=== PATIENT | male | born 1950 | race Caucasian/White ===

== ENCOUNTER 2018-02-14 19:10 | Observation (INO) | payer OTHER ==
[2018-02-14 20:06] LABS: Absolute Monocytes 0.4 K/uL (0.1-1.3); Absolute Neutrophil 4.7 K/uL (1.8-8.0); Basophils % 0.4 % (0-1.3); Eosinophils % 0.3 % (0-4.4); Hematocrit 36.1 % (39.6-49.0); Lymphocytes % 15.8 % (15.3-44.8); MCH 30.6 pg (27.0-35.0); MCV 92.7 fL (80-100); MPV 7.9 fL (7.6-11.3); Monocytes % 6.2 % (3.3-12.3); Protime INR 0.92
[2018-02-14 20:17] LABS: Potassium 3.8 mEq/L (3.6-5.0)
[2018-02-14 20:23] LABS: Albumin 3.1 g/dL (3.2-5.5); Bilirubin Direct 0.1 mg/dL (0-0.2); Bilirubin Total 0.8 mg/dL (0.3-1.2); Magnesium 1.8 mg/dL (1.8-2.5); Protein, Total 5.7 g/dL (6.0-8.3)
[2018-02-14 21:23] LABS: Blood Morphology Comment NOT SEEN (NOT SEEN); Platelet Estimate ADEQ; Urine White Blood Cell Casts OK
--- NOTE | 2018-02-14 21:31 | EDPHYS ---
Physician Documentation [facility] Name: Victoriano Coronel Age: 67 yrs Sex: Male : 1950 Arrival Date: 02/14/2018 Time: 19:14 Bed 25 Private MD: Maco Han C ED Physician Gerson Matias HPI: 02/14 19:30 This 67 yrs old Male presents to ER via Ambulatory with complaints of Feet kdr Swelling, Leg Swelling. 19:30 The patient presents with swelling. The complaints affect the lateral aspect of left kdr calf, left lateral ankle, lateral aspect of left foot, left calf, left Achilles, left heel, medial aspect of left calf, left medial ankle, medial aspect of left foot, left vogt, anterior aspect of left ankle and dorsum of left foot, lateral aspect of right calf, right ankle, lateral aspect of right foot, right calf, right Achilles, right heel, medial aspect of right calf, medial aspect of right foot, right vogt, anterior aspect of right ankle and dorsum of right foot. Context: The problem was sustained at home, resulted from an unknown cause, the patient can fully bear weight, the patient is able to ambulate, Problem is a result from a previous injury: No. Had a long car trip last week. Onset: The symptoms/episode began/occurred gradually, 2 day(s) ago. Modifying factors: The symptoms are alleviated by nothing. the symptoms are aggravated by nothing. Associated signs and symptoms: The patient has no apparent associated signs or symptoms. Treatment prior to arrival includes: no previous treatment. Severity of symptoms: At their worst the symptoms were mild, moderate, just prior to arrival, in the emergency department the symptoms are unchanged. The patient has not experienced similar symptoms in the past. The patient has not recently seen a physician. The patient had a long car trip last week. Has had intermittent swelling but never this severe or persistent. Was admitted in 2014 for phlebitis.. Historical: - Allergies: 19:32 No Known Allergies; ak1 - Home Meds: 19:32 metformin 500 mg Oral tab [Active]; trazodone 100 mg Oral tab [Active]; Symbicort ak1 160-4.5 mcg/actuation inhalation HFAA [Active]; clondine 0.3mg [Active]; losartan 100 mg oral tab [Active]; atorvastatin 20 mg oral tab [Active]; amlodipine 5 mg tab [Active]; donepezil 10 mg oral tab 1 tab once daily [Active]; doxazosin mesylate (bulk) 2mg miscellaneous powd [Active]; - PMHx: 19:32 COPD; Diabetes - NIDDM; Diverticulitis; colitis; Hypertension; ak1 - PSHx: 19:32 None; ak1 - Immunization history:: Adult Immunizations unknown. - Social history:: Smoking status: Patient/guardian denies using tobacco. - Ebola Screening: : Patient negative for fever greater than or equal to 101.5 degrees Fahrenheit, and additional compatible Ebola Virus Disease symptoms Patient denies exposure to infectious person Patient denies travel to an Ebola-affected area in the 21 days before illness onset. ROS: 19:30 Constitutional: Negative for fever, chills, and weight loss, Eyes: Negative for injury, kdr pain, redness, and discharge, ENT: Negative for injury, pain, and discharge, Neck: Negative for injury, pain, and swelling, Cardiovascular: Negative for chest pain, palpitations, and edema, Respiratory: Negative for shortness of breath, cough, wheezing, and pleuritic chest pain, Abdomen/GI: Negative for abdominal pain, nausea, vomiting, diarrhea, and constipation, Back: Negative for injury and pain, : Negative for injury, bleeding, discharge, and swelling, Skin: Negative for injury, rash, and discoloration, Neuro: Negative for headache, weakness, numbness, tingling, and seizure activity. Psych: Negative for depression, anxiety, suicide ideation, homicidal ideation, and hallucinations, Allergy/Immunology: Negative for hives, rash, and allergies, Endocrine: Negative for neck swelling, polydipsia, polyuria, polyphagia, and marked weight changes, Hematologic/Lymphatic: Negative for swollen nodes, abnormal bleeding, and unusual bruising. 19:30 MS/extremity: Positive for swelling, Negative for injury or acute deformity, decreased range of motion, deformity, ecchymosis, erythema, laceration, paresthesias, rash, tenderness, tingling. Exam: 19:30 Constitutional: This is a well developed, well nourished patient who is awake, alert, kdr and in no acute distress. Head/Face: Normocephalic, atraumatic. Eyes: Pupils equal round and reactive to light, extra-ocular motions intact. Lids and lashes normal. Conjunctiva and sclera are non-icteric and not injected. Cornea within normal limits. Periorbital areas with no swelling, redness, or edema. Neck: Trachea midline, no thyromegaly or masses palpated, and no cervical lymphadenopathy. Supple, full range of motion without nuchal rigidity, or vertebral point tenderness. No Meningismus. Chest/axilla: Normal chest wall appearance and motion. Nontender with no deformity. No lesions are appreciated. Cardiovascular: Regular rate and rhythm with a normal S1 and S2. No gallops, murmurs, or rubs. Normal PMI, no JVD. No pulse deficits. Respiratory: Lungs have equal breath sounds bilaterally, clear to auscultation and percussion. No rales, rhonchi or wheezes noted. No increased work of breathing, no retractions or nasal flaring. Abdomen/GI: Soft, non-tender, with normal bowel sounds. Distended (normal) abdomen but no tympany. No guarding or rebound. No evidence of tenderness throughout. Back: No spinal tenderness. No costovertebral tenderness. Full range of motion. Skin: Warm, dry with normal turgor. Normal color with no rashes, no lesions, and no evidence of cellulitis. Neuro: Awake and alert, GCS 15, oriented to person, place, time, and situation. Cranial nerves II-XII grossly intact. Motor strength 5/5 in all extremities. Sensory grossly intact. Cerebellar exam normal. Normal gait. Psych: Awake, alert, with orientation to person, place and time. Behavior, mood, and affect are within normal limits. 19:30 Musculoskeletal/extremity: Extremities: ROM: no acute changes, DVT Exam: no pain, no tenderness, negative Homans' sign noted on exam, no appreciated bluish discoloration, no erythema, no increased warmth, swelling, that is marked, of the right leg, of the left leg, tenderness, that is mild, of the right leg, of the left leg, Nails: Vital Signs: 19:25 BP 142 / 72; Pulse 81; Resp 20; Temp 98.1; Pulse Ox 95% on R/A; Weight 86.18 kg (R); ak1 Height 5 ft. 8 in. (172.72 cm) (R); Pain 5/10; 20:35 BP 123 / 72; Pulse 66; Resp 17; Pulse Ox 95% on R/A; kr2 22:31 BP 129 / 81; Pulse 74; Resp 18; Pulse Ox 96% on R/A; mt 19:25 Body Mass Index 28.89 (86.18 kg, 172.72 cm) ak1 MDM: 19:30 Data reviewed: vital signs, nurses notes, lab test result(s), radiologic studies. kdr Counseling: I had a detailed discussion with the patient and/or guardian regarding: the historical points, exam findings, and any diagnostic results supporting the discharge/admit diagnosis, lab results, radiology results. 21:30 Patient medically screened. [facility] 02/14 19:29 Order name: Basic Metabolic Panel; Complete Time: 20:56 kdr 02/14 19:29 Order name: BNP; Complete Time: 20:56 [facility] 02/14 19:29 Order name: CBC with Diff [facility] 02/14 19:29 Order name: LFT's; Complete Time: 20:56 [facility] 02/14 19:29 Order name: Magnesium; Complete Time: 20:56 [facility] 02/14 19:29 Order name: PT-INR; Complete Time: 20:56 [facility] 02/14 19:29 Order name: Ptt, Activated; Complete Time: 20:56 [facility] 02/14 19:29 Order name: Troponin (emerg Dept Use Only); Complete Time: 20:56 [facility] 02/14 20:20 Order name: CBC Smear Scan [facility] 02/14 22:09 Order name: Basic Metabolic Panel [facility] 02/14 22:09 Order name: Basic Metabolic Panel [facility] 02/14 22:09 Order name: CBC with Automated Diff EDMS 02/14 22:09 Order name: CBC with Automated Diff EDMS 02/14 22:37 Order name: Urine Dipstick--Ancillary (enter results) eb 02/14 19:29 Order name: XRAY Chest (1 view) [facility] 02/14 19:29 Order name: EKG; Complete Time: 19:30 kdr 02/14 19:29 Order name: Cardiac monitoring; Complete Time: 19:52 [facility] 02/14 19:29 Order name: EKG - Nurse/Tech; Complete Time: 20:09 kdr 02/14 19:29 Order name: IV Saline Lock; Complete Time: 19:52 kdr 02/14 19:29 Order name: Labs collected and sent; Complete Time: 19:52 [facility] 02/14 19:29 Order name: O2 Per Protocol; Complete Time: 19:52 [facility] 02/14 19:29 Order name: O2 Sat Monitoring; Complete Time: 19:52 [facility] 02/14 19:29 Order name: Urine Dipstick-Ancillary (obtain specimen); Complete Time: 22:55 [facility] 02/14 19:29 Order name: US Extremity Venous W Compression Tera kdr 02/14 22:09 Order name: Regular EDMS 02/14 22:54 Order name: US EDMS 02/14 22:55 Order name: Urine Dipstick-Ancillary EDMS Administered Medications: 22:00 Drug: Lasix 20 mg Route: IVP; Site: left antecubital; kr2 23:25 Follow up: Response: No adverse reaction kr2 Disposition: 02/14/18 21:30 Hospitalization ordered by Maco Han for Inpatient Admission. Preliminary diagnosis is Bilateral Lower extremity swelling/edema. - Bed requested for Telemetry/MedSurg (Inpatient). - Status is Inpatient Admission. kr2 - Condition is Fair. - Problem is new. - Symptoms are unchanged. UTI on Admission? No Signatures: Dispatcher [facility] Almita Collado RN RN mw Gerson Matias MD MD kdr Jonna Butler RN RN ak1 Ashlee Mckenzie, JUNG RN kr2 Corrections: (The following items were deleted from the chart) 21:53 21:30 Hospitalization Ordered by A Emely STRATTON for Inpatient Admission. Preliminary mw diagnosis is Bilateral Lower extremity swelling/edema. Bed requested for Telemetry/MedSurg (Inpatient). Status is Inpatient Admission. Condition is Fair. Problem is new. Symptoms are unchanged. UTI on Admission? No. kdr : 21:53 02/14/2018 21:30 Hospitalization Ordered by A Emely STRATTON for Inpatient Admission. kr2 Preliminary diagnosis is Bilateral Lower extremity swelling/edema. Bed requested for Telemetry/MedSurg (Inpatient). Status is Inpatient Admission. Condition is Fair. Problem is new. Symptoms are unchanged. UTI on Admission? No. mw
--- NOTE | 2018-02-14 21:31 | ER ---
Nurse's Notes [facility] Name: Victoriano Coronel Age: 67 yrs Sex: Male : 1950 Arrival Date: 02/14/2018 Time: 19:14 Bed 25 Private MD: Maco Han C Diagnosis: Bilateral Lower extremity swelling/edema Presentation: 02/14 19:25 Presenting complaint: Patient states: bilateral lower leg and foot pitting edema since ak1 yesterday. pt currently taking prednisone, Liadia from Dr. Nova for his colitis. Transition of care: patient was not received from another setting of care. Onset of symptoms was February 13, 2018. Risk Assessment: Do you want to hurt yourself or someone else? Patient reports no desire to harm self or others. Initial Sepsis Screen: Does the patient meet any 2 criteria? No. Patient's initial sepsis screen is negative. Does the patient have a suspected source of infection? No. Patient's initial sepsis screen is negative. Care prior to arrival: None. 19:25 Method Of Arrival: Ambulatory ak1 19:25 Acuity: JAVI 3 ak1 Triage Assessment: 19:33 General: Appears in no apparent distress. Behavior is calm, cooperative. Pain: ak1 Complains of pain in right foot, left foot, right leg and left leg. EENT: No signs and/or symptoms were reported regarding the EENT system. Neuro: No deficits noted. Cardiovascular: No deficits noted. Respiratory: No deficits noted. GI: No signs and/or symptoms were reported involving the gastrointestinal system. : No signs and/or symptoms were reported regarding the genitourinary system. Derm: Skin is dry, Skin temperature is warm. Musculoskeletal: Swelling pitting edema. Historical: - Allergies: 19:32 No Known Allergies; ak1 - Home Meds: 19:32 metformin 500 mg Oral tab [Active]; trazodone 100 mg Oral tab [Active]; Symbicort ak1 160-4.5 mcg/actuation inhalation HFAA [Active]; clondine 0.3mg [Active]; losartan 100 mg oral tab [Active]; atorvastatin 20 mg oral tab [Active]; amlodipine 5 mg tab [Active]; donepezil 10 mg oral tab 1 tab once daily [Active]; doxazosin mesylate (bulk) 2mg miscellaneous powd [Active]; - PMHx: 19:32 COPD; Diabetes - NIDDM; Diverticulitis; colitis; Hypertension; ak1 - PSHx: 19:32 None; ak1 - Immunization history:: Adult Immunizations unknown. - Social history:: Smoking status: Patient/guardian denies using tobacco. - Ebola Screening: : Patient negative for fever greater than or equal to 101.5 degrees Fahrenheit, and additional compatible Ebola Virus Disease symptoms Patient denies exposure to infectious person Patient denies travel to an Ebola-affected area in the 21 days before illness onset. Screenin:33 Abuse screen: Denies threats or abuse. Denies injuries from another. Nutritional ak1 screening: No deficits noted. Tuberculosis screening: No symptoms or risk factors identified. Fall Risk None identified. Assessment: 19:30 General: Appears in no apparent distress. comfortable, well groomed, well developed, kr2 well nourished, Behavior is calm, cooperative, appropriate for age. Pain: Complains of pain in left leg and right leg Pain radiates to left foot and right foot Pain currently is 2 out of 10 on a pain scale. Quality of pain is described as aching, tender, Is continuous, Alleviated by rest, Aggravated by increased activity, weight bearing. Neuro: Level of Consciousness is awake, alert, obeys commands, Oriented to person, place, time, situation, Appropriate for age. Cardiovascular: Capillary refill < 3 seconds in bilateral fingers Patient's skin is warm and dry. Edema is 2+ to left leg and right leg. Respiratory: Airway is patent Respiratory effort is even, unlabored, Respiratory pattern is regular, symmetrical. GI: Abdomen is round non-distended. : No signs and/or symptoms were reported regarding the genitourinary system. EENT: Oral mucosa is moist. Derm: Skin is intact, is healthy with good turgor, Skin is pink, warm \T\ dry. redness to bilateral lower extremities. Musculoskeletal: Circulation, motion, and sensation intact. 20:30 Reassessment: Patient appears in no apparent distress at this time. Patient and/or kr2 family updated on plan of care and expected duration. Pain level reassessed. Patient is alert, oriented x 3, equal unlabored respirations, skin warm/dry/pink. Patient denies pain at this time. 21:30 Reassessment: No changes from previously documented assessment. kr2 22:30 Reassessment: Patient appears in no apparent distress at this time. kr2 23:26 Reassessment: Patient appears in no apparent distress at this time. Patient and/or kr2 family updated on plan of care and expected duration. Pain level reassessed. Patient is alert, oriented x 3, equal unlabored respirations, skin warm/dry/pink. Patient denies pain at this time. Vital Signs: 19:25 BP 142 / 72; Pulse 81; Resp 20; Temp 98.1; Pulse Ox 95% on R/A; Weight 86.18 kg (R); ak1 Height 5 ft. 8 in. (172.72 cm) (R); Pain 5/10; 20:35 BP 123 / 72; Pulse 66; Resp 17; Pulse Ox 95% on R/A; kr2 22:31 BP 129 / 81; Pulse 74; Resp 18; Pulse Ox 96% on R/A; mt 19:25 Body Mass Index 28.89 (86.18 kg, 172.72 cm) ak1 ED Course: 19:14 Patient arrived in ED. es 19:14 Maco Han MD is Private Physician. es 19:14 Gerson Matias MD is Attending Physician. kdr 19:27 Triage completed. ak1 19:32 Arm band placed on Patient placed in an exam room, on a stretcher, on pulse oximetry, ak1 Patient notified of wait time. 19:34 Patient has correct armband on for positive identification. Bed in low position. Call ak1 light in reach. Side rails up X 1. Pulse ox on. NIBP on. 19:35 Inserted saline lock: 20 gauge in left antecubital area, using aseptic technique. Blood kr2 collected. 19:43 Ashlee Mckenzie, JUNG is Primary Nurse. kr2 20:00 EKG done, by ED staff, reviewed by Gerson Matias MD. kr2 20:06 X-ray completed. Portable x-ray completed in exam room. Patient tolerated procedure ag1 well. 20:10 XRAY Chest (1 view) In Process Unspecified. EDMS 21:30 Maco Han MD is Hospitalizing Provider. kdr 23:25 Inserted saline lock: 20 gauge in right wrist, using aseptic technique. kr2 23:26 No provider procedures requiring assistance completed. IV is swollen, with fluids not kr2 infusing freely, IV discontinued, intact, bleeding controlled, No redness/swelling at site. Pressure dressing applied. Administered Medications: 22:00 Drug: Lasix 20 mg Route: IVP; Site: left antecubital; kr2 23:25 Follow up: Response: No adverse reaction kr2 Outcome: 21:30 Decision to Hospitalize by Provider. kdr 23:27 Admitted to Tele accompanied by tech, family with patient, via stretcher, room 210, kr2 with chart, Report called to Vanessa 23:27 Condition: stable 23:27 Instructed on the need for admit, Demonstrated understanding of instructions. 23:28 Patient left the ED. kr2 Signatures: Dispatcher [employer] EDMS Gerson Matias MD MD kdr Salyer, Edna es Krenek, Amber RN RN [email or web address] Lina Krishnan Moriah mt Reaves, Karey RN RN kr2
[2018-02-14] MEDS ORDERED: FUROSEMIDE 20 MG/ 2ML VIAL ONE (21:35)
[2018-02-14] MEDS ORDERED: FUROSEMIDE 40 MG/4 ML VIAL ONE (21:35)
[2018-02-14] MEDS ORDERED: ACETAMINOPHEN 500 MG TAB PO PRN (22:06)
--- NOTE | 2018-02-14 22:28 | RAD REPORT ---
EXAM DESCRIPTION: Ricky Single View02/14/2018 8:10 pm CLINICAL HISTORY: Chest pain COMPARISON: November 2017 FINDINGS: The lungs appear clear of acute infiltrate. The heart is normal size IMPRESSION: No acute abnormalities displayed
--- NOTE | 2018-02-14 22:53 | RAD REPORT ---
EXAM DESCRIPTION: VASExtrem Venous W Compress Bil02/14/2018 10:46 pm CLINICAL HISTORY: Bilateral leg swelling COMPARISON: 2013 FINDINGS: The common femoral, superficial femoral, popliteal and posterior tibial veins bilaterally are compressible and demonstrate augmentation. Doppler demonstrates good flow. IMPRESSION: No evidence of deep venous thrombosis involving either lower extremity.
[2018-02-14 22:55] LABS: Urine Blood NEGATIVE (NEG); Urine Glucose NEGATIVE (NEG); Urine Protein NEGATIVE (NEG); Urine Specific Gravity 1.025 (1.005-1.030)
[2018-02-14 23:40] VITALS: O2SAT 96
[2018-02-15 00:42] VITALS: BMI 29.5
[2018-02-15 05:14] LABS: Absolute Lymphocytes (CBC) 1.6 K/uL (0.7-4.9); Absolute Monocytes 0.6 K/uL (0.1-1.3); Absolute Neutrophil 6.6 K/uL (1.8-8.0); Basophils % 0.3 % (0-1.3); Eosinophils % 0.1 % (0-4.4); Hematocrit 38.2 % (39.6-49.0); Lymphocytes % 17.7 % (15.3-44.8); MCH 31.3 pg (27.0-35.0); MCV 91.3 fL (80-100); MPV 7.7 fL (7.6-11.3); Monocytes % 6.6 % (3.3-12.3); RBC Red Blood Cell Count 4.18 M/uL (4.33-5.43)
[2018-02-15 05:56] LABS: Potassium 3.1 mEq/L (3.6-5.0)
--- NOTE | 2018-02-15 06:30 | EKG ---
Test Date: 2018-02-14 Test Time: 20:01:41 Brim Cutter: ADRI MEASUREMENT RESULTS: Intervals: Rate: 68 MT: 158 QRSD: 84 QT: 376 QTc: 399 [place]: P: 56 MT: 158 QRS: 59 T: 76 INTERPRETIVE STATEMENTS: Normal sinus rhythm Normal ECG Compared to ECG 07/19/2006 15:47:41 No significant changes Electronically Signed On 02-15-18 06:29:41 CDT by Jeremy Cruz
[2018-02-15 07:53] VITALS: BP 160/71; TEMP 97.6
[2018-02-15] MEDS ORDERED: FUROSEMIDE 20 MG/ 2ML VIAL IV SCH (09:00)
[2018-02-15] MEDS ORDERED: POTASSIUM CL SA 10 MEQ TAB PO ONE (09:13)
--- NOTE | 2018-02-15 15:45 | ECHO ---
HEIGHT: 5 ft 8 in WEIGHT: 194 lb 2 oz DATE OF STUDY: 02/15/[address]: Massimo Han MD 2-DIMENSIONAL: YES M.MODE: YES DOPPLER: YES COLOR FLOW: YES TDS: NO PORTABLE: NO DEFINITY: NO BUBBLE STUDY: NO DIAGNOSIS: LEG SWELLING, EVALUATE LEFT VENTRICULAR EJECTION FRACTION CARDIAC HISTORY: CATHERIZATION: NO SURGERY: NO PROSTHETIC VALVE: NO PACEMAKER: NO MEASUREMENTS (cm) DIASTOLIC (NORMALS) SYSTOLIC (NORMALS) IVSd 1.2 (0.6-1.2) LA Diam (1.9-4.0) LVEF 70% LVIDd 4.8 (3.5-5.7) LVIDs 2.9 (2.0-3.5) %FS 39% LVPWd 1.2 (0.6-1.2) Ao Diam 2.9 (2.0-3.7) 2 DIMENSIONAL ASSESSMENT: RIGHT ATRIUM: NORMAL LEFT ATRIUM: NORMAL RIGHT VENTRICLE: NORMAL LEFT VENTRICLE: NORMAL TRICUSPID VALVE: NORMAL MITRAL VALVE: NORMAL PULMONIC VALVE: NORMAL AORTIC VALVE: NORMAL PERICARDIAL EFFUSION: NONE AORTIC ROOT: NORMAL LEFT VENTRICULAR WALL MOTION: NORMAL. DOPPLER/COLOR FLOW: NORMAL. COMMENTS: NORAML 2D ECHO WITH DOPPLER. NO WALL MOTION ABNORMALITY. NO EFFUSION. TECHNOLOGIST: EMILIA LILLY
[2018-02-15] MEDS ORDERED: CLONIDINE HCL 0.3 MG PO SCH (21:00)
--- NOTE | 2018-02-16 01:55 | SS ---
Date of Discharge: 02/15/2018 Chief Complaint: Leg swelling. History Of Present Illness: This is a 67-year-old male patient, who recently traveled to go out of town last week and started to have bilateral leg swelling in last 2-3 days, so he came into emergency room yesterday evening. After he was evaluated, he was admitted to the hospital. Denies any chest pain or shortness of breath. No fever. No pain in legs except for some discomfort due to swelling. Allergies: NO KNOWN ALLERGIES. Medications: Amlodipine 5 mg two times a day, atorvastatin 20 mg daily after evening meal, budesonide 3 mg capsules three times a day, clonidine 0.3 mg three times a day, doxazosin 2 mg takes half a tablet two times a day, Flonase nasal spray twice a day, hydrochlorothiazide 12.5 mg p.o. daily, Lomotil p.r.n. for diarrhea, losartan 100 mg p.o. daily, mesalamine 1.2 g one tablet two times a day, Spiriva inhaler one puff daily, Symbicort inhaler 160 mcg two puffs two times a day, Ventolin inhaler p.r.n. Review of Systems: Cardiovascular: As mentioned above. All other systems reviewed and negative. Past Medical History: Significant for COPD, hypertension, type 2 diabetes mellitus, testicular hypofunction, hyperlipidemia, Alzheimer disease, insomnia, allergic rhinitis, colitis. Past Surgical History: Unremarkable. Family History: Significant for hypertension, myocardial infarction, diabetes. Social History: Prior history of smoking, use of alcohol negative. Physical Examination: Vital Signs: Temperature 98.3, pulse 84, respiratory rate 18, blood pressure 156/70. Height 5 feet 8 inches. Weight 194 pounds. General: Awake, alert, oriented, not in distress. HEENT: Head atraumatic, normocephalic. Conjunctivae nonerythematous. Sclerae white. Mouth, no thrush or edema noted. Ears/Nose, no mass, lesion, discharge noted. Neck: Supple. No JVD, lymph nodes, bruit, thyromegaly noted. Lungs: Bilateral good equal air entry. Clear to auscultation. No rhonchi. No rales. Heart: Normal heart sounds, no murmur or gallop. Abdomen: Soft, bowel sounds normal. No guarding, rigidity, tenderness, mass, hepatosplenomegaly, distention, or bruit noted. Extremities: Bilateral grade 2 to grade 3 pedal edema pitting. Skin color and temperature in both legs normal. Skin: No rash, ulcer, cellulitis. Lymphatics: No lymph node enlargement in neck, supraclavicular, infraclavicular region. Neuro: No focal neurological deficit. Chest: Unremarkable. External Genitalia: Deferred. Rectal: Deferred. Laboratory Data: White count yesterday 6.1, hemoglobin 11.9, platelets 178. This morning, white count 8.8, hemoglobin 13.1, platelets 173. Yesterday, sodium 137, potassium 3.8, chloride 104, bicarb 28, BUN 19, creatinine 1.12, glucose 171. Liver function tests unremarkable. Troponin less than 0.03. BNP 31. This morning, Chem-7 unremarkable, except potassium 3.1. Venous Doppler of both lower extremity negative for DVT. Hospital Course: After the patient was evaluated in the ER, he was admitted to the hospital. After I examined him, he informed me the leg swelling was already better overnight with the diuretic therapy. There was no evidence of DVT. He does not have any evidence of congestive heart failure. So I did recommend him that we should be able to discharge him to go home with outpatient management and he was agreeable to do so. Potassium was ordered to be corrected per potassium replacement protocol. Final Diagnoses: 1. Leg edema. 2. Hypokalemia. 3. Anemia. 4. Hypertension. 5. Hyperlipidemia. 6. Colitis. 7. Alzheimer disease. Discharge Medications And Instructions: Continue all prior home medications except stop amlodipine and stop doxazosin and start hydralazine 10 mg by mouth 2 times a day. Follow up at my office in 2 weeks. Upon discharge from the hospital, the patient came into office to get this discharge instruction and he was given written instructions. The patient will continue all other medications as he was taking before. JOHN/MODL Voice ID: [id number] Report ID: [id number] KAMERON
[2018-02-16] MEDS ORDERED: HOME MED 1 EA UNK (Donepezil Hcl [Donepezil Hcl] 10 MG) PO SCH (09:00)
[2018-02-16] MEDS ORDERED: HOME MED 1 EA UNK (Losartan Potassium [Cozaar] 100 MG) PO SCH (09:00)
[2018-02-16] MEDS ORDERED: HOME MED 1 EA UNK (Trazodone Hcl [Trazodone Hcl] 100 MG) PO SCH (09:00)
[2018-02-16] MEDS ORDERED: METFORMIN 500 MG PO SCH (09:00)
== END 2018-02-15 11:28 | disposition home or self-care (01) ==
LOC: ER 19:10 → ERHOLD 22:05 → INTOOBSV 22:05 → 2ND 22:46
PROVIDERS: ADMIT Internal Medicine; ATTEND Internal Medicine
DX: R60.0 Localized edema (principal); E87.6 Hypokalemia; D64.9 Anemia, unspecified; I10 Essential (primary) hypertension; E78.5 Hyperlipidemia, unspecified
CPT/HCPCS: 36415; 71045; 80048; 80076; 81003; 83735; 83880; 84484; 85025; 85610; 85730; 93005; 93306; 93970; 96374; 99285; G0378; J1940

== ENCOUNTER 2018-02-24 23:06 | Emergency (ER) | payer OTHER ==
[2018-02-24] MEDS ORDERED: LIDOCAINE 1% W/EPI 1:100,000 MDV 50 ML VIAL ONE (23:36)
[2018-02-25] MEDS ORDERED: SMZ./TMP. 800/160 MG TABLET ONE (00:08)
[2018-02-25] MEDS ORDERED: DOXYCYCLINE 100 MG CAP PO ONE (00:08)
[2018-02-25] MEDS ORDERED: TETANUS & DIPHTHERIA TOX,ADULT 0.5 ML VIAL ONE (00:09)
--- NOTE | 2018-02-25 01:42 | ER ---
Nurse's Notes [facility] Name: Victoriano Coronel Age: 67 yrs Sex: Male : 1950 Arrival Date: 02/24/2018 Time: 23:13 Bed 20 Private MD: Maco Han C Diagnosis: Laceration without foreign body, left lower leg;Fall due to bumping against object;Type 2 diabetes mellitus Presentation: 02/24 23:10 Presenting complaint: Patient states: that he fell on his boat deck and now has fc abrasion to right elbow, gash 4 inches long to left lower leg and bruising to left leg/right arm. Denies LOC. Transition of care: patient was not received from another setting of care. Onset of symptoms was February 24, 2018 at 21:00. Risk Assessment: Do you want to hurt yourself or someone else? Patient reports no desire to harm self or others. Initial Sepsis Screen: Does the patient meet any 2 criteria? No. Patient's initial sepsis screen is negative. Does the patient have a suspected source of infection? No. Patient's initial sepsis screen is negative. Care prior to arrival: Bleeding of injury controlled. Injury dressed. 23:10 Method Of Arrival: Ambulatory fc 23:10 Acuity: JAVI 4 fc Historical: - Allergies: 23:31 No Known Allergies; fc - Home Meds: 23:31 amlodipine 5 mg tab [Active]; atorvastatin 20 mg Oral tab [Active]; clondine 0.3mg fc [Active]; donepezil 10 mg Oral tab 1 tab once daily [Active]; losartan 100 mg Oral tab [Active]; metformin 500 mg Oral tab [Active]; Symbicort 160-4.5 mcg/actuation inhalation HFAA [Active]; trazodone 100 mg Oral tab [Active]; - PMHx: 23:31 Colitis; Diabetes - NIDDM; Diverticulitis; COPD; Hypertension; fc - PSHx: 23:31 None; fc - Immunization history:: Last tetanus immunization: up to date. - Social history:: Smoking status: Patient/guardian denies using tobacco. - Ebola Screening: : Patient negative for fever greater than or equal to 101.5 degrees Fahrenheit, and additional compatible Ebola Virus Disease symptoms Patient denies exposure to infectious person Patient denies travel to an Ebola-affected area in the 21 days before illness onset. - Family history:: not pertinent. Screenin:29 Abuse screen: Denies threats or abuse. Nutritional screening: No deficits noted. Tuberculosis screening: No symptoms or risk factors identified. Fall Risk None identified. Assessment: 23:33 General: Appears in no apparent distress. comfortable, Behavior is calm, cooperative. rv Pain: Complains of pain in left vogt. Neuro: Level of Consciousness is awake, alert, obeys commands, Oriented to person, place, time, situation. Cardiovascular: Capillary refill < 3 seconds. Respiratory: Airway is patent. GI: No signs and/or symptoms were reported involving the gastrointestinal system. : No signs and/or symptoms were reported regarding the genitourinary system. EENT: No signs and/or symptoms were reported regarding the EENT system. Derm: Wound noted left vogt Wound is lacerated wound about 5-6 inches long. Vital Signs: 23:10 BP 185 / 86; Pulse 71; Resp 18; Temp 98.1(O); Pulse Ox 96% on R/A; Weight 86.18 kg (R); fc Height 5 ft. 8 in. (172.72 cm) (R); Pain 7/10; 23:10 Body Mass Index 28.89 (86.18 kg, 172.72 cm) ED Course: 23:10 Arm band placed on Patient placed in an exam room, on a stretcher. 23:13 Patient arrived in ED. es 23:13 Maco Han MD is Private Physician. es 23:27 Triage completed. 23:29 Patient has correct armband on for positive identification. Bed in low position. Call light in reach. 23:33 Mark Levi MD is Attending Physician. [facility] 06 00:01 X-ray completed. Portable x-ray completed in exam room. Patient tolerated procedure kw well. 00:03 XRAY Tib Fib RIGHT In Process Unspecified. EDMS 01:30 Maco Han MD is Referral Physician. joselin 01:30 Vincent Hodges MD is Referral Physician. [facility] 01:39 Assist provider with laceration repair on left vogt that was between 2.6 to 7.5 cm rv using sutures. Set up tray. Performed by Mark Levi MD Dressed with Neosporin. Patient did not have IV access during this emergency room visit. Administered Medications: 00:14 Drug: Tetanus-Diphtheria Toxoid Adult 0.5 ml {Clinical Nurse Educator: [employer] ([employer]). Exp: rv 05/19/2020. Lot #: [id number]. } Route: IM; Site: right deltoid; 00:15 Drug: Bactrim (160 mg-800 mg (DS) 1 tablet Route: PO; rv 00:15 Drug: Doxycycline 200 mg Route: PO; rv 00:20 Drug: Lidocaine-Epinephrine -1%: (1:100,000) 1 vials {Note: at bedside for provider.} rv Volume: 20 ml; Route: Infiltration; Outcome: 01:30 Discharge ordered by . joselin 01:40 Discharged to home ambulatory. rv 01:40 Condition: improved 01:40 Discharge instructions given to patient, Instructed on discharge instructions, medication usage, wound care. 01:41 Patient left the ED. rv Signatures: Dispatcher [employer] Mark Ybarra MD MD cha Salyer, Edna es Chretien, Felicia, RN RN Brenda Pérez Ronaldo, RN RN rv
--- NOTE | 2018-02-25 01:42 | EDPHYS ---
Physician Documentation [facility] Name: Victoriano Coronel Age: 67 yrs Sex: Male : 1950 Arrival Date: 02/24/2018 Time: 23:13 Bed 20 Private MD: Maco Han C ED Physician Mark Levi HPI: 02/24 23:59 This 67 yrs old Male presents to ER via Ambulatory with complaints of INJURY joselin TO LEG. 23:59 The patient presents with decreased range of motion, a laceration, 8 cm(s), pain. The joselin complaints affect the left vogt. Context: The problem was sustained outdoors. Onset: The symptoms/episode began/occurred just prior to arrival. Modifying factors: The symptoms are alleviated by elevating leg, the symptoms are aggravated by movement, weight bearing. Associated signs and symptoms: The patient has no apparent associated signs or symptoms. Treatment prior to arrival includes: no previous treatment. The patient has not experienced similar symptoms in the past. Historical: - Allergies: 23:31 No Known Allergies; fc - Home Meds: 23:31 amlodipine 5 mg tab [Active]; atorvastatin 20 mg Oral tab [Active]; clondine 0.3mg fc [Active]; donepezil 10 mg Oral tab 1 tab once daily [Active]; losartan 100 mg Oral tab [Active]; metformin 500 mg Oral tab [Active]; Symbicort 160-4.5 mcg/actuation inhalation HFAA [Active]; trazodone 100 mg Oral tab [Active]; - PMHx: 23:31 Colitis; Diabetes - NIDDM; Diverticulitis; COPD; Hypertension; fc - PSHx: 23:31 None; fc - Immunization history:: Last tetanus immunization: up to date. - Social history:: Smoking status: Patient/guardian denies using tobacco. - Ebola Screening: : Patient negative for fever greater than or equal to 101.5 degrees Fahrenheit, and additional compatible Ebola Virus Disease symptoms Patient denies exposure to infectious person Patient denies travel to an Ebola-affected area in the 21 days before illness onset. - Family history:: not pertinent. ROS: 23:59 Constitutional: Negative for fever, chills, and weight loss, Eyes: Negative for injury, joselin pain, redness, and discharge, ENT: Negative for injury, pain, and discharge, Neck: Negative for injury, pain, and swelling, Cardiovascular: Negative for chest pain, palpitations, and edema, Respiratory: Negative for shortness of breath, cough, wheezing, and pleuritic chest pain, Abdomen/GI: Negative for abdominal pain, nausea, vomiting, diarrhea, and constipation, Back: Negative for injury and pain, : Negative for injury, bleeding, discharge, and swelling, Skin: Negative for injury, rash, and discoloration, Neuro: Negative for headache, weakness, numbness, tingling, and seizure, Psych: Negative for depression, anxiety, suicide ideation, homicidal ideation, and hallucinations, Allergy/Immunology: Negative for hives, rash, and allergies, Endocrine: Negative for neck swelling, polydipsia, polyuria, polyphagia, and marked weight changes, Hematologic/Lymphatic: Negative for swollen nodes, abnormal bleeding, and unusual bruising. 23:59 MS/extremity: Positive for decreased range of motion, laceration, of the left vogt. Exam: 23:59 Constitutional: This is a well developed, well nourished patient who is awake, alert, joselin and in no acute distress. Head/Face: Normocephalic, atraumatic. Eyes: Pupils equal round and reactive to light, extra-ocular motions intact. Lids and lashes normal. Conjunctiva and sclera are non-icteric and not injected. Cornea within normal limits. Periorbital areas with no swelling, redness, or edema. ENT: Nares patent. No nasal discharge, no septal abnormalities noted. Tympanic membranes are normal and external auditory canals are clear. Oropharynx with no redness, swelling, or masses, exudates, or evidence of obstruction, uvula midline. Mucous membranes moist. Neck: Trachea midline, no thyromegaly or masses palpated, and no cervical lymphadenopathy. Supple, full range of motion without nuchal rigidity, or vertebral point tenderness. No Meningismus. Chest/axilla: Normal chest wall appearance and motion. Nontender with no deformity. No lesions are appreciated. Cardiovascular: Regular rate and rhythm with a normal S1 and S2. No gallops, murmurs, or rubs. Normal PMI, no JVD. No pulse deficits. Respiratory: Lungs have equal breath sounds bilaterally, clear to auscultation and percussion. No rales, rhonchi or wheezes noted. No increased work of breathing, no retractions or nasal flaring. Abdomen/GI: Soft, non-tender, with normal bowel sounds. No distension or tympany. No guarding or rebound. No evidence of tenderness throughout. Back: No spinal tenderness. No costovertebral tenderness. Full range of motion. Male : Normal genitalia with no discharge or lesions. Skin: Warm, dry with normal turgor. Normal color with no rashes, no lesions, and no evidence of cellulitis. Neuro: Awake and alert, GCS 15, oriented to person, place, time, and situation. Cranial nerves II-XII grossly intact. Motor strength 5/5 in all extremities. Sensory grossly intact. Cerebellar exam normal. Normal gait. Psych: Awake, alert, with orientation to person, place and time. Behavior, mood, and affect are within normal limits. 23:59 Musculoskeletal/extremity: ROM: full active range of motion, full passive range of motion, Circulation is intact in all extremities. Sensation intact. Compartment Syndrome exam of affected extremity: is normal. Joints: All joints appear normal with full range of motion. DVT Exam: no swelling, negative Homans' sign noted on exam, no appreciated bluish discoloration, no erythema, no increased warmth, pain, tenderness. Vital Signs: 23:10 BP 185 / 86; Pulse 71; Resp 18; Temp 98.1(O); Pulse Ox 96% on R/A; Weight 86.18 kg (R); fc Height 5 ft. 8 in. (172.72 cm) (R); Pain 7/10; 23:10 Body Mass Index 28.89 (86.18 kg, 172.72 cm) Laceration: 02/25 00:04 Wound Repair of 8cm ( 3.1in ) subcutaneous laceration to left leg and left vogt. joselin Irregularly shaped.. Skin/tissue flap noted.. Distal neuro/vascular/tendon intact. Anesthesia: Local anesthetic administered with 10 mls of 1% lidocaine w/ Epi. Wound prep: Moderate cleansing by me, Wound explored, Copious irrigation. Skin closed with 8 4-0 Prolene using vertical mattress sutures and sterile technique. Dressed with Neosporin, pressure dressing, non-adherent dressing. Patient tolerated well. MDM: 02/24 23:33 Patient medically screened. [facility] 02/24 23:34 Order name: XRAY Tib Fib RIGHT ms Administered Medications: 02/25 00:14 Drug: Tetanus-Diphtheria Toxoid Adult 0.5 ml {Director Of Teacher Education: [employer] ([employer]). Exp: rv 05/19/2020. Lot #: [id number]. } Route: IM; Site: right deltoid; 00:15 Drug: Bactrim (160 mg-800 mg (DS) 1 tablet Route: PO; rv 00:15 Drug: Doxycycline 200 mg Route: PO; rv 00:20 Drug: Lidocaine-Epinephrine -1%: (1:100,000) 1 vials {Note: at bedside for provider.} rv Volume: 20 ml; Route: Infiltration; Disposition: 02/25/18 01:30 Discharged to Home. Impression: Laceration without foreign body, left lower leg, Fall due to bumping against object, Type 2 diabetes mellitus. - Condition is Stable. - Discharge Instructions: Type 2 Diabetes Mellitus, Adult, Laceration Care, Adult, Laceration Care, Adult, [id number], Type 2 Diabetes Mellitus, Adult, [id number]. - Prescriptions for Tylenol- Codeine #3 300-30 mg Oral Tablet - take 2 tablet by ORAL route every 6 hours As needed; 30 tablet. Doxycycline Hyclate 100 mg Oral Tablet - take 1 tablet by ORAL route every 12 hours; 20 tablet. Bactrim DS 800- 160 mg Oral Tablet - take 1 tablet by ORAL route every 12 hours for 10 days; 20 tablet. - Medication Reconciliation Form, Thank You Letter, Antibiotic Education, Prescription Opioid Use, Work release form, Family Work Release form. - Follow up: Maco Han; When: 5 - 6 days; Reason: Recheck today's complaints, Continuance of care, Re-evaluation by your physician. Follow up: Vincent Hodges; When: 2 - 3 days; Reason: Recheck today's complaints, Re-evaluation by your physician. - Problem is new. - Symptoms have improved. Signatures: Dispatcher [employer] Mark Ybarra MD MD cha Chretien, Felicia, RN RN Robert Zayas RN RN rv Corrections: (The following items were deleted from the chart) 01:41 01:30 02/25/2018 01:30 Discharged to Home. Impression: Laceration without foreign body, rv left lower leg; Fall due to bumping against object; Type 2 diabetes mellitus. Condition is Stable. Discharge Instructions: Laceration Care, Adult, Laceration Care, Adult, [id number], Type 2 Diabetes Mellitus, Adult, Type 2 Diabetes Mellitus, Adult, [id number]. Prescriptions for Tylenol-Codeine #3 300-30 mg Oral Tablet - take 2 tablet by ORAL route every 6 hours As needed; 30 tablet, Doxycycline Hyclate 100 mg Oral Tablet - take 1 tablet by ORAL route every 12 hours; 20 tablet, Bactrim DS 800-160 mg Oral Tablet - take 1 tablet by ORAL route every 12 hours for 10 days; 20 tablet. and Forms are Medication Reconciliation Form, Thank You Letter, Antibiotic Education, Prescription Opioid Use. Follow up: Maco Han; When: 5 - 6 days; Reason: Recheck today's complaints, Continuance of care, Re-evaluation by your physician. Follow up: Vincent Hodges; When: 2 - 3 days; Reason: Recheck today's complaints, Re-evaluation by your physician. Problem is new. Symptoms have improved. joselin
[2018-02-25 02:09] VITALS: BP 185/86; TEMP 98.1; O2SAT 96
--- NOTE | 2018-02-25 08:37 | RAD REPORT ---
EXAM DESCRIPTION: RAD - Tib Fib Right - 02/25/2018 12:02 am CLINICAL HISTORY: Laceration. COMPARISON: None. FINDINGS: Pretibial soft tissue laceration is noted. No underlying fracture or foreign body visualiz ed.
== END 2018-02-25 01:41 | disposition home or self-care (01) ==
LOC: ER 23:06
PROC: 0JQP0ZZ Repair Left Lower Leg Subcutaneous Tissue and Fascia, Open Approach (ICD-10-PCS; principal; 2018-02-25)
DX: S81.812A Laceration without foreign body, left lower leg, initial encounter (principal); W19.XXXA Unspecified fall, initial encounter; Y93.89 Activity, other specified; Y92.814 Boat as the place of occurrence of the external cause; Z23 Encounter for immunization; E11.9 Type 2 diabetes mellitus without complications; I10 Essential (primary) hypertension
CPT/HCPCS: 90714; 99283

== ENCOUNTER 2018-09-18 18:19 | Inpatient (IN) | payer OTHER ==
[2018-09-18] MEDS ORDERED: NA CHLORIDE 0.9% 1,000 ML ONE ×2 (19:12→19:30)
[2018-09-18] MEDS ORDERED: METHYLPREDNISOLONE 125 MG INJ ONE (19:12)
[2018-09-18] MEDS ORDERED: LEVALBUTEROL 1.25 MG/3 ML NEB ONE ×2 (19:12→19:14)
[2018-09-18 19:14] LABS: Absolute Lymphocytes (CBC) 0.7 K/uL (0.7-4.9); Absolute Monocytes 0.7 K/uL (0.1-1.3); Absolute Neutrophil 9.9 K/uL (1.8-8.0); Basophils % 0.1 % (0-1.3); Eosinophils % 0.8 % (0-4.4); Hematocrit 37.9 % (39.6-49.0); Lymphocytes % 6.4 % (15.3-44.8); MPV 8.5 fL (7.6-11.3); Monocytes % 6.2 % (3.3-12.3); RBC Red Blood Cell Count 4.06 M/uL (4.33-5.43)
[2018-09-18 19:17] LABS: Protime INR 1.06
[2018-09-18 19:31] LABS: ALT/SGPT 34 U/L (12-78); AST/SGOT 22 U/L (15-37); Albumin 3.3 g/dL (3.4-5.0); Alkaline Phosphatase 117 U/L (45-117); BUN Blood Urea Nitrogen 10 mg/dL (7-18); Bicarbonate 26 mmol/L (21-32); Bilirubin Direct 0.2 mg/dL (0-0.2); Bilirubin Total 0.9 mg/dL (0.2-1.0); Glucose Level 155 mg/dL (74-106); Potassium 3.4 mmol/L (3.5-5.1); Protein, Total 6.7 g/dL (6.4-8.2); Sodium Level 139 mmol/L (136-145); Troponin (Emerg Dept Use Only) < 0.02 ng/mL (0.0-0.045)
[2018-09-18 19:48] LABS: Platelet Estimate INCR; Urine White Blood Cell Casts OK
[2018-09-18 19:49] LABS: Blood Morphology Comment NOTED (NOT SEEN); Hypochromasia 1+
--- NOTE | 2018-09-18 19:59 | ER ---
Nurse's Notes [facility] Name: Victoriano Coronel Age: 68 yrs Sex: Male : 1950 Arrival Date: 09/18/2018 Time: 18:22 Bed 19 Private MD: Diagnosis: Pneumonia due to other specified bacteria;Acute respiratory failure with hypoxia Presentation: 09/18 18:23 Presenting complaint: Patient states: started feeling bad for a few days and now i am tw2 really short of breath, i have copd and i am having some chest pain, since the . Transition of care: patient was not received from another setting of care. Onset of symptoms was September 18, 2018. Risk Assessment: Do you want to hurt yourself or someone else? Patient reports no desire to harm self or others. Care prior to arrival: None. 18:23 Method Of Arrival: Wheelchair tw2 18:23 Acuity: JAVI 2 tw2 19:53 Initial Sepsis Screen: Does the patient meet any 2 criteria? HR > 90 bpm. Does the tl2 patient have a suspected source of infection? No. Patient's initial sepsis screen is negative. Triage Assessment: 18:22 General: Appears uncomfortable. Respiratory: Respiratory effort is labored, pursed lip, tw2 Respiratory pattern is tachypnea. Historical: - Allergies: 18:26 No Known Allergies; tw2 - Home Meds: 18:26 trazodone 100 mg Oral tab [Active]; Symbicort 160-4.5 mcg/actuation inhalation HFAA tw2 [Active]; metformin 500 mg Oral tab [Active]; donepezil 10 mg Oral tab 1 tab once daily [Active]; amlodipine 5 mg tab [Active]; atorvastatin 20 mg Oral tab [Active]; losartan 100 mg Oral tab [Active]; clondine 0.3mg [Active]; - PMHx: 18:26 Colitis; COPD; Diabetes - NIDDM; Diverticulitis; Hypertension; tw2 - PSHx: 18:26 None; tw2 - Immunization history:: Adult Immunizations. - Social history:: Smoking status: Patient/guardian denies using tobacco. - Ebola Screening: : Patient denies travel to an Ebola-affected area in the 21 days before illness onset. Screenin:26 Abuse screen: Denies threats or abuse. Nutritional screening: No deficits noted. la1 Tuberculosis screening: No symptoms or risk factors identified. Fall Risk None identified. Assessment: 18:25 General: Appears ill, Behavior is calm, cooperative. Pain: Complains of pain in pain la1 and nuscle aches all over. Neuro: Level of Consciousness is awake, alert, obeys commands, Oriented to person, place, time, situation. Cardiovascular: Heart tones S1 S2 present Capillary refill < 3 seconds Patient's skin is warm and dry. Respiratory: Reports shortness of breath cough that is Airway is patent Respiratory effort is even, unlabored, Respiratory pattern is regular, symmetrical, Breath sounds are coarse bilaterally. the patient has moderate shortness of breath. GI: No signs and/or symptoms were reported involving the gastrointestinal system. : No signs and/or symptoms were reported regarding the genitourinary system. 19:51 General: Appears in no apparent distress. uncomfortable, Behavior is calm, cooperative, tl2 appropriate for age. Pain: Complains of pain in muscle aches. Neuro: Level of Consciousness is awake, alert, obeys commands, Oriented to person, place, time, situation. Cardiovascular: Denies chest pain. Respiratory: Reports shortness of breath cough that is Airway is patent Respiratory effort is even, unlabored, Respiratory pattern is regular, symmetrical, Breath sounds are diminished bilaterally. in left posterior lower lobe and right posterior lower lobe the patient has moderate shortness of breath. GI: No signs and/or symptoms were reported involving the gastrointestinal system. Derm: Skin is pink, warm \T\ dry. 20:30 Reassessment: Patient appears in no apparent distress at this time. Patient and/or tl2 family updated on plan of care and expected duration. Pain level reassessed. Patient is alert, oriented x 3, equal unlabored respirations, skin warm/dry/pink. Patient states feeling better. 21:45 Reassessment: Patient appears in no apparent distress at this time. Patient and/or tl2 family updated on plan of care and expected duration. Pain level reassessed. Patient is alert, oriented x 3, equal unlabored respirations, skin warm/dry/pink. pt stable and ready for transport to floor. Vital Signs: 18:24 BP 140 / 68; Pulse 101; Resp 20; Temp 99.2(O); Pulse Ox 86% on R/A; Pain 0/10; tw2 19:48 BP 120 / 62; Pulse 107; Resp 19; Pulse Ox 98% on Nebulizer Mask; tl2 21:03 BP 137 / 78; Pulse 93; Resp 18; Pulse Ox 96% on 2 lpm NC; tl2 18:24 pt placed on 2L nc 91%, brought to room, JUNG Merrill notified, Iggy Bourgeois to perform ekg tw2 ED Course: 18:22 Patient arrived in ED. sb2 18:24 Triage completed. tw2 18:25 Garfield Barclay RN is Primary Nurse. la1 18:25 Arm band placed on. tw2 18:26 Bed in low position. Call light in reach. Side rails up X 1. la1 18:35 EKG done, by ED staff, reviewed by Felipe Harris MD. dh3 18:51 Initial lab(s) drawn, by me, held in ED. Inserted saline lock: 20 gauge in right wrist, dh3 using aseptic technique. Blood collected. 18:51 First set of blood cultures drawn by me. dh3 18:52 John Méndez PA is PHCP. jr8 18:52 Felipe Harris MD is Attending Physician. jr8 19:02 Initial lab(s) drawn, by me, sent to lab. dh3 19:11 Second set of blood cultures drawn by me, by venipuncture 23G to right ac. dh3 19:11 Lactate drawn by me and sent to lab. dh3 19:59 Chest Single View XRAY In Process Unspecified. EDMS 19:59 Parminder Jesus MD is Hospitalizing Provider. jr8 21:45 No provider procedures requiring assistance completed. Patient admitted, IV remains in tl2 place. 21:50 Attending Physician role handed off by Felipe Harris MD tl2 21:50 Primary Nurse role handed off by Garfield Barclay RN tl2 21:52 Poly Ayers RN is Primary Nurse. tl2 Administered Medications: 19:14 Drug: NS 0.9% 1000 ml Route: IV; Rate: 1000 ml; Site: right hand; tl2 20:30 Follow up: IV Status: Completed infusion; IV Intake: 1000ml tl2 19:14 Drug: Xopenex (3) 1.25 mg Route: Inhalation; tl2 19:14 Drug: SOLU-Medrol 125 mg Route: IVP; Site: right hand; tl2 21:47 Follow up: Response: No adverse reaction tl2 20:11 Drug: NS 0.9% 1000 ml Route: IV; Rate: 1 bolus; Site: right hand; tl2 21:47 Follow up: IV Status: Completed infusion; IV Intake: 1000ml tl2 20:17 Drug: LevaQUIN 750 mg Volume: 150 ml; Route: IVPB; Infused Over: 90 mins; Site: right tl2 hand; 21:46 Follow up: IV Status: Infusion continued upon admission tl2 21:00 Drug: fentaNYL (PF) 50 mcg Route: IVP; Site: right hand; tl2 21:30 Follow up: Response: No adverse reaction; Pain is decreased tl2 Intake: 20:30 IV: 1000ml; Total: 1000ml. tl2 21:47 IV: 1000ml; Total: 2000ml. tl2 Outcome: 19:59 Decision to Hospitalize by Provider. jr8 21:45 Admitted to Tele accompanied by tech, family with patient, via wheelchair, room 426, tl2 with oxygen, with chart, Report called to Akash Conley RN 21:45 Condition: stable 21:45 Discharge instructions given to patient, Instructed on the need for admit. 21:47 Patient left the ED. tl2 21:52 Patient left the ED. tl2 Signatures: Dispatcher [employer] EDMS John Méndez PA PA [id number] Garfield Barclay RN RN james1 Marlen Burnett RN RN tw2 Poly Ayers RN RN tl2 Christelle Aguiar Sheri sb2
--- NOTE | 2018-09-18 20:00 | EDPHYS ---
Physician Documentation [facility] Name: Victoriano Coronel Age: 68 yrs Sex: Male : 1950 Arrival Date: 09/18/2018 Time: 18:22 Bed 19 Private MD: ED Physician HPI: 09/18 19:50 This 68 yrs old Male presents to ER via Wheelchair with complaints of jr8 shortness of breath. 19:50 The patient has shortness of breath at rest. Onset: The symptoms/episode began/occurred jr8 gradually, 2 week(s) ago, and became worse and became persistent. Duration: The symptoms are continuous. The patient's shortness of breath is aggravated by coughing, walking. Associated signs and symptoms: Pertinent positives: productive cough, fever. Severity of symptoms: At their worst the symptoms were moderate in the emergency department the symptoms are unchanged. The patient has not experienced similar symptoms in the past. The patient has not recently seen a physician. Historical: - Allergies: 18:26 No Known Allergies; tw2 - Home Meds: 18:26 trazodone 100 mg Oral tab [Active]; Symbicort 160-4.5 mcg/actuation inhalation HFAA tw2 [Active]; metformin 500 mg Oral tab [Active]; donepezil 10 mg Oral tab 1 tab once daily [Active]; amlodipine 5 mg tab [Active]; atorvastatin 20 mg Oral tab [Active]; losartan 100 mg Oral tab [Active]; clondine 0.3mg [Active]; - PMHx: 18:26 Colitis; COPD; Diabetes - NIDDM; Diverticulitis; Hypertension; tw2 - PSHx: 18:26 None; tw2 - Immunization history:: Adult Immunizations. - Social history:: Smoking status: Patient/guardian denies using tobacco. - Ebola Screening: : Patient denies travel to an Ebola-affected area in the 21 days before illness onset. ROS: 19:50 Eyes: Negative for injury, pain, redness, and discharge, ENT: Negative for injury, jr8 pain, and discharge, Neck: Negative for injury, pain, and swelling, Cardiovascular: Negative for chest pain, palpitations, and edema, Abdomen/GI: Negative for abdominal pain, nausea, vomiting, diarrhea, and constipation, Back: Negative for injury and pain, MS/Extremity: Negative for injury and deformity, Skin: Negative for injury, rash, and discoloration, Neuro: Negative for headache, weakness, numbness, tingling, and seizure. 19:50 Respiratory: Positive for cough, dyspnea on exertion, shortness of breath, wheezing. 19:50 Constitutional: Positive for body aches, chills, fever. jr8 Exam: 19:50 Eyes: Pupils equal round and reactive to light, extra-ocular motions intact. Lids and jr8 lashes normal. Conjunctiva and sclera are non-icteric and not injected. Cornea within normal limits. Periorbital areas with no swelling, redness, or edema. ENT: Nares patent. No nasal discharge, no septal abnormalities noted. Tympanic membranes are normal and external auditory canals are clear. Oropharynx with no redness, swelling, or masses, exudates, or evidence of obstruction, uvula midline. Mucous membranes moist. Neck: Trachea midline, no thyromegaly or masses palpated, and no cervical lymphadenopathy. Supple, full range of motion without nuchal rigidity, or vertebral point tenderness. No Meningismus. Abdomen/GI: Soft, non-tender, with normal bowel sounds. No distension or tympany. No guarding or rebound. No evidence of tenderness throughout. Back: No spinal tenderness. No costovertebral tenderness. Full range of motion. Skin: Warm, dry with normal turgor. Normal color with no rashes, no lesions, and no evidence of cellulitis. MS/ Extremity: Pulses equal, no cyanosis. Neurovascular intact. Full, normal range of motion. Neuro: Awake and alert, GCS 15, oriented to person, place, time, and situation. Cranial nerves II-XII grossly intact. Motor strength 5/5 in all extremities. Sensory grossly intact. Cerebellar exam normal. Normal gait. 19:50 Cardiovascular: Rate: tachycardic, Rhythm: regular, Pulses: Pulses are 2+ in right radial artery and left radial artery. Heart sounds: normal, normal S1and S2, no S3 or S4, no murmur, no rub, no gallop, Edema: is not appreciated. 19:50 Respiratory: mild respiratory distress is noted, Respirations: labored breathing, tachypnea, Breath sounds: decreased breath sounds, that are mild, are located in both bases, wheezing: expiratory that is mild, is heard diffusely. Vital Signs: 18:24 BP 140 / 68; Pulse 101; Resp 20; Temp 99.2(O); Pulse Ox 86% on R/A; Pain 0/10; tw2 19:48 BP 120 / 62; Pulse 107; Resp 19; Pulse Ox 98% on Nebulizer Mask; tl2 21:03 BP 137 / 78; Pulse 93; Resp 18; Pulse Ox 96% on 2 lpm NC; tl2 18:24 pt placed on 2L nc 91%, brought to room, JUNG Merrill notified, Iggy Bourgeois to perform ekg tw2 MDM: 18:53 Patient medically screened. jr8 19:50 Data reviewed: vital signs, nurses notes, lab test result(s), EKG, radiologic studies, jr8 plain films. Data interpreted: Pulse oximetry: on room air is 86 %. Interpretation: hypoxia. Counseling: I had a detailed discussion with the patient and/or guardian regarding: the historical points, exam findings, and any diagnostic results supporting the discharge/admit diagnosis, lab results, radiology results, the need for further work-up and treatment in the hospital. Physician consultation: Parminder Jesus MD was called at 19:57, was contacted at 19:57, regarding admission, to the telemetry unit. consult, patient's condition, and will see patient. 09/18 18:52 Order name: Basic Metabolic Panel; Complete Time: 19:47 [facility] 09/18 18:52 Order name: Blood Culture Adult (2) [facility] 09/18 18:52 Order name: CBC with Diff; Complete Time: 19:50 [facility] 09/18 18:52 Order name: Lactate; Complete Time: 19:47 [facility] 09/18 18:52 Order name: LFT's; Complete Time: 19:47 [facility] 09/18 18:52 Order name: Procalcitonin; Complete Time: 19:59 [facility] 09/18 18:52 Order name: Protime (+inr); Complete Time: 19:47 [facility] 09/18 18:52 Order name: Ptt, Activated; Complete Time: 19:47 [facility] 09/18 18:52 Order name: Troponin (emerg Dept Use Only); Complete Time: 19:47 [facility] 09/18 18:52 Order name: Chest Single View XRAY; Complete Time: 20:27 [facility] 09/18 18:52 Order name: Influenza Screen (a \T\ B); Complete Time: 19:47 09/18 19:17 Order name: CBC Smear Scan; Complete Time: 19:50 EDMS 09/18 18:52 Order name: Accucheck; Complete Time: 19:13 09/18 18:52 Order name: Cardiac monitoring; Complete Time: 19:01 09/18 18:52 Order name: EKG - Nurse/Tech; Complete Time: 18:55 09/18 18:52 Order name: IV Saline Lock - Large Bore; Complete Time: 19:09/18 18:52 Order name: Labs collected and sent; Complete Time: 19:09/18 18:52 Order name: O2 Per Protocol; Complete Time: 19:09/18 18:52 Order name: O2 Sat Monitoring; Complete Time: 19: Administered Medications: 19:14 Drug: NS 0.9% 1000 ml Route: IV; Rate: 1000 ml; Site: right hand; tl2 20:30 Follow up: IV Status: Completed infusion; IV Intake: 1000ml tl2 19:14 Drug: Xopenex (3) 1.25 mg Route: Inhalation; tl2 19:14 Drug: SOLU-Medrol 125 mg Route: IVP; Site: right hand; tl2 21:47 Follow up: Response: No adverse reaction tl2 20:11 Drug: NS 0.9% 1000 ml Route: IV; Rate: 1 bolus; Site: right hand; tl2 21:47 Follow up: IV Status: Completed infusion; IV Intake: 1000ml tl2 20:17 Drug: LevaQUIN 750 mg Volume: 150 ml; Route: IVPB; Infused Over: 90 mins; Site: right tl2 hand; 21:46 Follow up: IV Status: Infusion continued upon admission tl2 21:00 Drug: fentaNYL (PF) 50 mcg Route: IVP; Site: right hand; tl2 21:30 Follow up: Response: No adverse reaction; Pain is decreased tl2 Disposition: 09/19 09:56 Co-signature as Attending Physician, Felipe Harris MD. rn Disposition: 09/18/18 19:59 Hospitalization ordered by Parminder Jesus for Inpatient Admission. Preliminary diagnosis are Pneumonia due to other specified bacteria, Acute respiratory failure with hypoxia. - Bed requested for Telemetry/MedSurg (Inpatient). - Status is Inpatient Admission. tl2 - Condition is Stable. - Problem is new. - Symptoms have improved. UTI on Admission? No Signatures: Dispatcher [employer] EDMS Felipe Harris MD MD rn Roszak, Josh, PA PA jr8 Marlen Burnett RN RN tw2 Poly Ayers RN RN tl2 Corrections: (The following items were deleted from the chart) 09/18 19:55 19:50 Eyes: Negative for injury, pain, redness, and discharge, ENT: Negative for jr8 injury, pain, and discharge, Neck: Negative for injury, pain, and swelling, Cardiovascular: Negative for chest pain, palpitations, and edema, Abdomen/GI: Negative for abdominal pain, nausea, vomiting, diarrhea, and constipation, Back: Negative for injury and pain, MS/Extremity: Negative for injury and deformity, Skin: Negative for injury, rash, and discoloration, Neuro: Negative for headache, weakness, numbness, tingling, and seizure, jr8 19:59 19:59 Hospitalization Ordered by Parminder Jesus MD for Inpatient Admission. Preliminary jr8 diagnosis is Pneumonia due to other specified bacteria. Bed requested for Telemetry/MedSurg (Inpatient). Status is Inpatient Admission. Condition is Stable. Problem is new. Symptoms have improved. UTI on Admission? No. jr8 20:45 19:59 09/18/2018 19:59 Hospitalization Ordered by Parminder Jesus MD for Inpatient jr8 Admission. Preliminary diagnosis is Pneumonia due to other specified bacteria; Acute respiratory failure with hypoxia. Bed requested for Telemetry/MedSurg (Inpatient). Status is Inpatient Admission. Condition is Stable. Problem is new. Symptoms have improved. UTI on Admission? No. jr8 21:47 20:45 09/18/2018 19:59 Hospitalization Ordered by Parminder Jesus MD for Inpatient tl2 Admission. Preliminary diagnosis is Pneumonia due to other specified bacteria; Acute respiratory failure with hypoxia. Bed requested for Telemetry/MedSurg (Inpatient). Status is Inpatient Admission. Condition is Stable. Problem is new. Symptoms have improved. UTI on Admission? No. jr8 21:52 21:47 09/18/2018 19:59 Hospitalization Ordered by Parminder Jesus MD for Inpatient tl2 Admission. Preliminary diagnosis is Pneumonia due to other specified bacteria; Acute respiratory failure with hypoxia. Bed requested for Telemetry/MedSurg (Inpatient). Status is Inpatient Admission. Condition is Stable. Problem is new. Symptoms have improved. UTI on Admission? No. tl2
[2018-09-18] MEDS ORDERED: Levofloxacin 750mg IV 750 MG/150 ML BAG IV ONE (20:22)
--- NOTE | 2018-09-18 20:24 | RAD REPORT ---
EXAM DESCRIPTION: RAD - Chest Single View - 09/18/2018 7:58 pm CLINICAL HISTORY: DYSPNEA Chest pain. COMPARISON: Chest Single View dated 02/14/2018; Chest Pa And Lat (2 Views) dated 11/15/2017; CHEST SIN GLE VIEW dated 07/03/2015; CHEST SINGLE VIEW dated 07/01/2015 FINDINGS: Portable technique limits examination quality. The lungs are emphysematous but grossly clear. The heart is normal in size. No displaced fractures. IMPRESSION: COPD.
[2018-09-18] MEDS ORDERED: FENTANYL CITR 100 MCG/2 ML ONE (20:30)
--- NOTE | 2018-09-18 21:05 | P.HP ---
Certification for Inpatient Patient admitted to: Inpatient With expected LOS: >2 Midnights Practitioner: I am a practitioner with admitting privileges, knowledge of patient current condition, hospital course, and medical plan of care. Services: Services provided to patient in accordance with Admission requirements found in Title 42 Section 412.3 of the Code of Federal Regulations Patient History Date of Service: 09/18/18 Reason for admission: COPD exacerbation History of Present Illness: Mr Coronel is a 68 years old male with history of DM II, HTN, COPD, who start about 2 weeks ago with progressive SOB, associated with productive cough with greenish and yellowish secretions. Over the time his symptoms got worse, today he had fever 100.2F, and significant weakness. Lab work shows leukocytosis 11.4K , but normal lactate and procalcitonin. CXR possible infiltrate on right base, awaiting radiology report. O2 sat 96% on RA. Allergies No Known Allergies Allergy (Verified 02/15/18 00:34) Home medications list reviewed: Yes Home Medications: Amlodipine [Norvasc*] 5 mg PO DAILY 02/15/18 Atorvastatin Calcium [Lipitor] 20 mg PO BEDTIME 02/15/18 Donepezil HCl 10 mg PO DAILY 02/15/18 Losartan Potassium [Cozaar] 100 mg PO DAILY 02/15/18 Metformin ER [Glucophage ER] 500 mg PO DAILY 02/15/18 Trazodone HCl 100 mg PO DAILY 02/15/18 cloNIDine HCl [Catapres*] 0.3 mg PO BID 02/15/18 - Past Medical/Surgical History Diabetic: Yes -: HTN -: COPD -: cellulitis both legs Past Surgical History: Reviewed- Non-Contributory - Family History Father -: Hypertension, Diabetes - Social History Smoking Status: Former smoker Alcohol use: Yes CD- Drugs: No Caffeine use: Yes Place of Residence: Home Review of Systems 10-point ROS is otherwise unremarkable Physical Examination - Physical Exam General: Alert, In no apparent distress HEENT: Atraumatic, PERRLA, Mucous membr. moist/pink, EOMI, Sclerae nonicteric Neck: Supple, 2+ carotid pulse no bruit, No LAD, Without JVD or thyroid abnormality Respiratory: Normal air movement, Crackles/rales (right base creackles) Cardiovascular: Regular rate/rhythm, Normal S1 S2 Gastrointestinal: Normal bowel sounds, No tenderness Musculoskeletal: No tenderness Integumentary: No rashes Neurological: Normal speech, Normal strength at 5/5 x4 extr, Normal tone, Normal affect Lymphatics: No axilla or inguinal lymphadenopathy - Studies Laboratory Data (last 24 hrs) 09/18/18 18:51: PT 12.5, INR 1.06, APTT 30.2 09/18/18 18:51: WBC 11.4 H, Hgb 12.6 L, Hct 37.9 L, Plt Count 258 09/18/18 18:51: Sodium 139, Potassium 3.4 L, BUN 10, Creatinine 0.94, Glucose 155 H, Total Bilirubin 0.9, AST 22, ALT 34, Alkaline Phosphatase 117 Microbiology Data (last 24 hrs): 09/18/18 18:58 Nasopharnyx Influenza Type A Antigen Screen - Final 09/18/18 18:58 Nasopharnyx Influenza Type B Antigen Screen - Final Assessment and Plan - Problems (Diagnosis) (1) COPD exacerbation Current Visit: Yes Status: Acute (2) Pneumonia Current Visit: Yes Status: Acute Qualifiers: Pneumonia type: due to unspecified organism Laterality: right Lung location: lower lobe of lung Qualified Code(s): J18.1 - Lobar pneumonia, unspecified organism (3) HTN (hypertension) Current Visit: Yes Status: Acute Qualifiers: Hypertension type: essential hypertension Qualified Code(s): I10 - Essential (primary) hypertension (4) Diabetes mellitus Current Visit: Yes Status: Acute Qualifiers: Diabetes mellitus type: type 2 Diabetes mellitus mcc insulin use: without mcc use Diabetes mellitus complication status: with unspecified complications Qualified Code(s): E11.8 - Type 2 diabetes mellitus with unspecified complications - Plan The patient will be admitted to the hospital due to COPD exacerbation, leukocyutosis with normal lactate and procalcitonin, however, CXR and clinical signs consistent with pneumonia. Will cover with IV levaquin, start IV steroids and breathing treatments. Blood cultures and sputum culture in process. Continue SSI for BS control, Check HgbA1c. - Advance Directives Does patient have a Living Will: No Does patient have a Durable POA for Healthcare: No - Code Status/Comfort Care Code Status Assessed: Yes Code Status: Full Code
[2018-09-18] MEDS ORDERED: ACETAMINOPHEN 500 MG TAB PO PRN (21:39)
[2018-09-18] MEDS: INSULIN -REGULAR HUMAN 50 UNIT/0.5 ML ML SQ SCH (21:39)
[2018-09-18] MEDS ORDERED: ONDANSETRON 4 MG/2 ML VIAL IV PRN (21:39)
[2018-09-18 21:56] VITALS: BMI 28.3
[2018-09-18] MEDS: NA CHLORIDE 0.9% 1,000 ML IV SCH (22:23)
[2018-09-18] MEDS: IPRATROPIUM BROM 0.5MG/2.5ML NEB PRN (22:39)
[2018-09-18] MEDS: ALBUTEROL 2.5 MG/3 ML NEB SOL NEB PRN (22:39)
[2018-09-18] MEDS ORDERED: TRAMADOL HCL 50 MG TAB PO PRN (23:01)
[2018-09-19] MEDS: METHYLPREDNISOLONE 40 MG INJ IV SCH ×3 (01:00→20:37)
[2018-09-19] MEDS ORDERED: ALPRAZOLAM 0.25 MG TABLET PO ONE (01:39)
[2018-09-19 04:31] LABS: Potassium 3.7 mmol/L (3.5-5.1)
[2018-09-19 04:41] LABS: Absolute Lymphocytes (CBC) 0.6 K/uL (0.7-4.9); Absolute Monocytes 0.1 K/uL (0.1-1.3); Absolute Neutrophil 10.9 K/uL (1.8-8.0); Basophils % 0.1 % (0-1.3); Eosinophils % 0.1 % (0-4.4); Hematocrit 36.1 % (39.6-49.0); Lymphocytes % 4.8 % (15.3-44.8); MPV 9.1 fL (7.6-11.3); Monocytes % 0.7 % (3.3-12.3)
[2018-09-19] MEDS ORDERED: POTASSIUM 25 MEQ EFFERV TAB PO ONE (04:42)
[2018-09-19] MEDS: NA CHLORIDE 0.9% 1,000 ML IV SCH (07:39)
[2018-09-19] MEDS: ENOXAPARIN 40 MG/0.4 ML SQ SCH (08:32)
[2018-09-19] MEDS: INSULIN -REGULAR HUMAN 50 UNIT/0.5 ML ML SQ SCH ×4 (08:32→21:24)
[2018-09-19] MEDS: ALBUTEROL 2.5 MG/3 ML NEB SOL NEB PRN ×3 (09:21→23:46)
[2018-09-19] MEDS: IPRATROPIUM BROM 0.5MG/2.5ML NEB PRN ×3 (09:21→23:46)
[2018-09-19] MEDS: ARFORMOTEROL TARTRATE 15 MCG/2 ML VIAL.NEB NEB SCH ×2 (10:35→20:00)
--- NOTE | 2018-09-19 10:37 | P.CNS ---
Date of Consult: 09/19/18 Reason for Consult: COPD exacerbation Chief Complaint: COPD exacerbation History of Present Illness: Patient is 68 years of age with a history of COPD has been feeling bad on off complaining of worsening dyspnea and that was intermittent not became persistent pain complaining of productive cough for the pasta few days quit smoking 20 years ago patient uses Symbicort twice a day and is compliant eyes any fever chills sputum or hemoptysis feeling somewhat better with the use of nebulizers which is making him cough Allergies No Known Allergies Allergy (Verified 02/15/18 00:34) Home Medications: Aspirin [Low Dose Aspirin EC] 81 mg PO BEDTIME 09/19/18 Atorvastatin Calcium [Lipitor] 20 mg PO BEDTIME 09/19/18 Budesonide/Formoterol Fumarate [Symbicort 160-4.5 Mcg Inhaler] 2 puff IH BID Donepezil HCl [Aricept] 10 mg PO BEDTIME 09/19/18 Escitalopram [Lexapro] 10 mg PO DAILY 09/19/18 Furosemide [Lasix] 40 mg PO DAILY 09/19/18 Hydralazine HCl 50 mg PO TID 09/19/18 Losartan Potassium [Cozaar] 100 mg PO DAILY 09/19/18 Metformin HCl [Glucophage] 500 mg PO BIDWM 09/19/18 Omeprazole [Prilosec] 40 mg PO DAILY 09/19/18 Potassium Oral Tab [Klor-Con 10 mEq Tab] 10 meq PO DAILY 09/19/18 cloNIDine HCl [Catapres] 0.3 mg PO TID 09/19/18 - Past Medical/Surgical History Diabetic: Yes -: HTN -: COPD -: cellulitis both legs -: dm -: high cholesterol - Family History Father Medical History: Hypertension, Diabetes Mother Medical History: Hypertension, Diabetes - Social History Smoking Status: Current every day smoker Alcohol use: Yes CD- Drugs: Yes Caffeine use: Yes Place of Residence: Home Review of Systems 10-point ROS is otherwise unremarkable General: Weakness Respiratory: Cough, Shortness of Breath Physical Examination Temp Pulse Resp BP Pulse Ox 98.2 F 85 18 178/79 H 95 09/19/18 08:00 09/19/18 08:00 09/19/18 08:00 09/19/18 08:00 09/19/18 08:00 General: Alert, In no apparent distress, Oriented x3 Neck: Supple Respiratory: Clear to auscultation bilaterally Cardiovascular: No edema, Regular rate/rhythm Gastrointestinal: Normal bowel sounds, Soft and benign Laboratory Data (last 24 hrs) 09/18/18 18:51: PT 12.5, INR 1.06, APTT 30.2 09/18/18 18:51: WBC 11.4 H, Hgb 12.6 L, Hct 37.9 L, Plt Count 258 09/18/18 18:51: Sodium 139, Potassium 3.4 L, BUN 10, Creatinine 0.94, Glucose 155 H, Total Bilirubin 0.9, AST 22, ALT 34, Alkaline Phosphatase 117 - Problems (1) COPD exacerbation Current Visit: Yes Status: Acute Plan: Patient is 68 years of age with a history of COPD admitted with an exacerbation chest x-ray shows chronic interstitial lung disease consistent with COPD there is no evidence of infection labs all unremarkable change to p.o. antibiotics steroids continue with Symbicort discharge a.m. on levofloxacin and prednisone 10 b.i.d. for 7 days follow up with me in 2 weeks vital signs are blood pressure is little elevated saturation satisfactory I have added Mariela
--- NOTE | 2018-09-19 11:59 | EKG ---
Test Date: 2018-09-18 Test Time: 18:25:17 Chemist: CECILE MEASUREMENT RESULTS: Intervals: Rate: 92 RI: 168 QRSD: 90 QT: 328 QTc: 405 Magazine: P: 81 RI: 168 QRS: 68 T: 107 INTERPRETIVE STATEMENTS: Sinus rhythm with occasional premature ventricular complexes T wave abnormality, non specific Abnormal ECG Compared to ECG 02/14/2018 20:01:41 Ventricular premature complex(es) now present T-wave abnormality now present Electronically Signed On 09-19-18 11:58:27 IT COMMUNICATIONS MANAGER by Jeremy Cruz
[2018-09-19] MEDS: CLONIDINE HCL 0.3 MG TAB PO SCH ×2 (12:47→20:33)
[2018-09-19] MEDS: HYDRALAZINE HCL 25 MG TABLET PO SCH ×2 (12:47→20:34)
--- NOTE | 2018-09-19 16:55 | PN ---
Subjective: The patient is seen and examined. Chart reviewed and case discussed with RN. The patie nt still complaining of some cough and shortness of breath. Medications: List reviewed. Physical Examination: Vital Signs: Temperature 98.2, heart rate 85, blood pressure 178/79, respirations 18, O2 95% on 2 L via nasal cannula. General: Awake, alert, oriented x3. Some mild respiratory distress. Elderly male, slightly ill-corin earing. CV: S1, S2. Regular rate and rhythm. Peripheral pulses present. No murmurs. Respiratory: Diminished breath sounds. Wheezing heard throughout. Gastrointestinal: Abdomen is soft, nontender, nondistended. Positive bowel sounds. Extremities: No clubbing, cyanosis, or edema. Neuro: Cranial nerves 2 through 12 intact grossly. No focal neurological deficit. Speech is normal . Skin: No rashes. Normal skin turgor. Laboratory Data: Sodium 140, potassium 3.7, chloride 106, CO2 24, BUN 10, creatinine 1.01, glucose 2 02, calcium 8.9. WBC 11.6, H and H 12.3 and 36.1, platelets 225, neutrophils 94%. Blood cultures pe nding. Influenza screen negative. Chest x-ray personally reviewed shows lungs clear, however, emphy sematous. Heart normal size. No displaced fractures. Assessment And Plan: A 68-year-old male with: 1.Acute COPD exacerbation. 2.Right lower lobe pneumonia. 3.Essential hypertension. 4.Diabetes mellitus type 2 without long-term use of insulin with hyperglycemia. Continue with slidi ng scale insulin and Accu-Chek. 5.Gastrointestinal and deep venous thrombosis prophylaxis addressed. Plan: Appreciate Dr. Bennett's input. Continue breathing treatments and steroids. The patient's the orthopedic specialty hospital physician is Dr. Han, who will be back in town on September 21, 2018. We will transfer service at that time. /MARJORIE Voice ID: [id number] Report ID: [id number]
[2018-09-19] MEDS ORDERED: Levofloxacin 750mg IV 750 MG/150 ML BAG IV SCH (20:00)
[2018-09-19] MEDS ORDERED: ASPIRIN EC 81 MG TAB PO SCH (21:00)
[2018-09-19] MEDS ORDERED: HOME MED 1 EA UNK (Budesonide/Formoterol Fumarate [Symbicort 160-4.5 Mcg Inhaler] 2 PUFF) IH SCH (21:00)
[2018-09-19] MEDS ORDERED: ATORVASTATIN 20 MG TAB PO SCH (21:00)
[2018-09-19] MEDS ORDERED: DONEPEZIL HCL 5 MG TAB PO SCH (21:00)
[2018-09-20 04:12] LABS: Absolute Lymphocytes (CBC) 0.9 K/uL (0.7-4.9); Absolute Monocytes 0.5 K/uL (0.1-1.3); Basophils % 0.1 % (0-1.3); Hematocrit 34.4 % (39.6-49.0); Lymphocytes % 5.9 % (15.3-44.8); MPV 8.7 fL (7.6-11.3); Monocytes % 3.8 % (3.3-12.3); RBC Red Blood Cell Count 3.67 M/uL (4.33-5.43)
[2018-09-20 04:22] LABS: Potassium 3.4 mmol/L (3.5-5.1)
[2018-09-20 05:05] LABS: Blood Morphology Comment NOT SEEN (NOT SEEN); Platelet Estimate ADEQ; Urine White Blood Cell Casts OK
[2018-09-20] MEDS ORDERED: POTASSIUM CL SA 10 MEQ TAB PO ONE (06:00)
[2018-09-20] MEDS ORDERED: PANTOPRAZOLE 40MG TABLET PO SCH (06:30)
[2018-09-20] MEDS: ARFORMOTEROL TARTRATE 15 MCG/2 ML VIAL.NEB NEB SCH (07:37)
[2018-09-20] MEDS ORDERED: LOSARTAN POTASSIUM 50 MG TABLET PO SCH (09:00)
[2018-09-20] MEDS ORDERED: FUROSEMIDE 40 MG TABLET PO SCH (09:00)
[2018-09-20] MEDS ORDERED: ESCITALOPRAM 20 MG TAB PO SCH (09:00)
[2018-09-20] MEDS ORDERED: POTASSIUM CL SA 10 MEQ TAB PO SCH (09:00)
[2018-09-20] MEDS: INSULIN -REGULAR HUMAN 50 UNIT/0.5 ML ML SQ SCH ×2 (09:08→11:30)
[2018-09-20] MEDS: CLONIDINE HCL 0.3 MG TAB PO SCH (09:09)
[2018-09-20] MEDS: HYDRALAZINE HCL 25 MG TABLET PO SCH (09:09)
[2018-09-20] MEDS: ENOXAPARIN 40 MG/0.4 ML SQ SCH (09:10)
[2018-09-20] MEDS: METHYLPREDNISOLONE 40 MG INJ IV SCH (09:10)
[2018-09-20 10:28] VITALS: O2SAT 98
--- NOTE | 2018-09-20 11:02 | P.DS ---
Admission Date: 09/18/18 Discharge Date: 09/20/18 Primary Care Provider: Dr. Han Disposition: ROUTINE DISCHARGE Discharge Condition: GOOD Reason for Admission: COPD exacerbation Consultations: Pulmonology, Dr. Bennett Brief History of Present Illness: Please see history and physical on on admission Hospital Course: Patient was admitted for acute COPD exacerbation along with right lower lobe pneumonia. Breathing treatments, IV steroids and antibiotics were started. Pulmonology was consulted. Patient clinically improved, along with his numbers. He did have a slight jump and white blood cell count prior to discharge this was likely secondary to steroid use. Clinically, he is afebrile for 24 hr, in the head with breathing off of oxygen. He did well off of the oxygen. His cough had improved, he was wanting to go home. Patient's primary care physician is Dr. Han. At the time of discharge, patient was alert oriented x3, hemodynamically stable, symptoms of drastically improved. He was discharged home on oral steroids, oral antibiotics, program in a prescription. He was also instructed to follow up with his primary care physician in 3-5 days and to follow up with Dr. Bennett in 2 weeks. He remained otherwise stable throughout the stay. Vital Signs/Physical Exam: Temp Pulse Resp BP Pulse Ox 97.3 F 62 16 144/69 H 98 09/20/18 04:00 09/20/18 09:10 09/20/18 04:00 09/20/18 09:10 09/20/18 04:00 General: Alert, In no apparent distress, Oriented x3 HEENT: Atraumatic, PERRLA, EOMI Neck: Supple, JVD not distended Respiratory: Clear to auscultation bilaterally, Normal air movement Cardiovascular: Regular rate/rhythm, Normal S1 S2 Gastrointestinal: Normal bowel sounds, No tenderness Musculoskeletal: No tenderness Integumentary: No rashes Neurological: Normal speech, Normal tone, Normal affect Lymphatics: No axilla or inguinal lymphadenopathy Laboratory Data at Discharge: WBC 14.5 K/uL (4.3-10.9) H D 09/20/18 03:42 Hgb 11.5 g/dL (13.6-17.9) L 09/20/18 03:42 Hct 34.4 % (39.6-49.0) L 09/20/18 03:42 Plt Count 259 K/uL (152-406) 09/20/18 03:42 PT 12.5 SECONDS (9.5-12.5) 09/18/18 18:51 INR 1.06 09/18/18 18:51 APTT 30.2 SECONDS (24.3-36.9) 09/18/18 18:51 Sodium 140 mmol/L (136-145) 09/20/18 03:42 Potassium 3.4 mmol/L (3.5-5.1) L 09/20/18 03:42 BUN 16 mg/dL (7-18) 09/20/18 03:42 Creatinine 1.06 mg/dL (0.55-1.3) 09/20/18 03:42 Glucose 217 mg/dL (74-106) H 09/20/18 03:42 Total Bilirubin 0.9 mg/dL (0.2-1.0) 09/18/18 18:51 AST 22 U/L (15-37) 09/18/18 18:51 ALT 34 U/L (12-78) 09/18/18 18:51 Alkaline Phosphatase 117 U/L (45-117) 09/18/18 18:51 Home Medications: Aspirin [Low Dose Aspirin EC] 81 mg PO BEDTIME 09/19/18 Atorvastatin Calcium [Lipitor*] 20 mg PO BEDTIME 09/19/18 Budesonide/Formoterol Fumarate [Symbicort 160-4.5 Mcg Inhaler] 2 puff IH BID Donepezil HCl [Aricept] 10 mg PO BEDTIME 09/19/18 Escitalopram [Lexapro*] 10 mg PO DAILY 09/19/18 Furosemide [Lasix*] 40 mg PO DAILY 09/19/18 Hydralazine HCl 50 mg PO TID 09/19/18 Losartan Potassium [Cozaar] 100 mg PO DAILY 09/19/18 Metformin HCl [Glucophage*] 500 mg PO BIDWM 09/19/18 Omeprazole [Prilosec] 40 mg PO DAILY 09/19/18 Potassium Oral Tab [Klor-Con 10 mEq Tab*] 10 meq PO DAILY 09/19/18 cloNIDine HCl [Catapres*] 0.3 mg PO TID 09/19/18 Arformoterol Tartrate [Brovana] 15 mcg NEB BIDRESP #2 vial.neb 09/20/18 levoFLOXacin [Levaquin] 500 mg PO DAILY #6 tab 09/20/18 predniSONE [Deltasone*] 10 mg PO BID #14 tab 09/20/18 New Medications: Arformoterol Tartrate [Brovana] 15 mcg NEB BIDRESP #2 vial.neb levoFLOXacin [Levaquin] 500 mg PO DAILY #6 tab predniSONE [Deltasone*] 10 mg PO BID #14 tab Patient Discharge Instructions: 1. Follow up with the primary care physician, Dr. Han in 1 week. 2. Chronic obstructive pulmonary disease exacerbation: You were seen by the labor operator, Dr. Bennett. A new inhaled medication, Brovana, was added on. You were also given IV steroids in the hospital, and will be discharged with oral steroids for 10 days. Prescription for these medications have been sent to pharmacy. Please follow up with Dr. Bennett in 2 weeks. 3. Right lower lobe pneumonia: He were started on IV antibiotics, Levaquin in the hospital. He will be discharged with oral Levaquin to complete a 7 day course. Prescription for this has been sent to your pharmacy. Please return to the emergency room for worsening symptoms. Diet: ADA Activity: Ad linda Followup: Laz Bennett MD [ACTIVE - CAN ADMIT] - 1-2 Weeks Massimo Han MD [Primary Care Provider] - 2-3 Days Physician Review: Patient Assessed, Agree with Above Assessment and Plan Time spent managing pt's care (in minutes): 55
[2018-09-20 14:29] VITALS: BP 164/79; TEMP 98.2
== END 2018-09-20 13:22 | disposition home or self-care (01) | DRG 190 ==
LOC: ER 18:19 → ERHOLD 19:59 → 4TH 21:16
PROVIDERS: ADMIT Internal Medicine; ATTEND Internal Medicine
DX: J44.1 Chronic obstructive pulmonary disease with (acute) exacerbation (principal); J18.9 Pneumonia, unspecified organism; E11.9 Type 2 diabetes mellitus without complications; I10 Essential (primary) hypertension; J44.0 Chronic obstructive pulmonary disease with (acute) lower respiratory infection; E78.00 Pure hypercholesterolemia, unspecified; Z87.891 Personal history of nicotine dependence
CPT/HCPCS: 36415; 71045; 80048; 80076; 82962; 83605; 84132; 84145; 84484; 85025; 85610; 85730; 87040; 87070; 87205; 87804; 93005; 94640; 94760; 96361; 96365; 96375; 99285; J1650; J2920; J2930; J3010; J7030; J7605

== ENCOUNTER 2021-01-05 03:17 | Observation (INO) | payer OTHER ==
[2021-01-05] MEDS ORDERED: MORPHINE 4 MG/ML SYR ONE ×2 (04:11→08:33)
[2021-01-05] MEDS ORDERED: ONDANSETRON 4 MG/2 ML VIAL ONE ×2 (04:11→08:33)
[2021-01-05] MEDS ORDERED: NA CHLORIDE 0.9% 500 ML ONE ×3 (04:12→08:42)
[2021-01-05] MEDS ORDERED: FAMOTIDINE 20 MG/2 ML VIAL IV ONE (04:12)
[2021-01-05 04:28] LABS: Basophils % 0.6 % (0-1.3); Hematocrit 38.7 % (39.6-49.0); Lymphocytes % 16.9 % (15.3-44.8); MPV 8.7 fL (7.6-11.3); RBC Red Blood Cell Count 4.22 M/uL (4.33-5.43)
[2021-01-05 04:40] LABS: Albumin 3.8 g/dL (3.4-5.0); Bilirubin Direct 0.2 mg/dL (0-0.2); Bilirubin Total 0.7 mg/dL (0.2-1.0); Potassium 3.5 mmol/L (3.5-5.1); Protein, Total 6.8 g/dL (6.4-8.2)
--- NOTE | 2021-01-05 07:14 | RAD REPORT ---
EXAM DESCRIPTION: CT - Abdomen Pelvis W Contrast - 01/05/2021 6:58 am CLINICAL HISTORY: Abdominal pain. COMPARISON: None. TECHNIQUE: Computed axial tomography of the abdomen and pelvis was obtained. 100 cc Isovue-300 is ad ministered intravenously. Oral contrast was given. All CT scans are performed using dose optimization technique as appropriate and may include automated exposure control or mA/KV adjustment according to patient size. FINDINGS: The liver, spleen, pancreas, adrenals and kidneys appear unremarkable. The appendix is normal caliber. There is no evidence of diverticulitis A small umbilical hernia contains. Spondylosis involves the lumbar spine. Bladder wall appears thickened. Prostate gland is borderline enlarged IMPRESSION: Bladder wall appears thickened. This may be secondary to distention or inflammation.
--- NOTE | 2021-01-05 08:05 | ER ---
Nurse's Notes [facility] – [place], [place] Name: Victoriano Coronel Age: 70 yrs Sex: Male : 1950 Arrival Date: 01/05/2021 Time: 03:22 Bed 6 Private MD: Diagnosis: Abdominal tenderness;Pain in thoracic spine;Type 2 diabetes mellitus;Essential (primary) hypertension;Cystitis Presentation: 01/05 03:39 Chief complaint: Patient states: abdominal pain, back pain and constipation for few em days, also reports nausea and fever of 103.1 after getting his covid vaccines on Wednesday. Coronavirus screen: Client denies travel out of the [place] in the last 14 days. Ebola Screen: Patient negative for fever greater than or equal to 101.5 degrees Fahrenheit, and additional compatible Ebola Virus Disease symptoms Patient denies exposure to infectious person. Patient denies travel to an Ebola-affected area in the 21 days before illness onset. No symptoms or risks identified at this time. Initial Sepsis Screen: Does the patient meet any 2 criteria? No. Patient's initial sepsis screen is negative. Does the patient have a suspected source of infection? No. Patient's initial sepsis screen is negative. Risk Assessment: Do you want to hurt yourself or someone else? Patient reports no desire to harm self or others. Onset of symptoms was January 05, 2021. 03:39 Method Of Arrival: Ambulatory em 03:39 Acuity: JAVI 3 em Historical: - Allergies: 03:48 No Known Allergies; em - Home Meds: 03:46 atorvastatin 20 mg Oral tab [Active]; clondine 0.3mg [Active]; losartan 100 mg Oral tab em [Active]; metformin 500 mg Oral tab [Active]; hydrocodone [Active]; - PMHx: 03:46 Colitis; Diabetes - NIDDM; Hypertension; COPD; Diverticulitis; Hyperlipidemia; em - PSHx: 03:46 None; em - Immunization history:: Adult Immunizations up to date. - Social history:: Smoking status: Patient denies any tobacco usage or history of. Screenin:25 Abuse screen: Denies threats or abuse. Denies injuries from another. Nutritional lp1 screening: No deficits noted. Tuberculosis screening: No symptoms or risk factors identified. Fall Risk Total Ar[place]o Fall Scale indicates High Risk Score (45 or more points). Fall prevention measures have been instituted. Side Rails Up X 2 Family Present and informed to notify staff if the need to leave the bedside As available patient and family educated on Fall Prevention Program and Strategies. Assessment: 04:00 General: Appears in no apparent distress. Behavior is calm, cooperative, appropriate lp1 for age. Pain: Complains of pain in lumbar area, right lower quadrant and left lower quadrant Pain currently is 7 out of 10 on a pain scale. Quality of pain is described as aching. Neuro: Level of Consciousness is awake, alert, obeys commands, Oriented to person, place, situation. Cardiovascular: Patient's skin is warm and dry. Respiratory: Respiratory effort is even, unlabored. GI: Abdomen is round Bowel sounds hyperactive in right upper quadrant, left upper quadrant, right lower quadrant and left lower quadrant Abd is soft and non tender X 4 quads. : No signs and/or symptoms were reported regarding the genitourinary system. EENT: No signs and/or symptoms were reported regarding the EENT system. Derm: Skin is intact, is fragile, Skin is dry, Skin is normal. Musculoskeletal: No deficits noted. 05:00 Reassessment: health technician notified of patient completing oral contrast at this time. lp1 05:45 Reassessment: Patient reports chills, feeling cold; warm blankets given for comfort. lp1 08:36 General: Appears in no apparent distress. comfortable, Behavior is calm, cooperative, jd3 appropriate for age. Pain: Complains of pain in back Quality of pain is described as aching, shooting. Neuro: Level of Consciousness is awake, alert, obeys commands, Oriented to person, place, time, situation. Cardiovascular: Denies chest pain, Capillary refill < 3 seconds Patient's skin is warm and dry. Respiratory: Airway is patent Respiratory effort is even, unlabored, Respiratory pattern is regular, symmetrical, Denies cough, shortness of breath. GI: Abdomen is round non-distended, Abd is soft and non tender X 4 quads. Reports nausea. : No signs and/or symptoms were reported regarding the genitourinary system. EENT: No signs and/or symptoms were reported regarding the EENT system. Derm: Skin is intact, is fragile, Skin is dry, Skin is normal, Skin temperature is warm. Musculoskeletal: Circulation, motion, and sensation intact. Range of motion: intact in all extremities. 09:48 Reassessment: Patient appears in no apparent distress at this time. Patient and/or jd3 family updated on plan of care and expected duration. Pain level reassessed. Patient is alert, oriented x 3, equal unlabored respirations, skin warm/dry/pink. awaiting admission. 10:56 Reassessment: Patient appears in no apparent distress at this time. Patient and/or ca1 family updated on plan of care and expected duration. Pain level reassessed. Patient is alert, oriented x 3, equal unlabored respirations, skin warm/dry/pink. Vital Signs: 03:39 BP 165 / 83; Pulse 87; Resp 18; Temp 98.7(O); Pulse Ox 95% on R/A; Weight 88.45 kg; em Height 5 ft. 9 in. (175.26 cm); Pain 9/10; 06:00 BP 157 / 76; Pulse 93; Resp 17; Pulse Ox 95% on R/A; lp1 08:38 BP 177 / 85; Pulse 85; Resp 16 S; Pulse Ox 96% on R/A; jd3 09:48 BP 179 / 90; Pulse 97; Resp 17 S; Pulse Ox 98% on R/A; jd3 03:39 Body Mass Index 28.80 (88.45 kg, 175.26 cm) em ED Course: 03:22 Patient arrived in ED. bp1 03:28 Saad Cooper MD is Attending Physician. mh7 03:39 Arm band placed on. em 03:42 Triage completed. em 03:48 Tamia Angel, RN is Primary Nurse. lp1 04:05 Initial lab(s) drawn, by va, sent to lab. Inserted saline lock: 20 gauge in right lp1 antecubital area, using aseptic technique. Blood collected. 04:25 Patient has correct armband on for positive identification. Placed in gown. Bed in low lp1 position. Call light in reach. monitoring manager on. Pulse ox on. NIBP on. 06:58 CT Abd/Pelvis - PO and IV Contrast In Process Unspecified. EDMS 07:14 Attending Physician role handed off by Saad Cooper MD joselin 07:14 Mark Levi MD is Attending Physician. joselin 08:01 Maco Han MD is Hospitalizing Provider. joselin 08:27 XRAY Chest (1 view) In Process Unspecified. EDMS 11:30 IV was noted on the ER bed, catheter intact. aa5 Administered Medications: 04:05 Drug: morphine 4 mg Route: IVP; Site: right antecubital; lp1 04:30 Follow up: Response: No adverse reaction; Marked relief of symptoms lp1 04:05 Drug: Zofran (Ondansetron) 4 mg Route: IVP; Site: right antecubital; lp1 06:11 Follow up: Response: Marked relief of symptoms lp1 04:05 Drug: Pepcid (famotidine) 20 mg Route: IVP; Site: right antecubital; lp1 04:30 Follow up: Response: No adverse reaction lp1 04:05 Drug: NS 0.9% 500 ml Route: IV; Rate: bolus; Site: right antecubital; lp1 04:45 Follow up: IV Status: Completed infusion; IV Intake: 500ml lp1 06:31 Drug: NS 0.9% 500 ml Route: IV; Rate: bolus; Site: right antecubital; rv 08:21 Drug: morphine 4 mg Route: IVP; Site: right antecubital; jd3 08:22 Drug: Zofran (Ondansetron) 4 mg Route: IVP; Site: right antecubital; jd3 08:36 Drug: Rocephin - (cefTRIAXone) 1 grams Route: IVPB; Infused Over: 30 mins; Site: right jd3 antecubital; 08:36 Drug: NS 0.9% 500 ml Route: IV; Rate: bolus; Site: right antecubital; jd3 08:36 Drug: NS 0.9% 1000 ml Route: IV; Rate: 75 ml/hr; Site: right antecubital; jd3 Intake: 04:45 IV: 500ml; Total: 500ml. lp1 Outcome: 08:05 Decision to Hospitalize by Provider. [facility] 11:30 Eloped from ER room [address] Levi states pt was seen walking out of aa5 ER stating he was going home and no longer wanted to stay. Dr. Levi states that pt stated he needed a room with a window and walked out of ER (ER rooms do not have windows and pt was ER HOLD). Found gone at 1130. 11:39 Patient left the ED. aa5 Signatures: Dispatcher [employer] Mark Ybarra MD MD cha Munoz, Edgar, RN RN Raiza Campos RN RN aa5 Tamia Angel RN RN lp1 Alberto Bourgeois RN RN jd3 Robert Loco RN RN rv Laura Mariano RN RN ca1 Klarissa Ryan Maurice, MD MD 7
--- NOTE | 2021-01-05 08:05 | EDPHYS ---
Physician Documentation [facility] Name: Victoriano Coronel Age: 70 yrs Sex: Male : 1950 Arrival Date: 01/05/2021 Time: 03:22 Bed 6 Private MD: ED Physician Mark Levi HPI: 01/05 03:54 This 70 yrs old Male presents to ER via Ambulatory with complaints of mh7 Abdominal Pain, Back Pain. 03:54 The patient presents with abdominal pain that is diffuse. Onset: The symptoms/episode mh7 began/occurred 3 day(s) ago. The symptoms do not radiate. Associated signs and symptoms: Pertinent positives: constipation, nausea, Back pain, Pertinent negatives: anorexia, blood in stools, chest pain, diarrhea, dysuria, fever, headache, hematuria, palpitations, shortness of breath, testicular pain, vomiting, vomiting blood. The symptoms are described as intermittent, vague, waxing/waning. Modifying factors: The symptoms are alleviated by nothing, the symptoms are aggravated by nothing. Severity of pain: At its worst the pain was moderate yesterday, in the emergency department the pain is unchanged. Historical: - Allergies: 03:48 No Known Allergies; em - Home Meds: 03:46 atorvastatin 20 mg Oral tab [Active]; clondine 0.3mg [Active]; losartan 100 mg Oral tab em [Active]; metformin 500 mg Oral tab [Active]; hydrocodone [Active]; - PMHx: 03:46 Colitis; Diabetes - NIDDM; Hypertension; COPD; Diverticulitis; Hyperlipidemia; em - PSHx: 03:46 None; em - Immunization history:: Adult Immunizations up to date. - Social history:: Smoking status: Patient denies any tobacco usage or history of. ROS: 03:54 Constitutional: Negative for fever, chills, and weight loss, Eyes: Negative for injury, mh7 pain, redness, and discharge, ENT: Negative for injury, pain, and discharge, Neck: Negative for injury, pain, and swelling, Cardiovascular: Negative for chest pain, palpitations, and edema, Respiratory: Negative for shortness of breath, cough, wheezing, and pleuritic chest pain, : Negative for injury, bleeding, discharge, and swelling, MS/Extremity: Negative for injury and deformity, Skin: Negative for injury, rash, and discoloration, Neuro: Negative for headache, weakness, numbness, tingling, and seizure, Psych: Negative for depression, anxiety, suicide ideation, homicidal ideation, and hallucinations, Allergy/Immunology: Negative for hives, rash, and allergies, Endocrine: Negative for neck swelling, polydipsia, polyuria, polyphagia, and marked weight changes, Hematologic/Lymphatic: Negative for swollen nodes, abnormal bleeding, and unusual bruising. Exam: 03:54 Constitutional: This is a well developed, well nourished patient who is awake, alert, mh7 and in no acute distress. Head/Face: Normocephalic, atraumatic. Eyes: Pupils equal round and reactive to light, extra-ocular motions intact. Lids and lashes normal. Conjunctiva and sclera are non-icteric and not injected. Cornea within normal limits. Periorbital areas with no swelling, redness, or edema. Neck: Trachea midline, no thyromegaly or masses palpated, and no cervical lymphadenopathy. Supple, full range of motion without nuchal rigidity, or vertebral point tenderness. No Meningismus. Chest/axilla: Normal chest wall appearance and motion. Nontender with no deformity. No lesions are appreciated. Cardiovascular: Regular rate and rhythm with a normal S1 and S2. No gallops, murmurs, or rubs. Normal PMI, no JVD. No pulse deficits. Respiratory: Lungs have equal breath sounds bilaterally, clear to auscultation and percussion. No rales, rhonchi or wheezes noted. No increased work of breathing, no retractions or nasal flaring. 03:54 Skin: Warm, dry with normal turgor. Normal color with no rashes, no lesions, and no evidence of cellulitis. MS/ Extremity: Pulses equal, no cyanosis. Neurovascular intact. Full, normal range of motion. Neuro: Awake and alert, GCS 15, oriented to person, place, time, and situation. Cranial nerves II-XII grossly intact. Motor strength 5/5 in all extremities. Sensory grossly intact. Cerebellar exam normal. Normal gait. Psych: Awake, alert, with orientation to person, place and time. Behavior, mood, and affect are within normal limits. 03:54 Abdomen/GI: Inspection: obese Bowel sounds: normal, in all quadrants, Palpation: moderate abdominal tenderness, in the abdomen diffusely, mass, is not appreciated, rebound tenderness, is not appreciated, voluntary guarding, is not appreciated, involuntary guarding, is not appreciated, no appreciated organomegaly, Indicators: McBurney's point is not tender, Irving's sign is negative, Rovsing's sign is negative, Obturator sign is negative, Psoas sign is negative, Liver: no appreciated palpable abnormalities, Hernia: not appreciated. 03:54 Back: pain, that is mild, of the lumbar area, ROM is normal, normal spinal alignment noted, CVA tenderness, is absent, vertebral tenderness, is appreciated at lumbar, muscle spasm, is not present, Straight leg raises: of both lower extremities does not illicit pain. 08:36 ECG was reviewed by the Attending Physician. [facility] Vital Signs: 03:39 BP 165 / 83; Pulse 87; Resp 18; Temp 98.7(O); Pulse Ox 95% on R/A; Weight 88.45 kg; em Height 5 ft. 9 in. (175.26 cm); Pain 9/10; 06:00 BP 157 / 76; Pulse 93; Resp 17; Pulse Ox 95% on R/A; lp1 08:38 BP 177 / 85; Pulse 85; Resp 16 S; Pulse Ox 96% on R/A; jd3 09:48 BP 179 / 90; Pulse 97; Resp 17 S; Pulse Ox 98% on R/A; jd3 03:39 Body Mass Index 28.80 (88.45 kg, 175.26 cm) em MDM: 07:14 Patient medically screened. [facility] 08:08 Differential diagnosis: AAA, cholecystitis, Cholelithiasis, pancreatitis, Peptic Ulcer joselin Disease, Prostatitis, Ureterolithiasis, urinary tract infection. Data reviewed: vital signs, nurses notes, lab test result(s), EKG, radiologic studies, CT scan, plain films. Data interpreted: geologic technician: rate is 93 beats/min, rhythm is regular, Pulse oximetry: on room air is 95 %. Test interpretation: by ED physician or midlevel provider: ECG, plain radiologic studies. Counseling: I had a detailed discussion with the patient and/or guardian regarding: the historical points, exam findings, and any diagnostic results supporting the discharge/admit diagnosis, the presence of at least one elevated blood pressure reading (>120/80) during this emergency department visit, radiology results, the need for further work-up and treatment in the hospital. 01/05 03:46 Order name: Basic Metabolic Panel; Complete Time: 04:49 [facility] 01/05 03:46 Order name: CBC with Diff; Complete Time: 04:33 7 01/05 03:46 Order name: Hepatic Function; Complete Time: 04:49 [facility] 01/05 03:46 Order name: Lipase; Complete Time: 04:49 [facility] 01/05 07:50 Order name: Urine Culture [facility] 01/05 07:59 Order name: Magnesium; Complete Time: 08:37 [facility] 01/05 04:53 Order name: CT Abd/Pelvis - PO and IV Contrast; Complete Time: 07:16 [facility] 01/05 07:59 Order name: NT PRO-BNP; Complete Time: 08:37 [facility] 01/05 07:59 Order name: PT-INR; Complete Time: 19:23 [facility] 01/05 07:59 Order name: Troponin (emerg Dept Use Only); Complete Time: 08:37 [facility] 01/05 08:05 Order name: Psa Screen [facility] 01/05 08:05 Order name: CRP [facility] 01/05 08:06 Order name: PSA Screen; Complete Time: 19:23 [facility] 01/05 08:06 Order name: C-Reactive Protein; Complete Time: 19:23 [facility] 01/05 03:46 Order name: IV Saline Lock; Complete Time: 04:23 7 01/05 03:46 Order name: Labs collected and sent; Complete Time: 04:23 [facility] 01/05 07:59 Order name: XRAY Chest (1 view); Complete Time: 19:23 [facility] 01/05 07:59 Order name: EKG; Complete Time: 08:00 [facility] 01/05 08:12 Order name: Diet Regular; Complete Time: 08:13 aa5 01/05 08:35 Order name: Thoracic Spine Wo Contr [facility] 01/05 03:46 Order name: Urine Dipstick-Ancillary (obtain specimen); Complete Time: 08:21 [facility] 01/05 03:46 Order name: EKG - Nurse/Tech; Complete Time: 04:21 [facility] 01/05 07:59 Order name: Cardiac monitoring; Complete Time: 08:00 [facility] 01/05 07:59 Order name: O2 Per Protocol; Complete Time: 08:00 [facility] 01/05 07:59 Order name: O2 Sat Monitoring; Complete Time: 08:00 [facility] EC:36 Rate is 83 beats/min. Rhythm is regular. QRS [place] is Normal. IA interval is normal. QRS joselin interval is normal. QT interval is normal. No Q waves. T waves are Normal. T waves are Inverted in leads V5, V6. No ST changes noted. Clinical impression: NSR w/ Non-specific ST/T Changes and No evidence of ischemia. Interpreted by me. Reviewed by me. Administered Medications: 04:05 Drug: morphine 4 mg Route: IVP; Site: right antecubital; lp1 04:30 Follow up: Response: No adverse reaction; Marked relief of symptoms lp1 04:05 Drug: Zofran (Ondansetron) 4 mg Route: IVP; Site: right antecubital; lp1 06:11 Follow up: Response: Marked relief of symptoms lp1 04:05 Drug: Pepcid (famotidine) 20 mg Route: IVP; Site: right antecubital; lp1 04:30 Follow up: Response: No adverse reaction lp1 04:05 Drug: NS 0.9% 500 ml Route: IV; Rate: bolus; Site: right antecubital; lp1 04:45 Follow up: IV Status: Completed infusion; IV Intake: 500ml lp1 06:31 Drug: NS 0.9% 500 ml Route: IV; Rate: bolus; Site: right antecubital; rv 08:21 Drug: morphine 4 mg Route: IVP; Site: right antecubital; jd3 08:22 Drug: Zofran (Ondansetron) 4 mg Route: IVP; Site: right antecubital; jd3 08:36 Drug: Rocephin - (cefTRIAXone) 1 grams Route: IVPB; Infused Over: 30 mins; Site: right jd3 antecubital; 08:36 Drug: NS 0.9% 500 ml Route: IV; Rate: bolus; Site: right antecubital; jd3 08:36 Drug: NS 0.9% 1000 ml Route: IV; Rate: 75 ml/hr; Site: right antecubital; jd3 Disposition: 01/05/21 08:05 Hospitalization ordered by Maco Han for Observation. Preliminary diagnosis are Abdominal tenderness, Pain in thoracic spine, Type 2 diabetes mellitus, Essential (primary) hypertension, Cystitis. - Bed requested for Telemetry/MedSurg (observation). - Status is Observation. aa5 - Condition is Stable. - Problem is new. - Symptoms have improved. Signatures: Dispatcher [employer] Mark Ybarra MD MD cha Munoz, Edgar, RN RN Raiza Campos RN RN aa5 Tamia Angel, RN RN lp1 Garfield Barclay, WINE CELLAR STOCK CLERK-C WINE CELLAR STOCK CLERK-Cla1 Alberto Bourgeois RN RN jd3 Robert Loco RN RN rv Holmes, Maurice, MD MD mh7 Corrections: (The following items were deleted from the chart) 11:39 08:05 Hospitalization Ordered by Maco Han MD for Observation. Preliminary diagnosis is aa5 Abdominal tenderness; Pain in thoracic spine; Type 2 diabetes mellitus; Essential (primary) hypertension; Cystitis. Bed requested for Telemetry/MedSurg (observation). Status is Observation. Condition is Stable. Problem is new. Symptoms have improved. joselin
[2021-01-05] MEDS ORDERED: CEFTRIAXONE/SWI 1gm 1 GM/10 ML SYR ONE (08:23)
[2021-01-05 08:30] LABS: Magnesium 2.5 mg/dL (1.8-2.4); NT PRO-BNP 304 pg/mL (<125); Troponin (Emerg Dept Use Only) < 0.02 ng/mL (0.0-0.045)
[2021-01-05 08:37] LABS: Protime INR 0.97
[2021-01-05] MEDS ORDERED: NA CHLORIDE 0.9% 1,000 ML ONE (08:42)
[2021-01-05 08:58] LABS: C-Reactive Protein 13.4 mg/L (<3.00)
[2021-01-05 10:09] VITALS: BMI 28.5
--- NOTE | 2021-01-05 10:16 | RAD REPORT ---
EXAM DESCRIPTION: Ricky Single View01/05/2021 8:29 am CLINICAL HISTORY: Chest pain COMPARISON: 1999 FINDINGS: The lungs are hyperaerated. The lungs appear clear of acute infiltrate. The heart is normal size IMPRESSION: No acute abnormalities displayed
[2021-01-05 11:46] VITALS: TEMP 98.7
[2021-01-05 11:50] VITALS: BP 179/90; O2SAT 98
--- NOTE | 2021-01-05 19:32 | DS ---
Date of Discharge: 01/05/2021 Disposition: The patient left hospital against medical advice. Hospital Course: A 70-year-old male patient, came into emergency room with complaints of back pain. Please see dictated H and P for more details. After I saw the patient in the emergency room this morning few hours later, ER staff contacted me and informed me that the patient and patient's left the emergency room without notifying any nurse or physician staff and they were nowhere to be found in the emergency room. Final Diagnoses: 1. Lumbar radiculopathy. 2. Lumbar spondylosis. 3. Thoracic spondylosis. 4. Osteoarthritis, multiple sites. 5. Anemia, chronic, unspecified. 6. Chronic constipation. 7. Hypertension. 8. Hyperlipidemia. 9. Type 2 diabetes mellitus. 10. Alzheimer disease. 11. Chronic obstructive pulmonary disease. 12. Insomnia. JOHN/MODL Voice ID: [id number] Report ID: [id number] MTDD
--- NOTE | 2021-01-05 19:32 | HP ---
Date of Admission: 01/05/2021 Chief Complaint: Back pain. History Of Present Illness: This is a 70-year-old male patient, who has chronic back pain and sees pain management physician, Dr. Bennett, and take pain medication as prescribed to him. Recently, he received his second dose of COVID vaccine few days ago and had some fever and chills, for which he took Tylenol and Motrin, and that problem subsided. He was doing fine in his normal usual state of health until of this week, so about 3 or 4 days ago, his back pain started to get worse. He usually has lower back pain, but now he has more intense pain not only in the lower back, but also lower thoracic spine area also. Denies any fall or injury. Back pain sometime radiates down to his posterior thighs. Pain gets worse when he sits, stands, walks, better with rest or heating pad. No fever, chills, nausea, or vomiting. After he came into emergency room, he was evaluated and admitted to the hospital. I saw him in emergency room and he describes his pain as 9/10 on the pain scale. Allergies: NO KNOWN ALLERGIES. Medications List: Reviewed. Review of Systems: Musculoskeletal: As mentioned above. All other systems reviewed and negative. Past Medical History: Significant for COVID-19 infection which was on May 15, 2020, Alzheimer disease, hypothyroidism, type 2 diabetes mellitus, COPD, hypertension, hyperlipidemia, gallbladder polyp, erectile dysfunction, testicular hypofunction, osteoarthritis at multiple sites, anemia, insomnia, hypokalemia. Past Surgical History: Negative. Family History: Significant for father , had myocardial infarction and hypertension; mother , had diabetes; brother with hypertension; and sister with hypertension. Social History: Prior history of smoking, not at present time. Use of alcohol occasional. Physical Examination: Vital Signs: Blood pressure 165/83, pulse 87, temperature 98.7, pulse ox 95%. Weight 88.45 kg, height 5 feet 9 inches. General: Awake, alert, oriented, not in distress. HEENT: Head atraumatic, normocephalic. Conjunctivae nonerythematous. Sclerae white. Mouth, no thrush or edema noted. Ears/Nose, no mass, lesion, discharge noted. Neck: Supple. No JVD, lymph nodes, bruit, thyromegaly noted. Lungs: Bilateral good equal air entry. Clear to auscultation. No rhonchi. No rales. Heart: Normal heart sounds. No murmur or gallop. Abdomen: Soft. Bowel sounds normal. No guarding, rigidity, tenderness, mass, hepatosplenomegaly, distention, or bruit noted. Extremities: No leg edema. No calf tenderness. Skin: No rash, ulcer, cellulitis. Lymphatics: No lymph node enlargement in neck, supraclavicular, infraclavicular region. Neuro: No focal neurological deficit. Chest: Unremarkable. External Genitalia: Deferred. Rectal: Deferred. Laboratory Data: White count 5.7, hemoglobin 13.1, platelets 168. Sodium 140, potassium 3.5, chloride 104, bicarb 27, BUN 8, creatinine 0.92, glucose 125. Liver function tests unremarkable. Troponin less than 0.02. CRP 13.4. PSA 0.73. Lipase 220. Chest x-ray, no acute changes. CAT scan of the abdomen and pelvis with contrast shows bladder wall thickening,, otherwise no other acute changes noted. Impression: 1. Lumbar radiculopathy. 2. Lumbar spondylosis. 3. Thoracic spondylosis. 4. Osteoarthritis, multiple sites. 5. Anemia, chronic, unspecified. 6. Chronic constipation. 7. Hypertension. 8. Hyperlipidemia. 9. Type 2 diabetes mellitus. 10. Alzheimer disease. 11. Chronic obstructive pulmonary disease. 12. Insomnia. Plan: Admit the patient to hospital for further evaluation and management of this problem. We will go ahead and get an MRI of his thoracic and lumbar spine without contrast tomorrow. Give pain medication per order. Home medications will be continued per order. He has reported some constipation problem with his chronic pain medication use and we will address that with stool softener and laxative. Details and plan of treatment discussed with him. I will see him tomorrow for followup and possible discharge to go home tomorrow. JOHN/MODL Voice ID: [id number] MTDD
[2021-01-06 12:16] LABS: Urine Blood NEGATIVE (Negative); Urine Glucose NEGATIVE (Negative); Urine Protein NEGATIVE (Negative); Urine pH 6.5 (5.0-7.0)
[2021-01-07 14:49] LABS: Urine Blood Negative (Negative); Urine Glucose Negative (Negative); Urine Protein Negative (Negative); Urine pH 6.5 (5.0-7.0)
== END 2021-01-05 11:30 | disposition left against medical advice (07) ==
LOC: ER 03:17 → ERHOLD 08:25
PROVIDERS: ADMIT Internal Medicine; ATTEND Internal Medicine
DX: M47.26 Other spondylosis with radiculopathy, lumbar region (principal); M47.814 Spondylosis without myelopathy or radiculopathy, thoracic region; G30.9 Alzheimer's disease, unspecified; F02.80 Dementia in other diseases classified elsewhere, unspecified severity, without behavioral disturbance, psychotic disturbance, mood disturbance, and anxiety; Z86.16 Personal history of COVID-19; E03.9 Hypothyroidism, unspecified; E11.9 Type 2 diabetes mellitus without complications; J44.9 Chronic obstructive pulmonary disease, unspecified; I10 Essential (primary) hypertension; M15.9 Polyosteoarthritis, unspecified; Z87.891 Personal history of nicotine dependence; D64.9 Anemia, unspecified; K59.09 Other constipation; G47.00 Insomnia, unspecified; Z79.84 Long term (current) use of oral hypoglycemic drugs; R94.31 Abnormal electrocardiogram [ECG] [EKG]
CPT/HCPCS: 96361; 93005 ×2; 87088; 85025; 87086; 80048; 36415; 83735; 85610; 80076; 81003 ×2; 84484; 83690; 83880; 86140; 74177; 71045; 96375; 96374; 99284; G0103; Q9967; J0696; J7040 ×3; J7030; J2405 ×2; G0378 ×2

== ENCOUNTER 2021-06-02 14:28 | Observation (INO) | payer OTHER ==
--- NOTE | 2021-06-02 16:20 | RAD REPORT ---
EXAM DESCRIPTION: RAD - Chest Single View - 06/02/2021 3:51 pm CLINICAL HISTORY: CHEST PAIN COMPARISON: December 2020 TECHNIQUE: AP portable chest image was obtained 06/02/2021 3:51 pm . FINDINGS: No acute lung parenchymal process. Interstitial pattern matches comparison. Heart and vasc ulature are normal. No measurable pleural effusion and no pneumothorax. No acute bony abnormality see n. No acute aortic findings suspected. IMPRESSION: No acute cardiopulmonary process. No significant change from comparison study.
[2021-06-02 16:30] LABS: Protime INR 0.94
[2021-06-02 16:41] LABS: Basophils % 0.3 % (0-1.3); Hematocrit 44.6 % (39.6-49.0); Lymphocytes % 9.8 % (15.3-44.8); MPV 8.6 fL (7.6-11.3); RBC Red Blood Cell Count 4.87 M/uL (4.33-5.43)
[2021-06-02] MEDS ORDERED: NA CHLORIDE 0.9% 500 ML ONE (16:43)
[2021-06-02] MEDS ORDERED: ONDANSETRON 4 MG/2 ML VIAL ONE ×2 (16:43→16:51)
[2021-06-02 16:50] LABS: ALT/SGPT 29 U/L (12-78); AST/SGOT 18 U/L (15-37); Albumin 4.1 g/dL (3.4-5.0); Alkaline Phosphatase 85 U/L (45-117); BUN Blood Urea Nitrogen 20 mg/dL (7-18); Bicarbonate 28 mmol/L (21-32); Bilirubin Direct 0.3 mg/dL (0-0.2); Bilirubin Total 1.2 mg/dL (0.2-1.0); C-Reactive Protein < 2.90 mg/L (<3.00); Ferritin 165.5 ng/mL (26-388); Glucose Level 165 mg/dL (74-106); Magnesium 2.4 mg/dL (1.8-2.4); NT PRO-BNP 917 pg/mL (<125); Potassium 4.3 mmol/L (3.5-5.1); Sodium Level 137 mmol/L (136-145); Troponin (Emerg Dept Use Only) < 0.02 ng/mL (0.0-0.045)
--- NOTE | 2021-06-02 17:27 | RAD REPORT ---
EXAM DESCRIPTION: CT - Abdomen Pelvis W Contrast - 06/02/2021 5:06 pm CLINICAL HISTORY: abd pain, vomiting COMPARISON: Abdomen Pelvis W Contrast dated 01/05/2021 TECHNIQUE: Biphasic, helical CT imaging of the abdomen and pelvis was performed following 100 ml non -ionic IV contrast. No oral contrast was given. All CT scans are performed using dose optimization technique as appropriate and may include automated exposure control or mA/KV adjustment according to patient size. FINDINGS: No suspicious findings in the lung bases. The liver, spleen, and pancreas show no suspicious findings. Gallbladder and biliary tree are also wi thout suspicious finding. Symmetric renal function is seen with no hydronephrosis or suspicious renal mass. No pyelonephritis o r acute parenchymal process. Urinary bladder is only partially filled but grossly normal. Prostate gl and and seminal vesicles show no suspicious findings. No adrenal abnormalities. No dilated bowel loops or bowel wall thickening. No appendicitis findings. Sigmoid mild to moderate d iverticulosis present without diverticulitis or other acute colon process. No free air, free fluid or inflammatory stranding. No mass or bulky lymphadenopathy. Patient has a very minimal less than 10 m m umbilical hernia. Disc and bone degenerative changes are present. No pathologic bone process seen. IMPRESSION: Contrast enhanced CT abdomen and pelvis showing no acute or emergent finding. Nonacute findings detailed in the body of the report.
--- NOTE | 2021-06-02 17:46 | ER ---
Nurse's Notes [facility] Name: Victoriano Coronel Age: 70 yrs Sex: Male : 1950 Arrival Date: 06/02/2021 Time: 14:29 Bed 24 Private MD: Maco Han C Diagnosis: Unspecified atrial fibrillation;Chest pain, unspecified;Vomiting Presentation: 06/02 14:34 Chief complaint: Patient states: Diarrhea, chest pain, vomiting, high blood pressure x kg 3 days. Coronavirus screen: Vaccine status: Patient reports receiving the 2nd dose of the covid vaccine. Date January 01, 2021 Modern Patient reports receiving the 1st dose of the Covid vaccine. Date December 04, 2020. Ebola Screen: Patient negative for fever greater than or equal to 101.5 degrees Fahrenheit, and additional compatible Ebola Virus Disease symptoms Patient denies exposure to infectious person. Patient denies travel to an Ebola-affected area in the 21 days before illness onset. No symptoms or risks identified at this time. Initial Sepsis Screen: Does the patient meet any 2 criteria? No. Patient's initial sepsis screen is negative. Does the patient have a suspected source of infection? No. Patient's initial sepsis screen is negative. Risk Assessment: Do you want to hurt yourself or someone else? Patient reports no desire to harm self or others. Onset of symptoms was May 31, 2021. 14:34 Method Of Arrival: Ambulatory kg 14:34 Acuity: JAVI 3 kg Triage Assessment: 14:45 General: Appears in no apparent distress. Behavior is calm, cooperative, appropriate kg for age, quiet. Pain: Complains of pain in right lower quadrant and left lower quadrant Pain currently is 8 out of 10 on a pain scale. Cardiovascular: Reports chest pain, nausea, vomiting. GI: Reports lower abdominal pain, nausea, vomiting. Historical: - Allergies: 14:37 No Known Allergies; kg - Home Meds: 14:37 hydralazine 50 mg Oral tab 1.5 tab TID [Active]; citalopram 20 mg tab 1 tab once daily kg [Active]; meloxicam 7.5 mg oral tab 1 tab once daily [Active]; doxazosin 1 mg oral tab 1 tab once daily [Active]; memantine 10 mg oral tab 1 tab 2 times per day [Active]; losartan 100 mg Oral tab 1 tab once daily [Active]; clondine 0.3mg every 8 hours [Active]; amlodipine 5 mg tab 1 tab once daily [Active]; metformin 500 mg Oral tab 2 times per day [Active]; atorvastatin 20 mg Oral tab 1 tab once daily [Active]; donepezil 5 mg oral tab 1 tab once daily [Active]; Klor-Con 10 10 mEq Oral TbER 1 tab once daily [Active]; Rolfe 5-325 mg Oral tab 1 tab every 6 hours [Active]; Symbicort 160-4.5 mcg/actuation inhalation HFAA [Active]; 14:45 tizanidine oral [Active]; kg - PMHx: 14:37 Hypertension; Hyperlipidemia; Diabetes - NIDDM; COPD; Dementia; Chronic back pain; kg - PSHx: 14:37 None; kg - Immunization history:: Adult Immunizations up to date, Client reports receiving the 2nd dose of the Covid vaccine, Date received: January 01, 2021 [facility] Client reports receiving the 1st dose of the Covid vaccine, December 04, 2020 [facility]. - Social history:: Smoking status: Patient reports the use of cigarette tobacco products, Patient uses alcohol, occasionally. - Family history:: not pertinent. - Hospitalizations: : No recent hospitalization is reported. Vital Signs: 14:34 BP 148 / 93; Pulse 109; Resp 20; Temp 98.4(O); Pulse Ox 96% on R/A; Weight 81.65 kg kg (R); Height 5 ft. 8 in. (172.72 cm) (R); Pain 8/10; 21:02 BP 158 / 96; Pulse 103; Resp 16; Temp 97; Pulse Ox 98% ; wr 14:34 Body Mass Index 27.37 (81.65 kg, 172.72 cm) kg ED Course: 14:29 Patient arrived in ED. am2 14:29 Maco Han MD is Private Physician. am2 14:37 Triage completed. kg 14:57 Felipe Harris MD is Attending Physician. rn 15:52 XRAY Chest (1 view) In Process Unspecified. EDMS 16:17 Brenna Bee is Primary Nurse. aj2 16:21 CBC with Diff Sent. aj2 16:21 LFT's Sent. aj2 16:21 Magnesium Sent. aj2 16:21 NT PRO-BNP Sent. aj2 16:21 Troponin (emerg Dept Use Only) Sent. aj2 16:21 PT-INR Sent. aj2 16:22 Ferritin Sent. aj2 16:22 CRP Sent. aj2 17:05 CT Abd/Pelvis - IV Contrast Only In Process Unspecified. EDMS 17:44 Maco Han MD is Hospitalizing Provider. rn 21:56 Arm band placed on. wr Administered Medications: 16:00 Drug: Zofran (Ondansetron) 4 mg Route: IVP; Site: right antecubital; aj2 16:00 Drug: NS 0.9% 500 ml Route: IV; Rate: bolus; Site: right antecubital; aj2 17:41 CANCELLED (Duplicate Order): Aspirin 81 mg PO once rn 20:30 Drug: Metoprolol 25 mg Route: PO; wr 20:30 Drug: Eliquis (apixaban) 5 mg Route: PO; wr Outcome: 17:45 Decision to Hospitalize by Provider. rn 21:56 Admitted to Med/surg accompanied by tech, via wheelchair. wr 21:56 Discharge instructions given to 22:11 Patient left the ED. wr Signatures: Dispatcher [employer] EDMS Felipe Harris MD MD rn Moreno, Amanda am2 aMr Schmid, RN RN Brenna Blue2 Gino Tillman wr Corrections: (The following items were deleted from the chart) 14:46 14:37 PMHx: Diverticulitis; kg kg 14:46 14:37 PMHx: Colitis; kg kg
--- NOTE | 2021-06-02 17:46 | EDPHYS ---
Physician Documentation [facility] Name: Victoriano Coronel Age: 70 yrs Sex: Male : 1950 Arrival Date: 06/02/2021 Time: 14:29 Bed 24 Private MD: Maco Han C ED Physician Felipe Harris HPI: 06/02 15:14 This 70 yrs old Male presents to ER via Ambulatory with complaints of Chest rn Pain, abdominal pain. 15:14 The patient or guardian reports chest pain that is located primarily in the substernal rn area. Onset: 2 day(s) ago. The pain does not radiate. Associated signs and symptoms: Pertinent positives: abdominal pain, cough, dizziness, lightheadedness, nausea, vomiting, Pertinent negatives: syncope. The chest pain is described as a heaviness. Duration: The patient or guardian reports multiple episodes, that are intermittent, the episodes last approximately 15 minute(s). Modifying factors: The symptoms are alleviated by nothing. the symptoms are aggravated by cough, exertion. Severity of pain: At its worst the pain was moderate in the emergency department the pain has improved. The patient has not experienced similar symptoms in the past. The patient has not recently seen a physician. Patient reports 2 days of chest pain, substernal, nonradiating, lasts approximately 15 minutes. Also reports has congestion and cough, denies shortness of breath. Also having abdominal pain associated with nausea and vomiting which she attributes to food poisoning. Has been Covid vaccinated. Denies any hemoptysis. Denies history of atrial fibrillation. No syncope.. Historical: - Allergies: 14:37 No Known Allergies; kg - Home Meds: 14:37 hydralazine 50 mg Oral tab 1.5 tab TID [Active]; citalopram 20 mg tab 1 tab once daily kg [Active]; meloxicam 7.5 mg oral tab 1 tab once daily [Active]; doxazosin 1 mg oral tab 1 tab once daily [Active]; memantine 10 mg oral tab 1 tab 2 times per day [Active]; losartan 100 mg Oral tab 1 tab once daily [Active]; clondine 0.3mg every 8 hours [Active]; amlodipine 5 mg tab 1 tab once daily [Active]; metformin 500 mg Oral tab 2 times per day [Active]; atorvastatin 20 mg Oral tab 1 tab once daily [Active]; donepezil 5 mg oral tab 1 tab once daily [Active]; Klor-Con 10 10 mEq Oral TbER 1 tab once daily [Active]; [place] 5-325 mg Oral tab 1 tab every 6 hours [Active]; Symbicort 160-4.5 mcg/actuation inhalation HFAA [Active]; 14:45 tizanidine oral [Active]; kg - PMHx: 14:37 Hypertension; Hyperlipidemia; Diabetes - NIDDM; COPD; Dementia; Chronic back pain; kg - PSHx: 14:37 None; kg - Immunization history:: Adult Immunizations up to date, Client reports receiving the 2nd dose of the Covid vaccine, Date received: January 01, 2021 Client reports receiving the 1st dose of the Covid vaccine, December 04, 2020. - Social history:: Smoking status: Patient reports the use of cigarette tobacco products, Patient uses alcohol, occasionally. - Family history:: not pertinent. - Hospitalizations: : No recent hospitalization is reported. ROS: 15:14 Constitutional: Negative for fever, chills, and weight loss, Eyes: Negative for injury, rn pain, redness, and discharge, Neck: Negative for injury, pain, and swelling, Cardiovascular: Negative for palpitations, and edema, Respiratory: Negative for wheezing Abdomen/GI: Negative for constipation Back: Negative for injury and pain, : Negative for injury, bleeding, discharge, and swelling, MS/Extremity: Negative for injury and deformity, Skin: Negative for injury, rash, and discoloration, Neuro: Negative for headache, numbness, tingling, and seizure. 15:14 All other systems are negative. Exam: 15:14 Constitutional: This is a well developed, well nourished patient who is awake, alert, rn and in no acute distress. Head/Face: Normocephalic, atraumatic. Eyes: Periorbital areas with no swelling, redness, or edema. ENT: Dry mucous membranes, no stridor Cardiovascular: Tachycardic, irregularly irregular rhythm. Respiratory: Mild tachypnea, speaking full sentences. Abdomen/GI: Soft, no focal tenderness or masses palpated. Skin: Warm, dry, no cyanosis MS/ Extremity: Pulses equal, no cyanosis. Neuro: Awake and alert, GCS 15, oriented to person, place, and situation. Motor strength 4/5 in all extremities. Sensory grossly intact. Vital Signs: 14:34 BP 148 / 93; Pulse 109; Resp 20; Temp 98.4(O); Pulse Ox 96% on R/A; Weight 81.65 kg kg (R); Height 5 ft. 8 in. (172.72 cm) (R); Pain 8/10; 21:02 BP 158 / 96; Pulse 103; Resp 16; Temp 97; Pulse Ox 98% ; wr 14:34 Body Mass Index 27.37 (81.65 kg, 172.72 cm) kg MDM: 14:57 Patient medically screened. rn 17:42 Differential diagnosis: abnormal EKG, acute myocardial infarction, acute pericarditis, rn coronary artery disease congestive heart failure cholecystitis, Cholelithiasis costochondritis, esophagitis, gastritis, peptic ulcer disease, pericarditis, pleurisy, pneumonia, pneumothorax. HEART Score:. The patient was not given aspirin in the Emergency Department. NICOLAS Risk Score: 1 - patient's age is greater or equal to 65 years, 1 - Three or more CAD risk factors, [Family Hx], [HTN], [DM], 1 - Recent [<24hrs] Severe Angina, TOTAL SCORE = 3. Data reviewed: vital signs, nurses notes, lab test result(s), EKG, radiologic studies, CT scan, plain films, ultrasound, and as a result, I will admit patient. Data interpreted: pvc monitor: rate is 105 beats/min, rhythm is atrial fibrillation, with no ectopy, Interpretation: atrial fibrillation, Pulse oximetry: on room air is 96 %. Interpretation: normal. Counseling: I had a detailed discussion with the patient and/or guardian regarding: the historical points, exam findings, and any diagnostic results supporting the discharge/admit diagnosis, lab results, radiology results, the need for further work-up and treatment in the hospital. Response to treatment: the patient's symptoms have mildly improved after treatment, and as a result, I will admit patient. Admission orders: after a detailed discussion of the patient's condition and case, the admit orders are written by me. ED course: No acute findings and CT abdomen and pelvis. Troponin negative. No ischemia on ECG. ECG shows likely new onset atrial fibrillation. Consulted with Dr. Han, will admit, requests Eliquis 5 mg p.o. twice daily.. 06/02 15:10 Order name: Basic Metabolic Panel; Complete Time: 16:51 rn 06/02 15:10 Order name: CBC with Diff rn 06/02 15:10 Order name: LFT's; Complete Time: 16:51 rn 06/02 15:10 Order name: Magnesium; Complete Time: 16:51 rn 06/02 15:10 Order name: NT PRO-BNP; Complete Time: 16:51 rn 06/02 15:10 Order name: PT-INR; Complete Time: 16:51 rn 06/02 15:10 Order name: Troponin (emerg Dept Use Only); Complete Time: 16:51 rn 06/02 15:10 Order name: CRP; Complete Time: 16:51 rn 06/02 15:10 Order name: Ferritin; Complete Time: 16:51 rn 06/02 16:10 Order name: SARS-COV-2 RT PCR; Complete Time: 16:20 EDTX 06/02 18:24 Order name: CBC Smear Scan EDTX 06/02 19:55 Order name: Glucose, Ancillary Testing EDTX 06/02 20:36 Order name: Troponin I EDTX 06/02 15:10 Order name: IV Start; Complete Time: 16:22 rn 06/02 15:10 Order name: XRAY Chest (1 view); Complete Time: 16:51 rn 06/02 15:10 Order name: EKG; Complete Time: 15:11 rn 06/02 15:10 Order name: Cardiac monitoring; Complete Time: 16:21 rn 06/02 15:10 Order name: EKG - Nurse/Tech; Complete Time: 16:21 rn 06/02 15:10 Order name: Labs collected and sent; Complete Time: 16:21 rn 06/02 15:10 Order name: O2 Per Protocol; Complete Time: 16:21 rn 06/02 15:10 Order name: O2 Sat Monitoring; Complete Time: 16:21 rn 06/02 15:10 Order name: CT Abd/Pelvis - IV Contrast Only; Complete Time: 17:37 rn 06/02 16:52 Order name: US Abdomen Limited rn 06/02 19:03 Order name: EDMS Administered Medications: 16:00 Drug: Zofran (Ondansetron) 4 mg Route: IVP; Site: right antecubital; aj 16:00 Drug: NS 0.9% 500 ml Route: IV; Rate: bolus; Site: right antecubital; 17:41 CANCELLED (Duplicate Order): Aspirin 81 mg PO once rn 20:30 Drug: Metoprolol 25 mg Route: PO; wr 20:30 Drug: Eliquis (apixaban) 5 mg Route: PO; wr Disposition Summary: 06/02/21 17:45 Hospitalization Ordered Hospitalization Status: Inpatient Admission rn Provider: Maco Han rn Location: Telemetry/MedSurg (Inpatient) rn Condition: Stable rn Problem: new rn Symptoms: have improved rn Bed/Room Type: Standard rn Room Assignment: 201(06/02/21 19:56) mw Diagnosis - Unspecified atrial fibrillation rn - Chest pain, unspecified rn - Vomiting rn Forms: - Medication Reconciliation Form rn - SBAR form rn Signatures: Dispatcher [employer] EDMS Almita Collado RN RN Felipe Harris MD MD rn Graham, Kristen RN RN kg Brenna Bee [facility] Gino Tillman Corrections: (The following items were deleted from the chart) 14:46 14:37 PMHx: Diverticulitis; kg kg 14:46 14:37 PMHx: Colitis; kg kg 15:13 15:01 CORONAVIRUS+MR.LAB.BRZ ordered. EDTX EDMS 17:41 17:35 Aspirin 81 mg PO once ordered. rn rn 19:56 17:45 rn mw
[2021-06-02 18:23] LABS: Platelet Estimate ADEQ; White Blood Cell Scan OK (OK)
[2021-06-02 18:24] LABS: Anisocytosis 1+; Blood Morphology Comment NOTED (NOT SEEN); Poikilocytosis 2+
--- NOTE | 2021-06-02 19:01 | RAD REPORT ---
EXAM DESCRIPTION: US - Abdomen Exam Limited - 06/02/2021 6:41 pm CLINICAL HISTORY: eval for cholecystitis;Nausea / vomiting COMPARISON: Abdomen Pelvis W Contrast dated 06/02/2021 FINDINGS: No gallstones, sludge or other abnormalities within the gallbladder lumen on today's study . There is no wall thickening or pericholecystic fluid. No common duct stone or biliary tree dilatation identified. IMPRESSION: Normal gallbladder and biliary tree ultrasound.
[2021-06-02] MEDS ORDERED: ONDANSETRON 4 MG/2 ML VIAL IV PRN (19:33)
[2021-06-02 22:09] VITALS: BMI 27.3
[2021-06-03 05:56] LABS: Absolute Lymphocytes (CBC) 1.3 K/uL (0.7-4.9); Basophils % 0.2 % (0-1.3); Hematocrit 44.1 % (39.6-49.0); Lymphocytes % 14.3 % (15.3-44.8); MPV 8.3 fL (7.6-11.3); RBC Red Blood Cell Count 4.79 M/uL (4.33-5.43)
[2021-06-03] MEDS ORDERED: METOPROLOL TAR 25 MG TAB PO SCH (06:00)
[2021-06-03 06:08] LABS: Potassium 4.2 mmol/L (3.5-5.1)
[2021-06-03] MEDS ORDERED: APIXABAN 5 MG TABLET PO SCH (09:00)
--- NOTE | 2021-06-03 10:06 | EKG ---
Test Date: 2021-06-02 Test Time: 19:59:12 Wrapping Machine Helper: BROOK MEASUREMENT RESULTS: Intervals: Rate: 95 MO: 160 QRSD: 74 QT: 320 QTc: 402 [place]: P: 75 MO: 160 QRS: 56 T: 108 INTERPRETIVE STATEMENTS: Sinus rhythm with fusion complexes Anterior infarct, age undetermined Abnormal ECG Compared to ECG 06/02/2021 14:51:09 Fusion complex(es) now present Myocardial infarct finding now present Atrial fibrillation no longer present Ventricular premature complex(es) no longer present ST (T wave) deviation no longer present Electronically Signed On 06-03-21 10:04:41 CDT by Hakan Jensen
--- NOTE | 2021-06-03 10:07 | EKG ---
Test Date: 2021-06-02 Test Time: 14:51:09 Engineering Professionals: SINTIA MEASUREMENT RESULTS: Intervals: Rate: 96 IN: QRSD: 78 QT: 330 QTc: 416 [place]: P: IN: QRS: 62 T: 103 INTERPRETIVE STATEMENTS: Atrial fibrillation with premature ventricular or aberrantly conducted complexes Nonspecific ST and T wave abnormality, probably digitalis effect Abnormal ECG Compared to ECG 01/05/2021 03:58:06 Ventricular premature complex(es) now present ST (T wave) deviation now present Sinus rhythm no longer present T-wave abnormality no longer present Electronically Signed On 06-03-21 10:04:46 CDT by Hakan Jensen
[2021-06-03 12:21] VITALS: O2SAT 96
[2021-06-03 14:52] VITALS: BP 177/89; TEMP 98.5
--- NOTE | 2021-06-04 05:03 | SS ---
Date of Discharge: 06/03/2021 Chief Complaint: Chest pain, nausea, vomiting. History Of Present Illness: This is a 70-year-old male patient who was sitting outside for at least 6 to 8 hours in the hot weather and had about 6 beers and this was on Wednesday. He also ate food sallie t was brought to his house from outside. Later on, he started to have some stomach upset, nausea and vomiting type of feeling. Next day, which was on Wednesday, he started to have some chest pain off and on during daytime. He did not want to come to emergency room. On Wednesday, he continued to have all the symptoms and today finally he agreed to come to emergency room and after he was evaluated, he was noted to have atrial fibrillation with rapid ventricular rate around 110 to 120 beats per minute and he was admitted to the hospital. The patient has converted to sinus rhythm after his admission to [facility]. Allergies: NO KNOWN ALLERGIES. Medications: List reviewed. Review of Systems: Cardiovascular: As mentioned above. GI: As mentioned above. All other systems reviewed and negative. Past Medical History: Significant for Alzheimer disease, hypothyroidism, type 2 diabetes mellitus, C OPD, hypertension, hyperlipidemia, gallbladder polyp, erectile dysfunction, testicular hypofunction, osteoarthritis at multiple sites, anemia, insomnia, and hypokalemia. Past Surgical History: Negative. Family History: Father , had RI and hypertension. Mother , had diabetes. Brother, hyperten megan. Sister, hypertension. Social History: Prior history of smoking. Use of alcohol, occasional, 2 to 6 beers. Physical Examination: Vital Signs: Last temperature 98.5, pulse 82, respiratory rate 18, blood pressure 177/89, oxygen sat uration 93%. Height 5 feet 8 inches, weight 180 pounds. General: Awake, alert, oriented, not in distress. HEENT: Head atraumatic, normocephalic. Conjunctivae nonerythematous. Sclerae white. Mouth, no thr ush or edema noted. Ears/Nose, no mass, lesion, discharge noted. Neck: Supple. No JVD, lymph nodes, bruit, thyromegaly noted. Lungs: Bilateral good equal air entry. Clear to auscultation. No rhonchi. No rales. Heart: Normal heart sounds, no murmur or gallop. Abdomen: Soft, bowel sounds normal. No guarding, rigidity, tenderness, mass, hepatosplenomegaly, dis tention, or bruit noted. Extremities: No leg edema. No calf tenderness. Skin: No rash, ulcer, cellulitis. Lymphatics: No lymph node enlargement in neck, supraclavicular, infraclavicular region. Neuro: No focal neurological deficit. Chest: Unremarkable. External Genitalia: Deferred. Rectal: Deferred. Laboratory Data: Yesterday, white count 10.6, hemoglobin 15.1, platelets 237. Today, white count 9. 3, hemoglobin 14.7, platelets 241. Yesterday, sodium 137, potassium 4.3, chloride 103, bicarb 28, BU N 20, creatinine 1.18, glucose 165. Liver function test unremarkable except total bilirubin 1.2. Tr oponin less than 0.02 times three. CRP less than 2.9. ProBNP 917. Today, sodium 141, potassium 4.2 , chloride 106, bicarb 31, BUN 20, creatinine 1.1, glucose 132. His COVID-19 test negative. His ini tial EKG was atrial fibrillation with rapid ventricular rate. CAT scan of abdomen done in the emerge ncy room showed presence of diverticulosis without any evidence of diverticulitis. Small umbilical h ernia and degenerative changes of spine. No other acute findings noted on the CAT scan. Abdominal, right upper quadrant ultrasound was normal. Chest x-ray with no acute cardiopulmonary changes. EKG from today was sinus rhythm. Hospital Course: After the patient was admitted to the hospital, Cardiology consultation was obtaine d from Dr. Jensen, who evaluated the patient and from Cardiology point of view, he has released the patient to go home. Medically, the patient is stable for discharge. Echocardiogram was done, result pending, will follow up on outpatient basis. We will also request the patient to have followup with softball winder on outpatient basis. I did advise the patient not to have any alcohol at all and expla ined him reasoning behind alcohol use and increased chances of atrial fibrillation and obviously othe r complications due to alcohol. All those details were discussed with him. After I saw him, I did a dvise him to take his morning dose of amlodipine, losartan, and clonidine this morning as he had not taken any of his home medications. The patient was advised to go home with change in the medications as below, and he will see me as outpatient next week on Wednesday and he will see Dr. Jensen in the ne xt 2 to 3 weeks. Discharge Medications And Instructions: Continue all prior home medications except: 1.Stop meloxicam. 2.Stop doxazosin. 3.Lower hydralazine dose 50 mg, the patient to take 1 tablet by mouth 3 times a day (the patient was taking 1.5 tablets 3 times a day prior to this admission). 4.Start Eliquis 5 mg, take 1 tablet by mouth 2 times a day. 5.Start metoprolol 25 mg, take 1 tablet by mouth 2 times a day. 6.Follow up at my office next week on 06/09/2021. 7.Do not take any aspirin, Aleve, or Motrin type of medications. 8.The patient was advised to come to emergency room if he notices any bleeding alcohol. 9.Follow with Dr. Jensen in 2 to 3 weeks. Final Diagnoses: 1.Paroxysmal atrial fibrillation. 2.Hypertension. 3.Type 2 diabetes mellitus. 4.Hyperlipidemia. 5.Hypothyroidism. 6.Chronic obstructive pulmonary disease. 7.Osteoarthritis, multiple sites. JOHN/MODL Voice ID: [id number] Report ID: [id number]
--- NOTE | 2021-06-04 08:38 | ECHO ---
HEIGHT: 5 ft 8 in WEIGHT: 180 lb 0 oz DATE OF STUDY: 06/03/[address]: Hakan Jensen MD 2-DIMENSIONAL: YES M.MODE: YES DOPPLER: YES COLOR FLOW: YES TDS: NO PORTABLE: NO DEFINITY: NO BUBBLE STUDY: NO DIAGNOSIS: ATRIAL FIBRILLATION CARDIAC HISTORY: CATHERIZATION: NO SURGERY: NO PROSTHETIC VALVE: NO PACEMAKER: NO MEASUREMENTS (cm) DIASTOLIC (NORMALS) SYSTOLIC (NORMALS) IVSd 1.1 (0.6-1.2) LA Diam 3.2 (1.9-4.0) LVEF 65% LVIDd 2.4 (3.5-5.7) LVIDs 1.6 (2.0-3.5) %FS 34% LVPWd 1.1 (0.6-1.2) Ao Diam 2.7 (2.0-3.7) 2 DIMENSIONAL ASSESSMENT: RIGHT ATRIUM: NORMAL LEFT ATRIUM: NORMAL RIGHT VENTRICLE: NORMAL LEFT VENTRICLE: NORMAL TRICUSPID VALVE: NORMAL MITRAL VALVE: NORMAL PULMONIC VALVE: NORMAL AORTIC VALVE: NORMAL PERICARDIAL EFFUSION: NONE AORTIC ROOT: NORMAL LEFT VENTRICULAR WALL MOTION: NORMAL DOPPLER/COLOR FLOW: NORMAL COMMENTS: NORMAL 2D ECHOCARDIOGRAM WITH DOPPLER. NORMAL LEFT ATRIAL SIZE. NO THROMBUS. TECHNOLOGIST: Natalee MUÑIZ
== END 2021-06-03 16:00 | disposition home or self-care (01) ==
LOC: ER 14:28 → INTOOBSV 17:48 → ERHOLD 17:48 → 2ND 21:24
PROVIDERS: ADMIT Internal Medicine; ATTEND Internal Medicine
DX: I48.0 Paroxysmal atrial fibrillation (principal); I10 Essential (primary) hypertension; E11.9 Type 2 diabetes mellitus without complications; E78.5 Hyperlipidemia, unspecified; E03.9 Hypothyroidism, unspecified; J44.9 Chronic obstructive pulmonary disease, unspecified; M15.9 Polyosteoarthritis, unspecified; G30.9 Alzheimer's disease, unspecified; F02.80 Dementia in other diseases classified elsewhere, unspecified severity, without behavioral disturbance, psychotic disturbance, mood disturbance, and anxiety; N52.9 Male erectile dysfunction, unspecified; K82.4 Cholesterolosis of gallbladder; E29.1 Testicular hypofunction; D64.9 Anemia, unspecified; G47.00 Insomnia, unspecified; E87.6 Hypokalemia; K57.90 Diverticulosis of intestine, part unspecified, without perforation or abscess without bleeding; K42.9 Umbilical hernia without obstruction or gangrene; M54.9 Dorsalgia, unspecified; G89.29 Other chronic pain; Z20.822 Contact with and (suspected) exposure to COVID-19; F17.210 Nicotine dependence, cigarettes, uncomplicated; Z82.49 Family history of ischemic heart disease and other diseases of the circulatory system; Z83.3 Family history of diabetes mellitus
CPT/HCPCS: 93005 ×2; 93306; 85025 ×2; 80048 ×2; 36415; 83735; 85610; 82947 ×3; 80076; 84484 ×3; 82728; 83880; 86140; 74177; 71045; 76705; 96374; 99285; U0003; Q9967; J7040; J2405 ×2; G0378

== ENCOUNTER 2021-07-29 12:03 | Emergency (ER) | payer OTHER ==
[2021-07-29] MEDS ORDERED: NA CHLORIDE 0.9% 1,000 ML ONE (12:28)
[2021-07-29] MEDS ORDERED: ONDANSETRON 4 MG/2 ML VIAL ONE (12:32)
[2021-07-29] MEDS ORDERED: MORPHINE 2 MG/ML SYR ONE (12:32)
[2021-07-29 13:10] LABS: Albumin 3.7 g/dL (3.4-5.0); Bilirubin Direct 0.3 mg/dL (0-0.2); Bilirubin Total 1.3 mg/dL (0.2-1.0); Potassium 3.7 mmol/L (3.5-5.1); Protein, Total 6.4 g/dL (6.4-8.2)
[2021-07-29 13:15] LABS: Absolute Lymphocytes (CBC) 0.9 K/uL (0.7-4.9); Basophils % 0.8 % (0-1.3); Hematocrit 36.2 % (39.6-49.0); Lymphocytes % 13.2 % (15.3-44.8); MPV 9.4 fL (7.6-11.3); RBC Red Blood Cell Count 3.92 M/uL (4.33-5.43)
--- NOTE | 2021-07-29 13:49 | RAD REPORT ---
EXAM DESCRIPTION: CT - Abdomen Pelvis W Contrast - 07/29/2021 1:26 pm CLINICAL HISTORY: ABD PAIN COMPARISON: Abdomen Pelvis W Contrast dated 06/02/2021; Abdomen Pelvis W Contrast dated 01/05/2021 ; CT CHEST ABD PELVIS W CONTRAST dated 06/02/2012 TECHNIQUE: Biphasic, helical CT imaging of the abdomen and pelvis was performed following 100 ml non -ionic IV contrast. No oral contrast administered. All CT scans are performed using dose optimization technique as appropriate and may include automated exposure control or mA/KV adjustment according to patient size. FINDINGS: No suspicious findings in the lung bases. Liver size is normal with no focal liver lesions identifiable. No portal vein abnormality. Gallbladde r and biliary tree within normal limits. No splenic abnormality. No pancreatitis findings seen. In pancreatic head/ uncinate process junction there is a peripheral 10 mm rounded low-density mass (im age 27/85) not clearly different from May short interval study. This was not seen on the 2011 C T examination. Symmetric renal function is seen with no hydronephrosis or suspicious renal mass. Small bilateral jewel al cysts are present. No pyelonephritis or acute parenchymal process. Urinary bladder is mostly contr acted. No prostate gland or seminal vesicle significant finding. No adrenal abnormalities. No dilated bowel loops or bowel wall thickening. No appendicitis or other emergent abdominal finding. Diverticulosis is mild. No free air, free fluid or inflammatory stranding. No hernia, mass or bulky lymphadenopathy. Disc and bone degenerative changes are present at the L4-5 and L5-S1 levels. Endplate spurring change s are present. No acute bone process. Arterial tree calcifications are present. No acute vascular fin ding. IMPRESSION: Contrast enhanced CT abdomen and pelvis showing no acute or emergent finding. Small 10 mm cyst at the head/uncinate process junction of the pancreas needs monitoring with re-evalu ation in 1-2 years.
[2021-07-29 14:46] LABS: Urine Blood Negative (Negative); Urine Glucose Negative (Negative); Urine Protein Negative (Negative); Urine Specific Gravity <=1.005 (1.005-1.030); Urine pH 5.5 (5.0-7.0)
--- NOTE | 2021-07-29 15:38 | ER ---
Nurse's Notes [facility] Name: Victoriano Coronel Age: 70 yrs Sex: Male : 1950 Arrival Date: 07/29/2021 Time: 12:05 Bed 5 Private MD: Maco Han C Diagnosis: Abdominal pain. Gastroenteritis Presentation: 07/29 12:07 Chief complaint: Chief complaint: Pt's reports vomiting and diarrhea since aa5 Wednesday. Pt's states "the vomiting, diarrhea, and constipation has been on and off for a year and they can't figure out what is wrong". 12:07 Acuity: JAVI 3 aa5 12:07 Coronavirus screen: diarrhea, vomiting. Ebola Screen: No symptoms or risks identified aa5 at this time. Initial Sepsis Screen: Does the patient meet any 2 criteria? No. Patient's initial sepsis screen is negative. Does the patient have a suspected source of infection? No. Patient's initial sepsis screen is negative. Risk Assessment: Do you want to hurt yourself or someone else? Patient reports no desire to harm self or others. Onset of symptoms was July 2021. 12:07 Method Of Arrival: Ambulatory aa5 Historical: - Allergies: 12:07 No Known Allergies; aa5 - PMHx: 12:07 chronic back pain; COPD; Dementia; Diabetes - NIDDM; Hyperlipidemia; Hypertension; aa5 - Immunization history:: Client reports receiving the 2nd dose of the Covid vaccine. - Social history:: Smoking status: Patient denies any tobacco usage or history of. Screenin:13 Abuse screen: Denies threats or abuse. Nutritional screening: No deficits noted. ll1 Tuberculosis screening: No symptoms or risk factors identified. Fall Risk IV access (20 points). Gait- Weak (10 pts.). Total Arroyo Fall Scale indicates Low Risk Score (25-44 pts). Fall prevention measures have been instituted. Side Rails Up X 2 Frequent Obs/Assesments occuring As available Patient and Family Educated on Fall Prevention Program and strategies. Assessment: 12:58 General: Appears in no apparent distress. Behavior is calm. Pain: Complains of pain in ll1 back Pain currently is 2 out of 10 on a pain scale. Quality of pain is described as aching, Aggravated by repositioning. Neuro: No deficits noted. Cardiovascular: No deficits noted. Respiratory: No deficits noted. GI: Reports diarrhea, epigastric pain, nausea, vomiting, since 1 year. 14:00 Reassessment: No changes from previously documented assessment. ll1 16:00 Reassessment: Patient and/or family updated on plan of care and expected duration. Pain ll1 level reassessed. Patient denies pain at this time. Patient states feeling better. Vital Signs: 12:07 BP 142 / 67; Pulse 46; Resp 18 S; Temp 97.6(TE); Pulse Ox 98% ; Weight 81.65 kg (R); aa5 Height 5 ft. 8 in. (172.72 cm) (R); 12:53 BP 138 / 60; ll1 12:53 BP 138 / 60; Pulse 80; Resp 18; Pulse Ox 97% ; ll1 15:30 BP 155 / 75; Pulse 54; Resp 18; Pulse Ox 97% ; ll1 12:07 Body Mass Index 27.37 (81.65 kg, 172.72 cm) aa5 ED Course: 12:05 Patient arrived in ED. as 12:05 Maco Han MD is Private Physician. as 12:07 Arm band placed on. aa5 12:10 Triage completed. aa5 12:13 Kathy Kearns, JUNG is Primary Nurse. ll1 12:13 Patient placed in an exam room, on a stretcher. ll1 12:13 Patient has correct armband on for positive identification. Bed in low position. Call ll1 light in reach. Side rails up X 1. Pulse ox on. NIBP on. 12:15 Kenneth Olivares MD is Attending Physician. pkl 12:40 Inserted saline lock: 20 gauge in left antecubital area, using aseptic technique. Blood ll1 collected. 13:26 CT Abd/Pelvis - IV Contrast Only In Process Unspecified. EDMS 15:36 Maco Han MD is Referral Physician. pkl 15:59 No provider procedures requiring assistance completed. IV discontinued, intact, ll1 bleeding controlled, No redness/swelling at site. Pressure dressing applied. Administered Medications: 12:51 Drug: morphine 2 mg Route: IVP; Site: left antecubital; ll1 14:50 Follow up: Response: No adverse reaction; Pain is decreased; RASS: Alert and Calm (0) ll1 12:52 Drug: NS 0.9% 500 ml Route: IV; Rate: bolus; Site: left antecubital; ll1 16:02 Follow up: Response: No adverse reaction; IV Status: Completed infusion; IV Intake: ll1 500ml 12:52 Drug: NS 0.9% 1000 ml Route: IV; Rate: 100 ml/hr; Site: left antecubital; ll1 16:01 Follow up: Response: No adverse reaction; IV Status: Order to discontinue infusion; IV ll1 Intake: 300ml 12:52 Drug: Zofran (Ondansetron) 4 mg Route: IVP; Site: left antecubital; ll1 14:50 Follow up: Response: No adverse reaction ll1 15:46 Drug: Cipro (ciprofloxacin) 500 mg Route: PO; ll1 16:01 Follow up: Response: No adverse reaction ll1 Intake: 16:01 IV: 300ml; Total: 300ml. ll1 16:02 IV: 500ml; Total: 800ml. ll1 Outcome: 15:37 Discharge ordered by . kenny 15:59 Discharged to home ambulatory. ll1 15:59 Condition: improved 15:59 Discharge instructions given to patient, family, Instructed on discharge instructions, follow up and referral plans. medication usage. 16:03 Patient left the ED. 1 Signatures: Dispatcher [employer] EDMS Kenneth Olivares MD MD pkl Martinez, Amelia as Calderon, Audri RN RN aa5 Kathy Kearns RN RN ll1 Corrections: (The following items were deleted from the chart) 12:10 12:07 Chief complaint: aa5 aa5 12:11 12:07 BP 142 / 67; Resp 18bpm; Spontaneous; Pulse Ox 98%; Temp 97.6F Temporal; 81.65 kg aa5 Reported; Height 5 ft. 8 in. Reported; BMI: 27.3; aa5 12:57 12:56 Inserted saline lock: 20 gauge in left antecubital area, using aseptic technique. 1 1
--- NOTE | 2021-07-29 15:38 | EDPHYS ---
Physician Documentation [facility] Name: Victoriano Coronel Age: 70 yrs Sex: Male : 1950 Arrival Date: 07/29/2021 Time: 12:05 Bed 5 Private MD: Maco Han C ED Physician Kenneth Olivares HPI: 07/29 12:31 This 70 yrs old Male presents to ER via Ambulatory with complaints of pkl Vomiting. 12:31 The patient presents to the emergency department with nausea, vomiting. Onset: The pkl symptoms/episode began/occurred 4 day(s) ago. Associated signs and symptoms: Pertinent positives: diarrhea, started about 1 week ago. Historical: - Allergies: 12:07 No Known Allergies; aa5 - PMHx: 12:07 chronic back pain; COPD; Dementia; Diabetes - NIDDM; Hyperlipidemia; Hypertension; aa5 - Immunization history:: Client reports receiving the 2nd dose of the Covid vaccine. - Social history:: Smoking status: Patient denies any tobacco usage or history of. ROS: 12:31 Eyes: Negative for injury, pain, redness, and discharge, ENT: Negative for injury, pkl pain, and discharge, Neck: Negative for injury, pain, and swelling, Cardiovascular: Negative for chest pain, palpitations, and edema, Respiratory: Negative for shortness of breath, cough, wheezing, and pleuritic chest pain. 12:31 Abdomen/GI: Positive for nausea, vomiting, and diarrhea. 12:31 Back: Negative for acute changes. 12:31 : Negative for urinary symptoms. 12:31 MS/extremity: Negative for acute changes. 12:31 Skin: Negative for rash. 12:31 Neuro: Negative for altered mental status, loss of consciousness. Exam: 12:34 Head/Face: Normocephalic, atraumatic. Eyes: Pupils equal round and reactive to light, pkl extra-ocular motions intact. Lids and lashes normal. Conjunctiva and sclera are non-icteric and not injected. Cornea within normal limits. Periorbital areas with no swelling, redness, or edema. ENT: Nares patent. No nasal discharge, no septal abnormalities noted. Tympanic membranes are normal and external auditory canals are clear. Oropharynx with no redness, swelling, or masses, exudates, or evidence of obstruction, uvula midline. Mucous membranes moist. Neck: Trachea midline, no thyromegaly or masses palpated, and no cervical lymphadenopathy. Supple, full range of motion without nuchal rigidity, or vertebral point tenderness. No Meningismus. Chest/axilla: Normal chest wall appearance and motion. Nontender with no deformity. No lesions are appreciated. Cardiovascular: Regular rate and rhythm with a normal S1 and S2. No gallops, murmurs, or rubs. Normal PMI, no JVD. No pulse deficits. Respiratory: Lungs have equal breath sounds bilaterally, clear to auscultation and percussion. No rales, rhonchi or wheezes noted. No increased work of breathing, no retractions or nasal flaring. 12:34 Abdomen/GI: Bowel sounds: normal, Palpation: soft, mild abdominal tenderness, in all quadrants. 12:34 Back: Exam negative for acute changes. 12:34 : Exam negative for acute changes. 12:34 Musculoskeletal/extremity: Exam is negative for acute changes. 12:34 Skin: Exam negative for rash. 12:34 Neuro: Orientation: is normal, Mentation: is normal, Cranial nerves: grossly normal, Motor: is normal. Vital Signs: 12:07 BP 142 / 67; Pulse 46; Resp 18 S; Temp 97.6(TE); Pulse Ox 98% ; Weight 81.65 kg (R); aa5 Height 5 ft. 8 in. (172.72 cm) (R); 12:53 BP 138 / 60; ll1 12:53 BP 138 / 60; Pulse 80; Resp 18; Pulse Ox 97% ; ll1 15:30 BP 155 / 75; Pulse 54; Resp 18; Pulse Ox 97% ; ll1 12:07 Body Mass Index 27.37 (81.65 kg, 172.72 cm) aa5 MDM: 12:15 Patient medically screened. pkl 15:32 Data reviewed: vital signs, nurses notes, lab test result(s), radiologic studies, CT pkl scan. ED course: Talked to Dr. Han, may go home and follow up in office in 1 to 2 days. 15:34 ED course: Patient feeling better Discussed lab and CT Scan results with patient. pkl Advised to follow up with Dr. Han in 1 to 2 days. patient understood instructions. 07/29 12:26 Order name: Basic Metabolic Panel; Complete Time: 13:38 pkl 11/09 12:26 Order name: CBC with Diff; Complete Time: 13:38 pkl 07/29 12:26 Order name: Hepatic Function; Complete Time: 13:38 pkl 07/29 12:26 Order name: Lipase; Complete Time: 13:38 pkl 07/29 12:30 Order name: Blood Culture Adult (2) pkl 07/29 12:30 Order name: Lactate; Complete Time: 13:38 pkl 07/29 12:30 Order name: CT Abd/Pelvis - IV Contrast Only; Complete Time: 14:06 pkl 07/29 14:46 Order name: Urine Dipstick-Ancillary; Complete Time: 15:38 EDMS 07/29 12:26 Order name: IV Saline Lock; Complete Time: 12:27 pkl 07/29 12:26 Order name: Labs collected and sent; Complete Time: 12:27 pkl 07/29 12:34 Order name: Urine Dipstick-Ancillary (obtain specimen); Complete Time: 14:49 pkl Administered Medications: 12:51 Drug: morphine 2 mg Route: IVP; Site: left antecubital; ll1 14:50 Follow up: Response: No adverse reaction; Pain is decreased; RASS: Alert and Calm (0) ll1 12:52 Drug: NS 0.9% 500 ml Route: IV; Rate: bolus; Site: left antecubital; ll1 16:02 Follow up: Response: No adverse reaction; IV Status: Completed infusion; IV Intake: ll1 500ml 12:52 Drug: NS 0.9% 1000 ml Route: IV; Rate: 100 ml/hr; Site: left antecubital; ll1 16:01 Follow up: Response: No adverse reaction; IV Status: Order to discontinue infusion; IV ll1 Intake: 300ml 12:52 Drug: Zofran (Ondansetron) 4 mg Route: IVP; Site: left antecubital; ll1 14:50 Follow up: Response: No adverse reaction ll1 15:46 Drug: Cipro (ciprofloxacin) 500 mg Route: PO; ll1 16:01 Follow up: Response: No adverse reaction ll1 Disposition Summary: 07/29/21 15:37 Discharge Ordered Location: Home pkl Problem: new pkl Symptoms: have improved pkl Condition: Stable pkl Diagnosis - Abdominal pain. Gastroenteritis pkl Followup: pkl - With: Maco Han MD - When: 1 - 2 days - Reason: Re-evaluation by your physician Discharge Instructions: - Discharge Summary Sheet pkl Forms: - Medication Reconciliation Form pkl - Thank You Letter pkl - Antibiotic Education pkl - Prescription Opioid Use pkl Prescriptions: - Zofran 4 mg Oral Tablet - take 1 tablet by ORAL route every 12 hours As needed; 10 tablet; Refills: 0, pkl Product Selection Permitted - Cipro 500 mg Oral Tablet - take 1 tablet by ORAL route every 12 hours for 7 days; 14 tablet; Refills: 0, pkl Product Selection Permitted Signatures: Dispatcher [employer] Kenneth Luis MD MD pkl Raiza Barillas, RN RN aa5 Kathy Kearns RN RN ll1
[2021-07-29] MEDS ORDERED: CIPROFLOXACIN HCL 500 MG TAB ONE (15:41)
[2021-07-29 16:55] VITALS: TEMP 97.6
[2021-07-29 16:56] VITALS: BP 138/60; O2SAT 97
== END 2021-07-29 16:03 | disposition home or self-care (01) ==
LOC: ER 12:03
DX: K52.9 Noninfective gastroenteritis and colitis, unspecified (principal)
CPT/HCPCS: 96361; 87040 ×2; 85025; 80048; 36415; 80076; 83605; 81003; 83690; 74177; 96375; 96374; 99284; Q9967; J2270; J7030; J2405

== ENCOUNTER 2021-12-12 16:33 | Emergency (ER) | payer OTHER ==
[2021-12-12] MEDS ORDERED: TETANUS & DIPHTHERIA TOX,ADULT 0.5 ML VIAL ONE (17:21)
--- NOTE | 2021-12-12 18:07 | RAD REPORT ---
EXAM DESCRIPTION: RAD - Tib Fib Left - 12/12/2021 5:26 pm CLINICAL HISTORY: Trauma to the leg COMPARISON: None. FINDINGS: No fracture is identified. There is no dislocation or periosteal reaction noted. No acute or suspicious bony finding. Small plantar spur is present. Soft tissue injury is present in the anterior lower leg with no retained foreign body. IMPRESSION: No acute bone abnormality seen. No foreign body in the soft tissues.
[2021-12-12] MEDS ORDERED: TRAMADOL 37.5mg/APAP 325mg PER TAB ONE (18:47)
--- NOTE | 2021-12-12 18:47 | ER ---
Nurse's Notes [facility] Name: Victoriano Coronel Age: 71 yrs Sex: Male : 1950 Arrival Date: 12/12/2021 Time: 16:35 Bed 24 Private MD: Maco Han C Diagnosis: Left Lower Leg Laceration Presentation: 12/12 16:58 Chief complaint: Patient states: Was doing yard work and cutting limbs, a tree branch ph scraped his L lower leg causing a skin tear/abrasion. states, " I was worried that it may need stitches so I brought him up here.". Coronavirus screen: Vaccine status: Patient reports receiving the 2nd dose of the covid vaccine. Ebola Screen: No symptoms or risks identified at this time. Initial Sepsis Screen: Does the patient meet any 2 criteria? No. Patient's initial sepsis screen is negative. Does the patient have a suspected source of infection? No. Patient's initial sepsis screen is negative. Risk Assessment: Do you want to hurt yourself or someone else? Patient reports no desire to harm self or others. Onset of symptoms was December 12, 2021. 16:58 Method Of Arrival: Ambulatory ph 16:58 Acuity: JAVI 4 ph Historical: - Allergies: 17:00 No Known Allergies; ph - Home Meds: 17:27 amlodipine 5 mg tab 1 tab once daily [Active]; atorvastatin 20 mg Oral tab 1 tab once lr4 daily [Active]; citalopram 20 mg tab 1 tab once daily [Active]; clondine 0.3mg every 8 hours [Active]; donepezil 5 mg Oral tab 1 tab once daily [Active]; doxazosin 1 mg Oral tab 1 tab once daily [Active]; hydralazine 50 mg Oral tab 1.5 tab TID [Active]; Klor-Con 10 10 mEq Oral TbER 1 tab once daily [Active]; losartan 100 mg Oral tab 1 tab once daily [Active]; meloxicam 7.5 mg Oral tab 1 tab once daily [Active]; memantine 10 mg Oral tab 1 tab 2 times per day [Active]; metformin 500 mg Oral tab 2 times per day [Active]; Symbicort 160-4.5 mcg/actuation inhalation HFAA [Active]; trazodone 100 mg Oral tab [Active]; - PMHx: 17:00 chronic back pain; COPD; Dementia; Diabetes - NIDDM; Hypertension; Hyperlipidemia; ph - Immunization history:: Adult Immunizations up to date. - Social history:: Smoking status: unknown. Screenin:26 Abuse screen: Denies threats or abuse. Nutritional screening: No deficits noted. lr4 Tuberculosis screening: No symptoms or risk factors identified. Fall Risk None identified. Assessment: 17:24 General: Appears in no apparent distress. comfortable, Behavior is calm, cooperative. lr4 Pain: Complains of pain in left vogt Pain currently is 8 out of 10 on a pain scale. Neuro: No deficits noted. Cardiovascular: No deficits noted. Respiratory: No deficits noted. Derm: Skin has skin tears on skin tear to L lower vogt Skin is pink, warm \\T\\ dry. Reports pain that is 8 out of 10 on a pain scale. Vital Signs: 16:58 BP 145 / 75; Pulse 64; Resp 18; Temp 98.6; Pulse Ox 95% on R/A; Weight 79.38 kg; Height ph 5 ft. 8 in. (172.72 cm); 16:58 Body Mass Index 26.61 (79.38 kg, 172.72 cm) ph ED Course: 16:35 Patient arrived in ED. mr 16:35 Maco Han MD is Private Physician. mr 16:54 Anjum Mendieta PA is PHCP. m 16:54 Felipe Harris MD is Attending Physician. [facility] 17:00 Triage completed. ph 17:00 Arm band placed on Patient placed in an exam room. ph 17:13 Ellyn Adrian RN is Primary Nurse. lr4 17:21 Tib Fib Left XRAY Sent. lr4 17:27 Tib Fib Left XRAY In Process Unspecified. EDMS 17:27 No provider procedures requiring assistance completed. lr4 17:30 Patient has correct armband on for positive identification. Bed in low position. Call lr4 light in reach. Side rails up X 1. Adult w/ patient. 18:57 Patient did not have IV access during this emergency room visit. lr4 Administered Medications: 17:21 Drug: Tetanus-Diphtheria Toxoid Adult 0.5 ml {Propellant Charge Loader: Apro[employer]. Exp: lr4 02/07/2023. Lot #: [id number]. } Route: IM; Site: right deltoid; 17:24 Follow up: Response: No adverse reaction lr4 18:46 Drug: Ultracet (tramadol-acetaminophen) 1 tabs Route: PO; lr4 18:53 Follow up: Response: No adverse reaction lr4 Outcome: 17:27 Condition: stable lr4 18:47 Discharge ordered by MD. armstrong 18:57 Discharged to home ambulatory. lr4 18:57 Discharge instructions given to patient. 18:57 Patient left the ED. lr4 Signatures: Dispatcher [employer] EDMS Anjum Mendieta PA PA jmm Rivera, Mary Anayeli Olivera, RN RN Ellyn Pabon RN RN lr4 Corrections: (The following items were deleted from the chart) 17: 17:27 Home Meds: Hydrocodone; lr4 lr4 17:29 17:27 Home Meds: Barry 5-325 mg Oral tab 1 tab every 6 hours; lr4 lr4
--- NOTE | 2021-12-12 18:47 | EDPHYS ---
Physician Documentation [facility] Name: Victoriano Coronel Age: 71 yrs Sex: Male : 1950 Arrival Date: 12/12/2021 Time: 16:35 Bed 24 Private MD: Maco Han C ED Physician Felipe Harris HPI: 12/12 17:05 This 71 yrs old Male presents to ER via Ambulatory with complaints of Skin Tear(s). [facility] 17:05 The patient presents with an injury, pain, that is acute. The complaints affect the m left vogt. Onset: The symptoms/episode began/occurred acutely, just prior to arrival. This is a 71 year old male with a history of copd, dementia, dm, htn that presents to the ED with a laceration to the left lower extremity. Patient was using a chainsaw to cut down a limb. Limb hits his lower leg. Patient is unsure on tetanus immunization. . Historical: - Allergies: 17:00 No Known Allergies; ph - Home Meds: 17:27 amlodipine 5 mg tab 1 tab once daily [Active]; atorvastatin 20 mg Oral tab 1 tab once lr4 daily [Active]; citalopram 20 mg tab 1 tab once daily [Active]; clondine 0.3mg every 8 hours [Active]; donepezil 5 mg Oral tab 1 tab once daily [Active]; doxazosin 1 mg Oral tab 1 tab once daily [Active]; hydralazine 50 mg Oral tab 1.5 tab TID [Active]; Klor-Con 10 10 mEq Oral TbER 1 tab once daily [Active]; losartan 100 mg Oral tab 1 tab once daily [Active]; meloxicam 7.5 mg Oral tab 1 tab once daily [Active]; memantine 10 mg Oral tab 1 tab 2 times per day [Active]; metformin 500 mg Oral tab 2 times per day [Active]; Symbicort 160-4.5 mcg/actuation inhalation HFAA [Active]; trazodone 100 mg Oral tab [Active]; - PMHx: 17:00 chronic back pain; COPD; Dementia; Diabetes - NIDDM; Hypertension; Hyperlipidemia; ph - Immunization history:: Adult Immunizations up to date. - Social history:: Smoking status: unknown. ROS: 17:05 Constitutional: Negative for fever, chills, and weight loss, Cardiovascular: Negative [facility] for chest pain, palpitations, and edema, Respiratory: Negative for shortness of breath, cough, wheezing, and pleuritic chest pain. 17:05 MS/extremity: Positive for injury or acute deformity. 17:05 All other systems are negative. Exam: 17:05 Constitutional: This is a well developed, well nourished patient who is awake, alert, jmm and in no acute distress. Head/Face: atraumatic. Eyes: EOMI, no conjunctival erythema appreciated ENT: Moist Mucus Membranes Neck: Trachea midline, Supple Chest/axilla: Normal chest wall appearance and motion. Cardiovascular: Regular rate and rhythm. No edema appreciated Respiratory: Normal respirations, no respiratory distress appreciated Abdomen/GI: Non distended, soft Back: Normal ROM 17:05 Skin: laceration noted to the left lower extremity, approx 4 cm. 17:05 Neuro: Orientation: is normal, Mentation: is normal, Memory: is normal. 17:05 Psych: Behavior/mood is pleasant, cooperative. Vital Signs: 16:58 BP 145 / 75; Pulse 64; Resp 18; Temp 98.6; Pulse Ox 95% on R/A; Weight 79.38 kg; Height ph 5 ft. 8 in. (172.72 cm); 16:58 Body Mass Index 26.61 (79.38 kg, 172.72 cm) ph Laceration: 18:45 Wound Repair of 6cm ( 2.4in ) subcutaneous laceration to left vogt. Distal jmm neuro/vascular/tendon intact. Anesthesia: Local anesthetic administered with 5 mls of 1% lidocaine w/ Epi. Wound prep: Simple cleansing with betadine by me. Skin closed with 10 4-0 Prolene using simple sutures and sterile technique. Patient tolerated well. MDM: 17:03 Patient medically screened. [facility] 18:45 Data reviewed: vital signs, nurses notes. Counseling: I had a detailed discussion with [facility] the patient and/or guardian regarding: the historical points, exam findings, and any diagnostic results supporting the discharge/admit diagnosis, radiology results, the need for outpatient follow up, to return to the emergency department if symptoms worsen or persist or if there are any questions or concerns that arise at home. ED course: Patient given wound infection return precautions. Patient understood and agrees with the plan of care. . 12/12 17:04 Order name: Tib Fib Left XRAY; Complete Time: 18:09 [facility] Administered Medications: 17:21 Drug: Tetanus-Diphtheria Toxoid Adult 0.5 ml {It Program Auditor: [employer]. Exp: lr4 02/07/2023. Lot #: [id number]. } Route: IM; Site: right deltoid; 17:24 Follow up: Response: No adverse reaction lr4 18:46 Drug: Ultracet (tramadol-acetaminophen) 1 tabs Route: PO; lr4 18:53 Follow up: Response: No adverse reaction lr4 Disposition Summary: 12/12/21 18:47 Discharge Ordered Location: Home [facility] Condition: Stable [facility] Diagnosis - Left Lower Leg Laceration [facility] Followup: [facility] - With: Private Physician - When: 14 days - Reason: Staple/Suture removal Discharge Instructions: - Discharge Summary Sheet [facility] - Laceration Care, Adult [facility] Forms: - Medication Reconciliation Form [facility] - Thank You Letter [facility] - Antibiotic Education [facility] - Prescription Opioid Use [facility] Prescriptions: - Doxycycline Hyclate 100 mg Oral Tablet - take 1 tablet by ORAL route every 12 hours; 20 tablet; Refills: 0, Product [facility] Selection Permitted Addendum: 12/15/2021 19:24 Co-signature as Attending Physician, Felipe Harris MD. r n Signatures: Dispatcher [employer] Anjum Yusuf PA PA jmm Nieto, Roman, MD MD rn Hall, Patricia, RN RN ph Rogers, Lashaunda, RN RN lr4 Corrections: (The following items were deleted from the chart) 12/12 17:29 17:27 Home Meds: Hydrocodone; lr4 lr4 17:29 17:27 Home Meds: Warden 5-325 mg Oral tab 1 tab every 6 hours; lr4 lr4
[2021-12-12 19:06] VITALS: BP 145/75; TEMP 98.6; O2SAT 95
== END 2021-12-12 18:57 | disposition home or self-care (01) ==
LOC: ER 16:33
PROC: 0JQP0ZZ Repair Left Lower Leg Subcutaneous Tissue and Fascia, Open Approach (ICD-10-PCS; principal; 2021-12-12)
DX: S81.812A Laceration without foreign body, left lower leg, initial encounter (principal); Z23 Encounter for immunization; L08.9 Local infection of the skin and subcutaneous tissue, unspecified; W20.8XXA Other cause of strike by thrown, projected or falling object, initial encounter; Y93.89 Activity, other specified
CPT/HCPCS: 90471; 90714; 99283

== ENCOUNTER 2021-12-16 19:29 | Emergency (ER) | payer OTHER ==
--- NOTE | 2021-12-16 20:24 | ER ---
Nurse's Notes [facility] Name: Victoriano Coronel Age: 71 yrs Sex: Male : 1950 Arrival Date: 12/16/2021 Time: 19:32 Bed Waiting Private MD: Diagnosis: ED Course: 12/16 19:32 Patient arrived in ED. [email or web address] Administered Medications: No medications were administered Outcome: 20:23 Patient left the ED. lg3 Signatures: Emily Sanz RN RN lg3 Janae Feliciano [email or web address]
== END 2021-12-16 20:23 | disposition left against medical advice (07) ==
LOC: ER 19:29
DX: Z02.9 Encounter for administrative examinations, unspecified (principal)

== ENCOUNTER 2021-12-17 08:12 | Inpatient (IN) | payer OTHER ==
[2021-12-17] MEDS ORDERED: NA CHLORIDE 0.9% 250 ML ONE (08:40)
[2021-12-17] MEDS ORDERED: CEFTRIAXONE 1000 MG/VIAL ONE (08:40)
[2021-12-17] MEDS ORDERED: VANCOMYCIN 1 GM/VIAL ONE (08:40)
[2021-12-17 09:05] LABS: Hematocrit 36.9 % (39.6-49.0); Lymphocytes % 17.5 % (15.3-44.8); RBC Red Blood Cell Count 4.04 M/uL (4.33-5.43)
--- NOTE | 2021-12-17 09:16 | EDPHYS ---
Physician Documentation [facility] Name: Victoriano Coronel Age: 71 yrs Sex: Male : 1950 Arrival Date: 12/17/2021 Time: 08:14 Bed 15 Private MD: ED Physician Arash Celaya HPI: 12/17 08:34 This 71 yrs old Male presents to ER via Ambulatory with complaints of Suture Recheck. ms3 08:34 Patient presents to ED for recheck of: laceration. The affected area is on the left ms3 leg. Previous treatment: The patient was initially treated 5 day(s) ago, the care was rendered at [facility], Treatment type: The patient's original treatment included sutures. Progress: The patient reports decreased drainage, pain, redness, swelling. 71-year-old male with past medical history of chronic back pain, dementia, hypertension, diabetes presents for left lower extremity laceration that was repaired on 12/12/2021 after a tree branch fell lacerating his left vogt. Patient states his pain is a 2/10 and aching. Patient denies alleviating or inciting factors. Patient states he was started on doxycycline from the emergency department. Patient followed up with his primary care physician, Dr. Han, and was started on Augmentin. Despite antibiotic therapy patient cellulitis has continued to progress.. Historical: - Allergies: 08:24 No Known Allergies; ll1 - PMHx: 08:24 chronic back pain; Dementia; Hypertension; Diabetes - NIDDM; Hyperlipidemia; COPD; ll1 - Immunization history:: Client reports receiving the 2nd dose of the Covid vaccine. - Social history:: Smoking status: Patient/guardian denies using tobacco. ROS: 08:34 Constitutional: Negative for fever, and chills. Eyes: Negative for injury, pain, ms3 redness, and discharge, Neck: Negative for injury, pain, and swelling, Cardiovascular: Negative for chest pain, and palpitations. Respiratory: Negative for shortness of breath, cough, wheezing, and pleuritic chest pain, Abdomen/GI: Negative for abdominal pain, nausea, vomiting, diarrhea, and constipation, MS/Extremity: Negative for injury and deformity, Neuro: Negative for headache, weakness, numbness, tingling. Hematologic/Lymphatic: Negative for swollen nodes, abnormal bleeding, and unusual bruising. 08:34 Skin: Positive for cellulitis, laceration(s), swelling. Exam: 08:34 Constitutional: This is a well developed, well nourished patient who is awake, alert, ms3 and in no acute distress. Head/Face: Normocephalic, atraumatic. Chest/axilla: Normal chest wall appearance and motion. Nontender with no deformity. Cardiovascular: Regular rate and rhythm with a normal S1 and S2. No gallops, murmurs, or rubs. Normal PMI, no JVD. No pulse deficits. Respiratory: Lungs have equal breath sounds bilaterally, clear to auscultation and percussion. No rales, rhonchi or wheezes noted. No increased work of breathing, no retractions or nasal flaring. Abdomen/GI: Soft, non-tender, with normal bowel sounds. No distension or tympany. No guarding or rebound. No evidence of tenderness throughout. 08:34 Skin: cellulitis, that is moderate, on the left vogt. Vital Signs: 08:22 BP 176 / 95; Pulse 64; Resp 17; Temp 98.1; Pulse Ox 97% ; Weight 83.91 kg; Height 5 ft. ll1 8 in. (172.72 cm); Pain 5/10; 09:00 BP 186 / 79; Pulse 60; Resp 16 S; Pulse Ox 96% on R/A; Pain 5/10; jg9 12:00 BP 151 / 73; Pulse 58; Resp 17; Pulse Ox 96% ; jg9 08:22 Body Mass Index 28.13 (83.91 kg, 172.72 cm) ll1 MDM: 08:34 Differential diagnosis: cellulitis. Data reviewed: vital signs, nurses notes, lab test ms3 result(s). ED course: Discussed case with Dr Han and would like patient to have blood cultures, wound culture, Vancomycin and Rocephin. He will consult Dr Adrian.. 08:35 Patient medically screened. ms3 12/17 08:27 Order name: CBC with Diff; Complete Time: 12:04 3 12/17 08:27 Order name: BMP; Complete Time: 12:04 3 12/17 08:27 Order name: Blood Culture Adult (2) ms3 12/17 08:27 Order name: Wound Culture ms3 12/17 08:35 Order name: COVID-19 SARS RT PCR (Document "Date of Onset" if Symptomatic); Complete bd Time: 12:04 Administered Medications: 09:10 Drug: Rocephin (cefTRIAXone) 1 grams Route: IV; Rate: calculated rate; Site: right jg9 antecubital; 09:40 Follow up: IV Status: Completed infusion; IV Intake: 10ml jg9 09:12 Drug: vancoMYCIN 1 grams Route: IVPB; Infused Over: 2 hrs; Site: right antecubital; jg9 12:02 Follow up: IV Status: Completed infusion; IV Intake: 250ml jg9 09:39 Not Given (pharmacy called this med not availl): HYDROcodone-acetaminophen (5 mg-500 jg9 mg) 2 tabs PO once; RASS on ADMIN: Combtv4, Very Agttd3, Agttd2, Rstlss1, AlertClm0, Drwsy-1, Lt Sdtn-2, Mod Sdtn-3, Dp Sdtn-4, UnArsble-5 09:40 Drug: HYDROcodone-acetaminophen 5 mg-325 mg 2 tabs {Note: RASS-0.} Route: PO; jg9 10:00 Follow up: Response: No adverse reaction jg9 Disposition Summary: 12/17/21 09:15 Hospitalization Ordered Hospitalization Status: Inpatient Admission ms3 Provider: Maco Han ms3 Location: Telemetry/MedSur (Inpatient) ms3 Condition: Stable ms3 Problem: new ms3 Symptoms: are unchanged ms3 Bed/Room Type: Standard ms3 Room Assignment: 218(12/17/21 11:38) bd Diagnosis - Cellulitis of left lower limb ms3 - Laceration without foreign body, left lower leg ms3 - Essential (primary) hypertension ms3 Forms: - Medication Reconciliation Form ms3 - SBAR form ms3 Signatures: Dispatcher [employer] Maritza Chavarria Lynsay RN RN ll1 Arash Celaya DO DO ms3 Janae Mccabe RN RN jg9 Corrections: (The following items were deleted from the chart) 11:38 09:15 ms3 bd
--- NOTE | 2021-12-17 09:16 | ER ---
Nurse's Notes [facility] Name: Victoriano Coronel Age: 71 yrs Sex: Male : 1950 Arrival Date: 12/17/2021 Time: 08:14 Bed 15 Private MD: Diagnosis: Cellulitis of left lower limb;Laceration without foreign body, left lower leg;Essential (primary) hypertension Presentation: 12/17 08:22 Chief complaint: Patient states: Had sutures placed to LLE here 12/12. Site started to ll1 get red, swollen, draining yellow liquid since Wednesday. No fever. On two antibiotics currently, Dr. Han sent him in for further eval. Coronavirus screen: Vaccine status: Patient reports receiving the 2nd dose of the covid vaccine. Client denies travel out of the [place] in the last 14 days. At this time, the client does not indicate any symptoms associated with coronavirus-19. Ebola Screen: Patient denies travel to an Ebola-affected area in the 21 days before illness onset. Initial Sepsis Screen: Does the patient meet any 2 criteria? No. Patient's initial sepsis screen is negative. Does the patient have a suspected source of infection? Yes: Skin breakdown/wound. Risk Assessment: Do you want to hurt yourself or someone else? Patient reports no desire to harm self or others. Onset of symptoms was December 15, 2021. 08:22 Method Of Arrival: Ambulatory ll1 08:22 Acuity: JAVI 3 ll1 Triage Assessment: 08:24 General: Appears uncomfortable, Behavior is calm, cooperative, appropriate for age. ll1 Pain: Complains of pain in LLE Quality of pain is described as aching. Derm: Skin is red, Skin temperature is hot Wound noted LLE Reports pain. Historical: - Allergies: 08:24 No Known Allergies; ll1 - PMHx: 08:24 chronic back pain; Dementia; Hypertension; Diabetes - NIDDM; Hyperlipidemia; COPD; ll1 - Immunization history:: Client reports receiving the 2nd dose of the Covid vaccine. - Social history:: Smoking status: Patient/guardian denies using tobacco. Screenin:14 Abuse screen: Denies threats or abuse. Denies injuries from another. Nutritional jg9 screening: No deficits noted. Tuberculosis screening: No symptoms or risk factors identified. Fall Risk None identified. Assessment: 09:16 Reassessment: No changes from previously documented assessment. Patient and/or family jg9 updated on plan of care and expected duration. Pain level reassessed. Vital Signs: 08:22 BP 176 / 95; Pulse 64; Resp 17; Temp 98.1; Pulse Ox 97% ; Weight 83.91 kg; Height 5 ft. ll1 8 in. (172.72 cm); Pain 5/10; 09:00 BP 186 / 79; Pulse 60; Resp 16 S; Pulse Ox 96% on R/A; Pain 5/10; jg9 12:00 BP 151 / 73; Pulse 58; Resp 17; Pulse Ox 96% ; jg9 08:22 Body Mass Index 28.13 (83.91 kg, 172.72 cm) ll1 ED Course: 08:14 Patient arrived in ED. ds1 08:15 Arash Celaya DO is Attending Physician. ms3 08:20 Arm band placed on Patient placed in an exam room, on a stretcher. ll1 08:24 Triage completed. ll1 08:34 aJnae Mccabe, JUNG is Primary Nurse. jg9 08:45 Inserted saline lock: 20 gauge in right antecubital area, using aseptic technique. jg9 Blood collected. 09:14 Maco Han MD is Hospitalizing Provider. ms3 12:10 No provider procedures requiring assistance completed. jg9 12:10 Patient admitted, IV remains in place. jg9 12:11 Patient has correct armband on for positive identification. Bed in low position. Call jg9 light in reach. Side rails up X 1. Administered Medications: 09:10 Drug: Rocephin (cefTRIAXone) 1 grams Route: IV; Rate: calculated rate; Site: right j9 antecubital; 09:40 Follow up: IV Status: Completed infusion; IV Intake: 10ml jg9 09:12 Drug: vancoMYCIN 1 grams Route: IVPB; Infused Over: 2 hrs; Site: right antecubital; jg9 12:02 Follow up: IV Status: Completed infusion; IV Intake: 250ml jg9 09:39 Not Given (pharmacy called this med not availl): HYDROcodone-acetaminophen (5 mg-500 jg9 mg) 2 tabs PO once; RASS on ADMIN: Combtv4, Very Agttd3, Agttd2, Rstlss1, AlertClm0, Drwsy-1, Lt Sdtn-2, Mod Sdtn-3, Dp Sdtn-4, UnArsble-5 09:40 Drug: HYDROcodone-acetaminophen 5 mg-325 mg 2 tabs {Note: RASS-0.} Route: PO; jg9 10:00 Follow up: Response: No adverse reaction jg9 Intake: 09:40 IV: 10ml; Total: 10ml. jg9 12:02 IV: 250ml; Total: 260ml. jg9 Outcome: 09:15 Decision to Hospitalize by Provider. ms3 12:10 Admitted to Med/surg accompanied by nurse, via stretcher, room 218, Report called to andi Delgadillo RN 12:10 Condition: stable 12:11 Patient left the ED. jg9 Signatures: Janelle Mckeon ds1 Kathy Kearns, RN RN ll1 Arash Celaya DO DO ms3 Janae Mccabe, RN RN jg9
[2021-12-17 09:24] LABS: Potassium 3.8 mmol/L (3.5-5.1)
[2021-12-17] MEDS ORDERED: HYDROCODONE/APAP 5/325 MG TAB ONE (09:41)
[2021-12-17] MEDS ORDERED: HYDROCODONE/APAP 5/325 MG TAB PO ONE (10:00)
[2021-12-17 11:23] VITALS: BMI 28.1
[2021-12-17] MEDS ORDERED: ACETAMINOPHEN 500 MG TAB PO PRN (12:05)
[2021-12-17] MEDS ORDERED: GLUCAGON 1 MG/VIAL IM PRN (12:05)
[2021-12-17] MEDS: INSULIN -REGULAR HUMAN 50 UNIT/0.5 ML ML SQ SCH ×3 (12:05→20:44)
[2021-12-17] MEDS ORDERED: D50W 25 GM/50 ML SYRINGE IV PRN (12:05)
[2021-12-17] MEDS ORDERED: D10W 125 ML IV PRN (12:17)
[2021-12-17] MEDS ORDERED: BUPIVACAINE 0.5% PF 10 ML VIAL ONE (13:54)
[2021-12-17] MEDS ORDERED: FENTANYL CITR 100 MCG/2 ML ONE (14:08)
[2021-12-17] MEDS ORDERED: LIDOCAINE 1% MPF 5 ML VIAL ONE (14:08)
[2021-12-17] MEDS ORDERED: propofoL 200 MG/20 ML VIAL IV ONE (14:08)
[2021-12-17] MEDS ORDERED: NA CHLORIDE 0.9% 1,000 ML ONE (14:09)
[2021-12-17] MEDS ORDERED: CEFAZOLIN SODIUM 1 GM/VIAL ONE (14:09)
--- NOTE | 2021-12-17 14:10 | P.CNS ---
Date of Consult: 12/17/21 Reason for consult: Infected wound left leg History of present illness: 71-year-old gentleman had a injury while working in the yard 6 days ago. He sustained a laceration and went to the emergency room. Patient had sutures placed after the wound was washed out. He was placed on antibiotics and followed up with Dr. Han earlier this week. Dr. Han saw that the wound was a little red and added Augmentin to the antibiotics patient was currently on. However, patient wound kept getting more and more red and tender. He contacted Dr. Han's office and was instructed to go to the emergency room. He was found to have significant cellulitis with possible abscess in the wound. I was consulted to evaluate this patient. Patient denies any fever or chills, chest pain, sore throat, runny nose, headaches or dizziness. Review of systems: Otherwise unremarkable Past medical history: Hypertension, hyperlipidemia, Alzheimer's dementia and diabetes type 2 Past surgical history: Patient denies Allergies: None Social history: Former smoker, occasionally drinks alcohol Family history: Hypertension heart disease and diabetes Vital signs: Vital signs are stable and patient is afebrile Physical exam: Patient is awake and alert oriented x3 Head and neck exam: Cranial nerves II through XII grossly within normal limits, throat clear, neck supple, no JVD or neck masses Chest: Clear Heart: S1-S2 Abdomen: Soft, nondistended, nontender, positive bowel sounds Extremity: Neurovascularly intact with palpable dorsalis pedis and posterior tibial pulses. On the left anterior leg there is a V-shaped wound approximately 8 x 10 cm with multiple sutures in place. There is erythema warmth and edema present around the incision and there is slight fluctuance under the flap. Neuro: Nonfocal Diagnostic data: Reviewed Assessment: Infected wound left leg with cellulitis and abscess Plan/recommendation: Admit, n.p.o., IV antibiotics and to the operating room for incision and drainage and debridement of this infected wound. Patient and understand risks benefits and alternatives and agreed to procedure. CC: Dr. Han's office
[2021-12-17] MEDS ORDERED: GLYCOPYRROLATE 0.2 MG/ML SYR ONE ×2 (14:52→14:59)
[2021-12-17] MEDS ORDERED: COLLAGENASE 30 GM OINTMENT TOP ONE (14:54)
--- NOTE | 2021-12-17 15:03 | P.OP ---
Foot Miter Operator: NONE,NONE Preoperative diagnosis: Infected wound left leg with cellulitis and abscess Postoperative diagnosis: Same Primary procedure: Incision, drainage and debridement of left leg infected wound Secondary procedure: Pulse irrigation Anesthesia: General Estimated blood loss: Minimal Specimen: Necrotic tissue and pus Findings: As above Operative Technique: Patient brought to the OR and placed in the supine position. General anesthesia began. Patient prepped and draped in usual sterile fashion. All sutures that were present were removed. Wound was open. Purulence was evacuated cultures were done. The wound edges were necrotic and they were debrided and sent to pathology. Pulse irrigation done and microscopic debris evacuated. Bleeding controlled with cautery. Wound loosely approximated with 3-0 chromic sutures. Small portion of the wound left open for secondary healing. Collagenase dressing applied. Patient tolerated the procedure in stable condition taken to recovery in good general condition. Complications: None Transferred to: Recovery Room Condition: Good
[2021-12-17] MEDS: MORPHINE 4 MG/ML SYR ONE ×6 (15:29→15:50)
[2021-12-17] MEDS ORDERED: MEPERIDINE HCL 25 MG/ML SYR ONE (15:30)
[2021-12-17] MEDS: HYDROCODONE/APAP 5/325 MG TAB PO PRN (19:48)
[2021-12-17] MEDS: CEFTRIAXONE 1,000 MG in NA CHLORIDE 0.9% 50 ML IVPB SCH (20:44)
[2021-12-17] MEDS: VANCOMYCIN 1.5 GM in NA CHLORIDE 0.9% 500 ML IVPB SCH (20:49)
[2021-12-17] MEDS ORDERED: AMLODIPINE 5 MG TAB PO ONE (21:24)
[2021-12-17] MEDS: cloNIDine HCL 0.1 MG TAB PO PRN (21:51)
[2021-12-17] MEDS: MORPHINE 2 MG/ML SYR IV PRN (21:53)
--- NOTE | 2021-12-18 05:32 | HP ---
Date of Admission: 12/17/2021 Chief Complaint: Left leg problem. History Of Present Illness: This is a 71-year-old male patient who lives at home injured his left le g on 12/13/2021 while working in his yard. Patient had large laceration and he went to emergency ian where sutures were applied and he was discharged to go home with oral doxycycline. He came to see me at office on 12/15/2021, and when I examined him, I was concerned about cellulitis in his left low er leg around the area of laceration in spite of being on doxycycline, so I advised him to continue d oxycycline, but also added Augmentin. He was given instruction to follow up with me next week, but a lso to contact me if problem gets any worse. Yesterday evening, patient's contacted me and info rmed me that his leg was getting worse and she started to notice some pus type of discharge coming ou t of the laceration. She was advised to bring patient to the emergency room and I also talked to sandy keith and advised him to do so. I did call emergency room physician last night and discussed all the details and requested evaluation. Patient did come to the emergency room, but within short time afte r he came, he left without being evaluated and this morning he returned back to emergency room. Afte r he was evaluated, he was admitted to the hospital. After his admission to the hospital, I did cont act general surgeon, Dr. Adrian, and surgical consultation was requested and Dr. Adrian after he evalua jabier he contacted me and informed me that he will take the patient to operating room today for debride ment and this procedure was done this afternoon and I saw the patient this evening after the procedur e. He was lying in room in his bed. Denied any other new complaints. Allergies: NO KNOWN ALLERGIES. Medications: List reviewed. Review of Systems: Dermatology: As mentioned above. All other systems reviewed and negative. Past Medical History: Significant for Alzheimer disease, hypertension, hypothyroidism, type 2 diabet es mellitus, COPD, hyperlipidemia, paroxysmal atrial fibrillation, gallbladder polyp, erectile dysfun ction, testicular hypofunction, osteoarthritis at multiple sites, anemia, insomnia, hypokalemia. Past Surgical History: Negative. Family History: Dad had NC and hypertension. Mother , had diabetes. Siblings with hypertension . Social History: Prior history of smoking. Use of alcohol occasional. Immunization History: Patient's first dose of COVID-19 vaccine was December 04, 2020 and second dose Ap 2020. Physical Examination: Last Vital Signs: Temperature 97.7, pulse 62, respiratory rate 18, blood pressure 169/78, oxygen sat uration 97%. Height 5 feet 8 inches, weight 184 pounds. General: Awake, alert, oriented, not in distress. HEENT: Head atraumatic, normocephalic. Conjunctivae nonerythematous. Sclerae white. Mouth, no thr ush or edema noted. Ears/Nose, no mass, lesion, discharge noted. Neck: Supple. No JVD, lymph nodes, bruit, thyromegaly noted. Lungs: Bilateral good equal air entry. Clear to auscultation. No rhonchi. No rales. Heart: Normal heart sounds, no murmur or gallop. Abdomen: Soft, bowel sounds normal. No guarding, rigidity, tenderness, mass, hepatosplenomegaly, dis tention, or bruit noted. Extremities: Left lower leg has surgical dressing present. Distal foot and toes show normal neurova scular status. Skin: No rash, ulcer, cellulitis. Lymphatics: No lymph node enlargement in neck, supraclavicular, infraclavicular region. Neuro: No focal neurological deficit. Chest: Unremarkable. External Genitalia: Deferred. Rectal: Deferred. Laboratory Data: White count 5.7, hemoglobin 12.2, and platelet count 211. Sodium 139, potassium 3. 8, chloride 107, bicarb 27, BUN 13, creatinine 1.03, glucose 150. COVID-19 test negative. Impression: 1.Cellulitis, left lower extremity. 2.Anemia, unspecified. 3.Type 2 diabetes mellitus. 4.Hypertension. 5.Hyperlipidemia. 6.Paroxysmal atrial fibrillation. 7.Hypothyroidism. 8.Alzheimer disease. 9.Chronic obstructive pulmonary disease. Plan: We will go ahead and admit patient to hospital for further evaluation and management of this p roblem. Patient is appropriate for inpatient and is expected to spend 2 midnights in hospital. Liz ent was advised to keep his left lower extremity elevated as he is doing it right now and he was inst ructed and shown how to keep moving his both feet at ankle level with flexion and extension to reduce chances of any blood clot. DVT prophylaxis will be given per order. Home medications will be trudy nued per order. We will continue empiric antibiotic, which is ceftriaxone and vancomycin per order. Follow up on wound culture and I will continue to follow up with Dr. Adrian from General Surgery. Pa in medications will be given per order. I will see him tomorrow for followup. Plan of treatment dis cussed with him. JOHN/MODL Voice ID: [id number]
[2021-12-18 05:45] LABS: Absolute Lymphocytes (CBC) 1.4 K/uL (0.7-4.9); Hematocrit 36.4 % (39.6-49.0); MPV 8.1 fL (7.6-11.3); RBC Red Blood Cell Count 4.01 M/uL (4.33-5.43)
[2021-12-18 05:58] LABS: Potassium 3.8 mmol/L (3.5-5.1)
[2021-12-18] MEDS ORDERED: DIPHENHYDRAMINE 25 MG TAB/CAP PO PRN (06:30)
[2021-12-18] MEDS: INSULIN -REGULAR HUMAN 50 UNIT/0.5 ML ML SQ SCH ×4 (07:30→20:23)
[2021-12-18] MEDS: DULERA 100/5 (MOMETASONE/FORMOTEROL) INHALER IH SCH ×2 (09:00→20:27)
[2021-12-18 09:15] VITALS: O2SAT 96
[2021-12-18] MEDS: HYDROCODONE/APAP 5/325 MG TAB PO PRN ×3 (10:04→22:34)
[2021-12-18] MEDS: DONEPEZIL HCL 5 MG TAB PO SCH (10:05)
[2021-12-18] MEDS: LOSARTAN POTASSIUM 50 MG TABLET PO SCH (10:05)
[2021-12-18] MEDS: CLONIDINE HCL 0.3 MG TAB PO SCH ×3 (10:05→20:20)
[2021-12-18] MEDS: POTASSIUM CL SA 10 MEQ TAB PO SCH (10:05)
[2021-12-18] MEDS: METFORMIN HCL 500 MG TAB PO SCH ×2 (10:05→20:21)
[2021-12-18] MEDS: CEFTRIAXONE 1,000 MG in NA CHLORIDE 0.9% 50 ML IVPB SCH ×2 (10:06→20:22)
[2021-12-18] MEDS: CITALOPRAM 10 MG TABLET PO SCH (10:06)
[2021-12-18] MEDS: MEMANTINE HCL 10 MG TABLET PO SCH ×2 (10:06→20:22)
[2021-12-18] MEDS: METOPROLOL TAR 50 MG TAB PO SCH ×2 (10:13→20:21)
[2021-12-18] MEDS: PANTOPRAZOLE 40MG TABLET PO SCH (11:29)
[2021-12-18] MEDS: cloNIDine HCL 0.1 MG TAB PO PRN (12:01)
[2021-12-18] MEDS: MORPHINE 2 MG/ML SYR IV PRN (12:02)
--- NOTE | 2021-12-18 14:28 | P.PN ---
Date of Service: 12/18/21 Subjective: Patient is awake and alert and in no acute distress. Left leg feels better. Objective: Vital signs are stable and patient is afebrile White count is normal, cultures are pending. Gram stain shows gram- negative benito and white cells. The redness and swelling on the left leg is much better. Wound is clean. Assessment: Status post incision, drainage and debridement left leg infected wound. Plan: Continue IV antibiotics and wound care as ordered. Once we have the sensitivity, then patient can be discharged home on appropriate oral antibiotics. Patient can follow-up with me in the wound healing center. CC: Dr. Han's office
[2021-12-18] MEDS: VANCOMYCIN 1.5 GM in NA CHLORIDE 0.9% 500 ML IVPB SCH (16:40)
[2021-12-18] MEDS: AMLODIPINE 5 MG TAB PO ONE ×2 (17:10→17:52)
[2021-12-18] MEDS ORDERED: CEFTRIAXONE 1000 MG/VIAL ONE (20:16)
[2021-12-18] MEDS ORDERED: NA CHLORIDE 0.9% 50 ML ONE (20:19)
[2021-12-18] MEDS ORDERED: ATORVASTATIN 20 MG TAB PO SCH (21:00)
[2021-12-18] MEDS: DOXAZOSIN 2 MG TAB PO SCH (22:35)
--- NOTE | 2021-12-18 23:53 | PN ---
Date of Progress Note: 12/18/2021 Subjective: The patient was seen this morning for followup. No new complaints or problems reported by him. Objective: General: Lying in bed, not in distress. Vital Signs: Reviewed. HEENT: Unremarkable. Lungs: Clear to auscultation. Heart: Sounds normal. Abdomen: Soft. Bowel sounds normal. No guarding, rigidity, tenderness, or distention. Extremities: Left lower extremity dressing present. Neurovascular status of left distal foot and to es normal. Laboratory Data: White count 6.3, hemoglobin 12.1, platelets 221. Sodium 140, potassium 3.8, chlori de 106, bicarb 27, BUN 13, creatinine 0.95, glucose 122. Impression: 1.Cellulitis, left leg. 2.Type 2 diabetes mellitus. 3.Anemia, unspecified. 4.Hypertension. Plan: The patient will continue current antibiotic. Wound culture result is pending. We will keep him in the hospital until final report is available, so we can decide culture specific antibiotic to be prescribed for outpatient use, which could be either oral or IV antibiotic depending on the cultur e results. All these details were discussed with the patient. Continue DVT prophylaxis. Continue c urrent antihypertensive medication. This afternoon, amlodipine 10 mg x1 dose was ordered as the nani ent's blood pressure was elevated and did not come down adequately with p.r.n. use of clonidine. So, we will start amlodipine along with other antihypertensive medications. I will see him tomorrow for fol lowup. JOHN/MODL Voice ID: [id number] Report ID: [id number]
[2021-12-19] MEDS: HYDROCODONE/APAP 5/325 MG TAB PO PRN ×2 (06:44→13:34)
[2021-12-19] MEDS: INSULIN -REGULAR HUMAN 50 UNIT/0.5 ML ML SQ SCH ×2 (07:30→11:30)
[2021-12-19 08:42] VITALS: BP 186/85; TEMP 97.8
[2021-12-19] MEDS ORDERED: AMLODIPINE 10 MG TAB PO SCH (09:00)
[2021-12-19] MEDS: PANTOPRAZOLE 40MG TABLET PO SCH (09:46)
[2021-12-19] MEDS: LOSARTAN POTASSIUM 50 MG TABLET PO SCH (09:46)
[2021-12-19] MEDS: METFORMIN HCL 500 MG TAB PO SCH (09:46)
[2021-12-19] MEDS: CLONIDINE HCL 0.3 MG TAB PO SCH ×2 (09:47→14:00)
[2021-12-19] MEDS: MEMANTINE HCL 10 MG TABLET PO SCH (09:47)
[2021-12-19] MEDS: DONEPEZIL HCL 5 MG TAB PO SCH (09:48)
[2021-12-19] MEDS: DOXAZOSIN 2 MG TAB PO SCH (09:48)
[2021-12-19] MEDS: CITALOPRAM 10 MG TABLET PO SCH (09:48)
[2021-12-19] MEDS: DULERA 100/5 (MOMETASONE/FORMOTEROL) INHALER IH SCH (09:49)
[2021-12-19] MEDS: POTASSIUM CL SA 10 MEQ TAB PO SCH (09:49)
[2021-12-19] MEDS: VANCOMYCIN 1.5 GM in NA CHLORIDE 0.9% 500 ML IVPB SCH (09:52)
[2021-12-19] MEDS: METOPROLOL TAR 50 MG TAB PO SCH (09:57)
--- NOTE | 2021-12-19 09:59 | P.PN ---
Date of Service: 12/19/21 Subjective: Patient is awake and alert and in no acute distress. Left leg feels better. Objective: Vital signs are stable and patient is afebrile Culture shows 2 bacteria's and sensitivities reviewed The redness and swelling on the left leg is much better. Wound is clean. Wound has minimal fibrin Assessment: Status post incision, drainage and debridement left leg infected wound. Plan: Wound care as ordered. Antibiotics per Dr. Han and we will add acetic acid quarter percent to clean the wound with as patient has Pseudomonas in the wound. Patient can follow-up with me in the wound healing center. CC: Dr. Han's office
[2021-12-19] MEDS: cloNIDine HCL 0.1 MG TAB PO PRN (14:11)
--- NOTE | 2021-12-20 03:53 | DS ---
Date of Discharge: 12/19/2021 Subjective: The patient was seen this morning for followup. No new complaints or problems reported by patient, lying in bed, not in distress. Objective: Vital Signs: Reviewed. HEENT: Unremarkable. Lungs: Clear to auscultation. Heart: Heart sounds normal. Abdomen: Soft, bowel sounds normal. No guarding, rigidity. No tenderness, distention. Extremities: Left lower anterior leg has V-shaped superficial laceration, clean base. No discharge. No bleeding. Skin: Surrounding skin has a faint pink discoloration with slight warmness. Overall, this is signif icantly better than a few days ago. There are no sutures. No discharge. No bleeding. Laboratory Data: Upon admission, white count 5.7, hemoglobin 12.2, platelets 211. Yesterday, white count 6.3, hemoglobin 12.1, and platelets 221. Upon admission, sodium 139, potassium 3.8, chloride 1 07, bicarb 27, BUN 13, creatinine 1.03, glucose 150. Hospital Course: 71-year-old pleasant male patient admitted to the hospital with worsening celluliti s of the left lower extremity. Please see dictated H and P for more information. After patient was evaluated in the ER, he was admitted to the hospital and he was started on empiric antibiotic vancomy beverley and ceftriaxone. Dr. Adrian from General Surgery was consulted and he did debridement of this lef t leg laceration and all the sutures that were present. He actually removed it and did not place any further sutures. Wound culture was sent and final report on the wound culture came back today, this is gram-negative rods sensitive to multiple different antibiotic including Levaquin, Cipr o, but doxycycline and Augmentin that he was taking prior to this admission does not appear on the li st of sensitivity. So our plan is to discharge him to go home today with oral Levaquin. Dr. Nguyễn iyer General Surgery has released him to go home when medically he is stable for discharge. During hospitalization, his blood pressure was extremely high and we added amlodipine and as of last h t I gave him some doxazosin also. Upon discharge, we will only send him home with new blood pressure medication as amlodipine along with instruction to continue all his previous home medications, we wi ll not give him any upon discharge and I will decide on outpatient basis what else needs t o be done for blood pressure control. Final Diagnoses: 1.Cellulitis, left leg. 2.Left leg laceration. 3.Hypertension, uncontrolled. 4.Anemia, unspecified. 5.Type 2 diabetes mellitus. 6.Hyperlipidemia. 7.Paroxysmal atrial fibrillation. 8.Hypothyroidism. 9.Alzheimer disease. 10.Chronic obstructive pulmonary disease. Discharge Medications And Instructions: 1.Continue all prior home medication except stop doxycycline and stop Augmentin. 2.Start Levaquin 500 mg daily for 10 days. 3.Daily wound care dressing changes as per instruction from Dr. Adrian. 4.Amlodipine 10 mg daily morning. 5.Follow up at my office next week. JOHN/MODL Voice ID: [id number] Report ID: [id number]
== END 2021-12-19 16:06 | disposition home or self-care (01) | DRG 863 ==
LOC: ER 08:12 → ERHOLD 08:45 → 2ND 11:55
PROVIDERS: ADMIT Internal Medicine; ATTEND Internal Medicine
PROC: 0H9LXZX Drainage of Left Lower Leg Skin, External Approach, Diagnostic (ICD-10-PCS; principal; 2021-12-17 14:45)
DX: T81.41XA Infection following a procedure, superficial incisional surgical site, initial encounter (principal); L03.116 Cellulitis of left lower limb; L02.416 Cutaneous abscess of left lower limb; S81.812A Laceration without foreign body, left lower leg, initial encounter; B96.5 Pseudomonas (aeruginosa) (mallei) (pseudomallei) as the cause of diseases classified elsewhere; I10 Essential (primary) hypertension; E11.9 Type 2 diabetes mellitus without complications; D64.9 Anemia, unspecified; E78.5 Hyperlipidemia, unspecified; I48.0 Paroxysmal atrial fibrillation; E03.9 Hypothyroidism, unspecified; G30.9 Alzheimer's disease, unspecified; F02.80 Dementia in other diseases classified elsewhere, unspecified severity, without behavioral disturbance, psychotic disturbance, mood disturbance, and anxiety; J44.9 Chronic obstructive pulmonary disease, unspecified; N52.9 Male erectile dysfunction, unspecified; K82.4 Cholesterolosis of gallbladder; E29.1 Testicular hypofunction; M15.9 Polyosteoarthritis, unspecified; G47.00 Insomnia, unspecified; M54.9 Dorsalgia, unspecified; G89.29 Other chronic pain; Z20.822 Contact with and (suspected) exposure to COVID-19; Z85.51 Personal history of malignant neoplasm of bladder; Z87.891 Personal history of nicotine dependence; Z82.49 Family history of ischemic heart disease and other diseases of the circulatory system; Z83.3 Family history of diabetes mellitus
CPT/HCPCS: 36415; 80048; 80202; 82947; 85025; 87040; 87070; 87075; 87077; 87186; 87205; 88302; 88304; 96365; 96366; 99285; J0690; J2175; J2270; J2704; J3010; J3370; J3535; J3590; J7030; J7040; J7050; U0003

== ENCOUNTER 2023-07-07 14:58 | Emergency (ER) | payer OTHER ==
[2023-07-07] MEDS ORDERED: ONDANSETRON 4 MG/2 ML VIAL ONE (16:00)
[2023-07-07] MEDS ORDERED: NA CHLORIDE 0.9% 1,000 ML ONE (16:00)
[2023-07-07] MEDS ORDERED: ALBUTEROL 2.5 MG/3 ML NEB SOL ONE (16:00)
[2023-07-07] MEDS ORDERED: IPRATROPIUM BROM 0.5MG/2.5ML ONE (16:01)
[2023-07-07 16:19] LABS: Absolute Lymphocytes (CBC) 2.4 K/uL (0.7-4.9); Lymphocytes % 34.8 % (15.3-44.8); MCV 90.8 fL (80-100); MPV 8.2 fL (7.6-11.3); Platelets 211 thou/uL (152-406); RBC Red Blood Cell Count 3.97 M/uL (4.33-5.43)
[2023-07-07 16:35] LABS: Bilirubin Direct 0.3 mg/dL (0-0.2); Bilirubin Indirect, Calculated 0.7 mg/dL (0.2-0.8); Magnesium 1.7 mg/dL (1.6-2.4); Potassium 4.1 mEq/L (3.5-5.1); Protein, Total 6.9 g/dL (6.4-8.2); Troponin High Sensitivity 8.9 pg/mL (<58.9)
--- NOTE | 2023-07-07 17:01 | EDPHYS ---
Physician Documentation [facility] Name: Victoriano Coronel Age: 72 yrs Sex: Male : 1950 Arrival Date: 07/07/2023 Time: 14:58 Bed 20 Private MD: ED Physician Santos Betancourt HPI: 07/07 17:35 This 72 yrs old Male presents to ER via Ambulatory with complaints of Bed sore, rt Dehydration, Loss of hunger. 17:35 Patient presents to the ED with nausea, poor p.o. intake. Patient does not have an rt appetite for about a week now. Patient does have a history of dementia sometimes forgets to eat. Otherwise states that he has somewhat weak, concern for dehydration. Denies other acute complaints at this time, symptoms are moderate in severity, no other aggravating or alleviating factors.. Historical: - Allergies: 15:07 No Known Allergies; mb9 - PMHx: 15:07 chronic back pain; COPD; Dementia; Diabetes - NIDDM; Hyperlipidemia; Hypertension; mb9 - PSHx: 15:07 None; mb9 - Immunization history:: Adult Immunizations up to date. - Social history:: Smoking status: Patient denies any tobacco usage or history of. - Family history:: not pertinent. ROS: 17:35 Unable to obtain ROS due to baseline dementia, rt Exam: 17:35 Constitutional: This is a well developed, well nourished patient who is awake, alert, rt and in no acute distress. Head/Face: Normocephalic, atraumatic. Chest/axilla: Normal chest wall appearance and motion. Nontender with no deformity. No lesions are appreciated. Cardiovascular: Regular rate and rhythm with a normal S1 and S2. No gallops, murmurs, or rubs. Normal PMI, no JVD. No pulse deficits. Respiratory: Lungs have equal breath sounds bilaterally, clear to auscultation and percussion. No rales, rhonchi or wheezes noted. No increased work of breathing, no retractions or nasal flaring. Abdomen/GI: Soft, non-tender, with normal bowel sounds. No distension or tympany. No guarding or rebound. No evidence of tenderness throughout. Skin: Warm, dry with normal turgor. Normal color with no rashes, no lesions, and no evidence of cellulitis. MS/ Extremity: Pulses equal, no cyanosis. Neurovascular intact. Full, normal range of motion. Neuro: Awake and alert, GCS 15, oriented to person, place, time, and situation. Cranial nerves II-XII grossly intact. Motor strength 5/5 in all extremities. Sensory grossly intact. Cerebellar exam normal. Normal gait. 17:35 ENT: Dry mucous membranes. 17:35 ECG was reviewed by the Attending Physician. Vital Signs: 15:04 BP 148 / 81; Pulse 77; Resp 18; Temp 98.4; Pulse Ox 97% on R/A; Weight 79.38 kg; Height mb9 5 ft. 8 in. ; Pain 10/10; 16:15 BP 139 / 69; Pulse 96; Resp 20; Pulse Ox 96% on ON AIR. NEB MASK GOING; db 16:30 BP 143 / 60; Pulse 93; Resp 18; Pulse Ox 95% on R/A; db 15:04 Body Mass Index 26.61 (79.38 kg, 172.72 cm) mb9 15:04 Pain Scale: Adult mb9 MDM: 15:17 Patient medically screened. rt 17:35 Differential Diagnosis Dehydration, electrolyte disturbance, dementia. Data reviewed: rt vital signs, nurses notes, lab test result(s), EKG, radiologic studies. Consideration of Admission/Observation Escalation of care including admission/observation considered. Management of patient was discussed with the following: Primary Care Provider: States 90 tablet, will follow patient in the office. I considered the following discharge prescriptions or medication management in the emergency department Medications were administered in the Emergency Department. See MAR. Independent interpretation of the following test(s) in the Emergency Department X-Ray: My interpretation is No pneumonia seen on interpretation of x-ray images. Test considered but Not performed: CT: No head trauma, at baseline mental status, no abdominal tenderness, CT scans negative. Care significantly affected by the following chronic conditions: Alzheimer's. Counseling: I had a detailed discussion with the patient and/or guardian regarding the historical points, exam findings, and any diagnostic results supporting the discharge/admit diagnosis, lab results, radiology results, the need for outpatient follow up, to return to the emergency department if symptoms worsen or persist or if there are any questions or concerns that arise at home. Response to treatment: the patient's symptoms have markedly improved after treatment. 07/07 15:32 Order name: Basic Metabolic Panel; Complete Time: 16:40 rt 07/07 15:32 Order name: CBC with Diff; Complete Time: 16:40 rt 07/07 15:32 Order name: LFT's; Complete Time: 16:40 rt 07/07 15:32 Order name: Magnesium; Complete Time: 16:40 rt 07/07 15:32 Order name: Troponin HS; Complete Time: 16:40 rt 07/07 15:32 Order name: CPK; Complete Time: 16:40 rt 07/07 15:32 Order name: XRAY Chest (1 view) rt 07/07 15:32 Order name: EKG; Complete Time: 15:33 rt 07/07 15:32 Order name: Cardiac monitoring; Complete Time: 16:19 rt 07/07 15:32 Order name: EKG - Nurse/Tech; Complete Time: 15:42 rt 07/07 15:32 Order name: IV Saline Lock; Complete Time: 16:19 rt 07/07 15:32 Order name: Labs collected and sent; Complete Time: 16:19 rt 07/07 15:32 Order name: O2 Per Protocol; Complete Time: 15:42 rt 07/07 15:32 Order name: O2 Sat Monitoring; Complete Time: 15:42 rt EC:35 Rate is 73 beats/min. Rhythm is regular, Normal Sinus Rhythm with No ectopy. QRS [place] rt is Normal. MT interval is normal. QRS interval is normal. QT interval is normal. No Q waves. Clinical impression: NSR w/ Non-specific ST/T Changes. Administered Medications: 15:50 Drug: DuoNeb Nebulize (3:1) (2.5 mg - 0.5 mg) 3 ml Nebulizer once Route: Nebulizer; db 17:04 Follow up: Response: No adverse reaction db 16:00 Drug: NS 0.9% IV 1000 ml IV at 1 bolus Per protocol; 1000 mL bolus Route: IV; Rate: 1 db bolus; Site: right antecubital; 17:05 Follow up: Response: No adverse reaction; IV Status: Completed infusion; IV Intake: db 1000ml 16:00 Drug: Ondansetron IVP 4 mg IVP once; over 2 minutes Route: IVP; Site: right antecubital;db 17:04 Follow up: Response: No adverse reaction db Disposition Summary: 07/07/23 17:01 Discharge Ordered Notes: Location: Home rt Problem: an ongoing problem rt Symptoms: have improved rt Condition: Stable rt Diagnosis - Dehydration rt Followup: rt - With: Massimo Han MD - When: 1 week - Reason: Discharge Instructions: - Discharge Summary Sheet rt - Dehydration, Elderly rt Forms: - Medication Reconciliation Form rt - Thank You Letter rt - Antibiotic Education rt - Prescription Opioid Use rt - Patient Portal Instructions rt - Leadership Thank You Letter rt Prescriptions: - ondansetron 4 mg Oral Tablet,disintegrating - take 1 tablet ORAL route every 6 hours for 3 days; 18 tablet; Refills: 0, rt Product Selection Permitted Signatures: Dispatcher [employer] Veronica Guillen, JUNG RN Kelley Vazquez RN RN mb9 Santos Betancourt MD MD rt
--- NOTE | 2023-07-07 17:01 | ER ---
Nurse's Notes [facility] Name: Victoriano Coronel Age: 72 yrs Sex: Male : 1950 Arrival Date: 07/07/2023 Time: 14:58 Bed 20 Private MD: Diagnosis: Dehydration Presentation: 07/07 15:04 Chief complaint: Patient states: "For the past few days, I've been nauseous on and off mb9 for days, throwing up, lack of appetite, bed sores that are irritated and maybe infected, and feel dehydrated.". Coronavirus screen:. Coronavirus screen: Vaccine status: Patient reports being unvaccinated. Ebola Screen: No symptoms or risks identified at this time. Initial Sepsis Screen: Does the patient meet any 2 criteria? No. Patient's initial sepsis screen is negative. Does the patient have a suspected source of infection? No. Patient's initial sepsis screen is negative. Risk Assessment: Do you want to hurt yourself or someone else? Patient reports no desire to harm self or others. Onset of symptoms was July 07, 2023 at 15:07. 15:04 Method Of Arrival: Ambulatory 9 15:04 Acuity: JAVI 3 mb9 Triage Assessment: 15:07 General: Appears uncomfortable, Behavior is cooperative. Pain: Complains of pain in mb9 back Pain does not radiate. Pain currently is 10 out of 10 on a pain scale. Quality of pain is described as throbbing, Pain began years ago. Is chronic. EENT: No signs and/or symptoms were reported regarding the EENT system. Neuro: Caraballo Agitation-Sedation Scale (RASS): 0 - Alert and Calm Level of Consciousness is awake, alert, obeys commands, Oriented to person, place, time, situation, Appropriate for age. Neuro: Reports weakness. Cardiovascular: Patient's skin is warm and dry. Respiratory: Airway is patent Respiratory effort is even, unlabored, Respiratory pattern is regular, symmetrical. GI: Reports nausea, vomiting. : No signs and/or symptoms were reported regarding the genitourinary system. Derm: Skin is pink, warm \\T\\ dry. Musculoskeletal: Range of motion: intact in all extremities. Historical: - Allergies: 15:07 No Known Allergies; mb9 - PMHx: 15:07 chronic back pain; COPD; Dementia; Diabetes - NIDDM; Hyperlipidemia; Hypertension; mb9 - PSHx: 15:07 None; mb9 - Immunization history:: Adult Immunizations up to date. - Social history:: Smoking status: Patient denies any tobacco usage or history of. - Family history:: not pertinent. Screenin:16 [facility] ED Fall Risk Assessment (Adult) History of falling in the last 3 months, db including since admission No falls in past 3 months (0 pts) Confusion or Disorientation No (0 pts) Intoxicated or Sedated No (0 pts) Impaired Gait No (0 pts) Mobility Assist Device Used No (0 pt) Altered Elimination No (0 pt) Score/Fall Risk Level 0 - 2 = Low Risk Oriented to surroundings, Maintained a safe environment. Abuse screen: Denies threats or abuse. Denies injuries from another. Nutritional screening: No deficits noted. Tuberculosis screening: No symptoms or risk factors identified. Assessment: 16:00 Reassessment: Patient appears in no apparent distress at this time. Patient and/or db family updated on plan of care and expected duration. Pain level reassessed. Patient is alert, oriented x 3, equal unlabored respirations, skin warm/dry/pink. FEELING WEAK. General: Appears in no apparent distress. comfortable, Behavior is calm, cooperative. General: Reports fatigue for. Neuro: Level of Consciousness is awake, alert, obeys commands, Oriented to person, place, time, situation. Respiratory: Airway is patent Respiratory effort is even, unlabored. 17:06 Reassessment: Patient appears in no apparent distress at this time. Patient and/or db family updated on plan of care and expected duration. Pain level reassessed. Patient is alert, oriented x 3, equal unlabored respirations, skin warm/dry/pink. 17:16 Reassessment: Patient appears in no apparent distress at this time. Patient and/or db family updated on plan of care and expected duration. Pain level reassessed. Patient is alert, oriented x 3, equal unlabored respirations, skin warm/dry/pink. Patient states feeling better. Patient states symptoms have improved. Vital Signs: 15:04 BP 148 / 81; Pulse 77; Resp 18; Temp 98.4; Pulse Ox 97% on R/A; Weight 79.38 kg; Height mb9 5 ft. 8 in. ; Pain 10/10; 16:15 BP 139 / 69; Pulse 96; Resp 20; Pulse Ox 96% on ON AIR. NEB MASK GOING; db 16:30 BP 143 / 60; Pulse 93; Resp 18; Pulse Ox 95% on R/A; db 15:04 Body Mass Index 26.61 (79.38 kg, 172.72 cm) mb9 15:04 Pain Scale: Adult mb9 ED Course: 15:02 Patient arrived in ED. im 15:04 Santos Betancourt MD is Attending Physician. rt 15:04 Arm band placed on. mb9 15:07 Triage completed. mb9 15:43 Veronica Coe, RN is Primary Nurse. db 15:59 Inserted saline lock: 22 gauge in right antecubital area, using aseptic technique. db Blood collected. 16:10 Patient has correct armband on for positive identification. Bed in low position. Call db light in reach. Side rails up X2. Client placed on continuous cardiac and pulse oximetry monitoring. NIBP monitoring applied. Warm blanket given. 16:16 XRAY Chest (1 view) In Process Unspecified. EDMS 17:00 Massimo Han MD is Referral Physician. rt 17:16 Provided Education on: DISCHARGE. db 17:16 No provider procedures requiring assistance completed. IV discontinued, intact, db bleeding controlled, No redness/swelling at site. Administered Medications: 15:50 Drug: DuoNeb Nebulize (3:1) (2.5 mg - 0.5 mg) 3 ml Nebulizer once Route: Nebulizer; db 17:04 Follow up: Response: No adverse reaction db 16:00 Drug: NS 0.9% IV 1000 ml IV at 1 bolus Per protocol; 1000 mL bolus Route: IV; Rate: 1 db bolus; Site: right antecubital; 17:05 Follow up: Response: No adverse reaction; IV Status: Completed infusion; IV Intake: db 1000ml 16:00 Drug: Ondansetron IVP 4 mg IVP once; over 2 minutes Route: IVP; Site: right antecubital;db 17:04 Follow up: Response: No adverse reaction db Medication: 16:15 VIS not applicable for this client. db Intake: 17:05 IV: 1000ml; Total: 1000ml. db Outcome: 17:01 Discharge ordered by . rt 17:16 Discharged to home ambulatory, with family, db 17:16 Condition: stable 17:16 Discharge instructions given to patient, Instructed on discharge instructions, follow up and referral plans. Prescriptions given X 1, 17:17 Patient left the ED. db Signatures: Dispatcher [employer] Veronica Guillen, JUNG RN Kelley Vazquez RN RN mb9 Santos Betancourt MD MD rt Hannah Crisostomo Corrections: (The following items were deleted from the chart) 15:13 15:04 BP 148 / 81; Pulse 77bpm; Resp 18bpm; Pulse Ox 97% RA; Temp 98.4F; 79.38 kg; mb9 Height 5 ft. 58 in.; BMI: 8.84; Pain 10/10, Adult; mb9
--- NOTE | 2023-07-07 17:56 | RAD REPORT ---
EXAM DESCRIPTION: RADChest Single View07/07/2023 4:14 pm CLINICAL HISTORY: weakness COMPARISON: Chest Pa And Lat (2 Views) dated 09/08/2022; Chest Single View dated 06/02/2021; Chest Si ngle View dated 01/05/2021; Chest Pa And Lat (2 Views) dated 07/25/2019 TECHNIQUE: Portable AP view of the chest. FINDINGS: The lungs are clear. No pneumothorax or effusion. The cardiomediastinal contours are unre markable. IMPRESSION: No acute cardiopulmonary process.
[2023-07-07 19:23] VITALS: TEMP 98.4
[2023-07-07 19:25] VITALS: BP 143/60; O2SAT 95
--- NOTE | 2023-07-08 13:38 | EKG ---
Test Date: 2023-07-07 Test Time: 15:44:28 Galley Stripper: MELODIE MEASUREMENT RESULTS: Intervals: Rate: 73 AK: 180 QRSD: 88 QT: 370 QTc: 407 Needles: P: 83 AK: 180 QRS: 63 T: 133 INTERPRETIVE STATEMENTS: Normal sinus rhythm ST & T wave abnormality, consider lateral ischemia Abnormal ECG Compared to ECG 06/02/2021 19:59:12 ST (T wave) deviation now present Possible ischemia now present Fusion complex(es) no longer present Myocardial infarct finding no longer present Electronically Signed On 07-08-23 13:36:47 CDT by Torrey Hale
== END 2023-07-07 17:17 | disposition home or self-care (01) ==
LOC: ER 14:58
DX: E86.0 Dehydration (principal); F03.90 Unspecified dementia, unspecified severity, without behavioral disturbance, psychotic disturbance, mood disturbance, and anxiety; I10 Essential (primary) hypertension; E11.9 Type 2 diabetes mellitus without complications; J44.9 Chronic obstructive pulmonary disease, unspecified; Z28.310 Unvaccinated for COVID-19
CPT/HCPCS: 85025; 80048; 36415; 83735; 82550; 80076; 84484; 71045; J7613; J7644; J2405; J7030; 93005

== ENCOUNTER → 2023-11-11 | Emergency (ER) | payer OTHER ==
[~2023-11-11] MED LIST: NA CHLORIDE 0.9% 1,000 ML ONE
--- NOTE | 2023-11-11 10:20 | RAD REPORT ---
EXAM DESCRIPTION: RAD - Chest Single View - 11/11/2023 10:08 am CLINICAL HISTORY: COPD Chest pain. COMPARISON: Chest Single View dated 07/07/2023; Chest Pa And Lat (2 Views) dated 09/08/2022; Chest S katerina View dated 06/02/2021; Chest Single View dated 01/05/2021 FINDINGS: Portable technique limits examination quality. The lungs are emphysematous but grossly clear. The heart is normal in size. No displaced fractures. IMPRESSION: No acute intrathoracic process suspected.
[2023-11-11 10:35] LABS: Hematocrit 35.3 % (39.6-49.0); Lymphocytes % 15.9 % (15.3-44.8); MCV 90.7 fL (80-100); MPV 8.8 fL (7.6-11.3); Platelets 222 thou/uL (152-406); RBC Red Blood Cell Count 3.89 M/uL (4.33-5.43)
[2023-11-11 11:05] LABS: Potassium 3.4 mEq/L (3.5-5.1)
[2023-11-11 11:58] LABS: Troponin High Sensitivity 7.2 pg/mL (<58.9)
--- NOTE | 2023-11-11 13:00 | EDPHYS ---
Physician Documentation [facility] Name: Victoriano Coronel Age: 73 yrs Sex: Male : 1950 Arrival Date: 11/11/2023 Time: 09:15 Bed 11 Private MD: ED Physician Micah Velasco HPI: 11/11 09:39 This 73 yrs old Male presents to ER via Ambulatory with complaints of Breathing ec2 Difficulty. 09:39 Patient arrives today for progression of his chronic conditions. Patient with history ec2 of COPD, family reports chronic shortness of breath. Patient also with progression of his poor p.o. intake, has been having some diarrheal symptoms, weight loss over the past 6 months. No issues with vomiting, no issues with abdominal pain. Has a history of dementia. Historical: - Allergies: 09:26 No Known Allergies; iw - PMHx: 09:26 Dementia; Hyperlipidemia; chronic back pain; Hypertension; Diabetes - NIDDM; COPD; iw - PSHx: 09:26 None; iw - Immunization history:: Adult Immunizations not up to date. - Social history:: Smoking status: Patient reports use of chewing tobacco. ROS: 09:39 Constitutional: as per hpi ec2 Exam: 09:39 Constitutional: GEN: NAD Head: atraumatic Eyes: EOMI Ears: External ears are ec2 normal. CV: regular rate LUNGS: no respiratory distress, no wheezes, rales, or rhonchi ABD: non-distended, soft, nontender, not guarding, not rigid SKIN: no evidence of rashes MSK: no evidence of trauma NEURO: moves all extremities equally Vital Signs: 09:24 BP 172 / 80; Pulse 86; Resp 16; Pulse Ox 95% on R/A; Weight 67.59 kg; Height 5 ft. 9 iw in. ; 13:31 BP 167 / 75; Pulse 91; Resp 20; Pulse Ox 95% ; bp 09:24 Body Mass Index 22.00 (67.59 kg, 175.26 cm) iw MDM: 09:36 Patient medically screened. ec2 09:39 Data reviewed: vital signs. ED course: Patient arrives today for evaluation of diarrhea ec2 and chronic shortness of breath. Examination remarkable for well-appearing nontoxic dividual with a reassuring abdominal examination. Will obtain lab work to evaluate for dehydration, renal dysfunction, electrolyte disturbances. Will obtain chest x-ray to evaluate for COPD exacerbation. Low suspicion for acute process causing the patient's symptoms today given the duration of the patient's symptoms.. 10:12 ED course: EKG independently reviewed and interpreted by me, shows normal sinus rhythm, ec2 rate of 70, no acute ST segment elevations, nonconcerning intervals, motion artifact noted.. 10:22 ED course: Chest x-ray shows no acute intrathoracic process.. ec2 10:54 ED course: CBC is reassuring.. ec2 12:00 ED course: Metabolic profile shows slight hypokalemia, BNP minimally elevated at 430, ec2 troponin within normal ranges. Ultimately patient with chronic constellation of symptoms and can follow-up outpatient with his primary care doctor. Will discharge home. Return precautions given. . 11/11 09:36 Order name: Basic Metabolic Panel; Complete Time: 11:59 ec2 11/11 09:36 Order name: CBC with Diff; Complete Time: 10:54 ec2 11/11 09:36 Order name: NT PRO-BNP; Complete Time: 11:59 ec2 11/11 09:36 Order name: Troponin HS; Complete Time: 11:59 ec2 11/11 09:36 Order name: XRAY Chest (1 view); Complete Time: 10:22 ec2 11/11 09:36 Order name: EKG; Complete Time: 09:36 ec2 11/11 09:36 Order name: Cardiac monitoring; Complete Time: 10:09 ec2 11/11 09:36 Order name: EKG - Nurse/Tech; Complete Time: 10:10 ec2 11/11 09:36 Order name: IV Saline Lock; Complete Time: 10:10 ec2 11/11 09:36 Order name: Labs collected and sent; Complete Time: 10:10 ec2 11/11 09:36 Order name: O2 Per Protocol; Complete Time: 10:10 ec2 11/11 09:36 Order name: O2 Sat Monitoring; Complete Time: 10:10 ec2 Administered Medications: 10:10 Drug: NS 0.9% IV 1000 ml IV at 1 bolus Per protocol; 1000 mL bolus Route: IV; Rate: 1 bp bolus; Site: right forearm; 13:33 Follow up: IV Status: Completed infusion; IV Intake: 1000ml bp Disposition Summary: 11/11/23 13:00 Discharge Ordered Notes: Location: Home ec2 Condition: Stable ec2 Diagnosis - Weakness ec2 - Diarrhea, unspecified ec2 - Dyspnea ec2 Followup: ec2 - With: Private Physician - When: - Reason: Re-evaluation by your physician Discharge Instructions: - Discharge Summary Sheet ec2 - Diarrhea, Adult ec2 Forms: - Medication Reconciliation Form ec2 - Thank You Letter ec2 - Antibiotic Education ec2 - Prescription Opioid Use ec2 - Patient Portal Instructions ec2 - Leadership Thank You Letter ec2 Signatures: Dispatcher [employer] Dona Panda, Jose Graham RN, RN RN Micah Zuluaga MD MD ec2
--- NOTE | 2023-11-11 13:00 | ER ---
Nurse's Notes [facility] Name: Victoriano Coronel Age: 73 yrs Sex: Male : 1950 Arrival Date: 11/11/2023 Time: 09:15 Bed 11 Private MD: Diagnosis: Weakness;Diarrhea, unspecified;Dyspnea Presentation: 11/11 09:24 Chief complaint: Spouse and/or significant other states: he has no appetite, has lost a iw lot of weight over past month or two, he has Alzheimer's , he seems to get SOB on exertion over past week, seems more lethargic over past couple days , he has had diarrhea for past couple , it comes and goes. Coronavirus screen: At this time, the client does not indicate any symptoms associated with coronavirus-19. Ebola Screen: Patient negative for fever greater than or equal to 101.5 degrees Fahrenheit, and additional compatible Ebola Virus Disease symptoms Patient denies exposure to infectious person. Patient denies travel to an Ebola-affected area in the 21 days before illness onset. No symptoms or risks identified at this time. Initial Sepsis Screen: Does the patient meet any 2 criteria? No. Patient's initial sepsis screen is negative. Does the patient have a suspected source of infection? No. Patient's initial sepsis screen is negative. Risk Assessment: Do you want to hurt yourself or someone else? Patient reports no desire to harm self or others. Onset of symptoms was October 2023. 09:24 Method Of Arrival: Ambulatory iw 09:24 Acuity: JAVI 3 iw Triage Assessment: 12:30 General: Appears in no apparent distress. Behavior is calm, cooperative, appropriate bp for age. 12:30 Pain: Denies pain. Respiratory: Reports shortness of breath Onset: The symptoms/episode bp began/occurred at an unknown time. the patient reports symptoms have resolved. Historical: - Allergies: 09:26 No Known Allergies; iw - PMHx: :26 Dementia; Hyperlipidemia; chronic back pain; Hypertension; Diabetes - NIDDM; COPD; iw - PSHx: :26 None; iw - Immunization history:: Adult Immunizations not up to date. - Social history:: Smoking status: Patient reports use of chewing tobacco. Screenin:31 [facility] ED Fall Risk Assessment (Adult) History of falling in the last 3 months, bp including since admission No falls in past 3 months (0 pts). Abuse screen: Denies threats or abuse. Denies injuries from another. Nutritional screening: No deficits noted. Tuberculosis screening: No symptoms or risk factors identified. Assessment: 12:30 General: SEE TRIAGE NOTE. bp 13:31 Reassessment: DC HOME AMBULATORY WITH FAMILY. Cardiovascular: Rhythm is sinus rhythm. bp Respiratory: Airway is patent Respiratory effort is even, unlabored, Breath sounds are coarse bilaterally. Vital Signs: 09:24 BP 172 / 80; Pulse 86; Resp 16; Pulse Ox 95% on R/A; Weight 67.59 kg; Height 5 ft. 9 iw in. ; 13:31 BP 167 / 75; Pulse 91; Resp 20; Pulse Ox 95% ; bp 09:24 Body Mass Index 22.00 (67.59 kg, 175.26 cm) iw ED Course: 09:22 Patient arrived in ED. mg5 09:25 Micah Velasco MD is Attending Physician. ec2 09:26 Triage completed. iw 09:27 Arm band placed on. iw 09:57 Jose Garcia, JUNG is Primary Nurse. bp 10:09 Inserted saline lock: 22 gauge in right forearm, using aseptic technique. Blood bp collected. 10:10 XRAY Chest (1 view) In Process Unspecified. EDMS 10:12 EKG done, by ED staff, reviewed by Micah Velasco MD. em1 13:31 Patient has correct armband on for positive identification. bp 13:31 No provider procedures requiring assistance completed. IV discontinued. bp Administered Medications: 10:10 Drug: NS 0.9% IV 1000 ml IV at 1 bolus Per protocol; 1000 mL bolus Route: IV; Rate: 1 bp bolus; Site: right forearm; 13:33 Follow up: IV Status: Completed infusion; IV Intake: 1000ml bp Medication: 13:31 VIS not applicable for this client. bp Intake: 13:33 IV: 1000ml; Total: 1000ml. bp Outcome: 13:00 Discharge ordered by MD. ec2 13:31 Discharged to home ambulatory, with family, bp 13:31 Condition: stable 13:31 Discharge instructions given to patient, family, Instructed on discharge instructions, follow up and referral plans. Demonstrated understanding of instructions, follow-up care, 13:39 Patient left the ED. bp Signatures: Dispatcher [employer] Dona Panda RN RN iw Martinez, Gilmer em1 Jose Garcia RN RN bp Lucila Rowley mg5 Micah Velasco MD MD ec2
[2023-11-11 13:49] VITALS: BP 167/75; O2SAT 95
--- NOTE | 2023-11-15 14:45 | EKG ---
Test Date: 2023-11-11 Test Time: 10:08:41 Ethics Instructor: MELODIE MEASUREMENT RESULTS: Intervals: Rate: 70 [place]: 174 QRSD: 84 QT: 398 QTc: 429 Winner: P: 78 [place]: 174 QRS: 47 T: 60 INTERPRETIVE STATEMENTS: Normal sinus rhythm Possible Anterior infarct, age undetermined Abnormal ECG Compared to ECG 07/07/2023 15:44:28 Myocardial infarct finding now present ST (T wave) deviation no longer present Possible ischemia no longer present Electronically Signed On 11-15-23 14:32:58 [employer] by Torrey Hale
== END ==
LOC: ER 09:15
DX: R53.1 Weakness (principal); R19.7 Diarrhea, unspecified; R06.00 Dyspnea, unspecified; J44.9 Chronic obstructive pulmonary disease, unspecified; F17.220 Nicotine dependence, chewing tobacco, uncomplicated
CPT/HCPCS: 96361; 93005; 85025; 80048; 36415; 84484; 83880; 71045; 96360; 99284; J7030

== ENCOUNTER 2024-02-13 05:34 | Emergency (ER) | payer OTHER ==
[2024-02-13] MEDS ORDERED: METHYLPREDNISOLONE 125 MG INJ ONE (06:03)
[2024-02-13 06:16] LABS: PT Prothrombin Time 11.5 SECONDS (9.5-12.5); Protime INR 1.05
[2024-02-13 06:17] LABS: Absolute Eosinophils 0.1 K/uL (0-0.5); Absolute Lymphocytes (CBC) 1.4 K/uL (0.7-4.9); Absolute Monocytes 0.4 K/uL (0.1-1.3); Absolute Neutrophil 3.5 K/uL (1.8-8.0); Basophils % 0.8 % (0-1.3); Eosinophils % 2.6 % (0-4.4); Hematocrit 35.3 % (39.6-49.0); Hemoglobin 12.2 g/dL (13.6-17.9); Lymphocytes % 25.6 % (15.3-44.8); MCH 31.5 pg (27.0-35.0); MCHC 34.6 g/dL (32.0-36.0); MCV 91.1 fL (80-100); Monocytes % 7.9 % (3.3-12.3); Neutrophils % 63.1 % (41.7-73.7); Nucleated Red Blood Cells % 0.2 % (0-0); Platelets 220 thou/uL (152-406); RBC Red Blood Cell Count 3.88 M/uL (4.33-5.43)
--- NOTE | 2024-02-13 06:26 | RAD REPORT ---
EXAM DESCRIPTION: RAD - Chest Single View - 02/13/2024 6:11 am CLINICAL HISTORY: DYSPNEA COMPARISON: Chest Single View dated 11/11/2023; Chest Single View dated 07/07/2023; Chest Pa And Lat (2 Views) dated 09/08/2022; Chest Single View dated 06/02/2021 FINDINGS: Lines: None. Lungs: No evidence of edema or pneumonia. Pleural: No significant pleural effusions or pneumothorax. Cardiac: The heart size is within normal limits. Mediastinum: Within normal limits. Bones: No acute fractures. Other: None IMPRESSION: No acute cardiopulmonary disease.
[2024-02-13 06:33] LABS: Anion Gap 8.2 mEq/L (5.0-15.0); Potassium 3.2 mEq/L (3.5-5.1); Troponin High Sensitivity 11.6 pg/mL (<58.9)
[2024-02-13] MEDS ORDERED: POTASSIUM CL SA 10 MEQ TAB PO ONE (06:46)
[2024-02-13] MEDS ORDERED: ONDANSETRON 4 MG/2 ML VIAL ONE (07:08)
--- NOTE | 2024-02-13 07:15 | RAD REPORT ---
EXAM DESCRIPTION: CT - Thorax W/ Con - 02/13/2024 7:04 am CLINICAL HISTORY: Dyspnea;COPD;Cough COMPARISON: No comparisons TECHNIQUE: CT scan of the chest was obtained with IV contrast. All CT scans are performed using dose optimization technique as appropriate and may include automated exposure control or mA/KV adjustment according to patient size. FINDINGS: Chest Wall: No suspicious thyroid nodules or pathologic lymphadenopathy. Lungs: Closer tiny calcified pulmonary nodules a left lower lobe which are benign. Other scattered pu lmonary nodules are noted, most of which are calcified and benign. No suspicious pulmonary nodules or acute findings. Pleura: No significant effusions or pneumothorax. Mediastinum/miguel a: No pathologic lymphadenopathy. A radiopaque pill is present at the distal esophagus which is presumably transient. Several similarly sized pills are seen within the stomach. Pulmonary arteries/Aorta: No filling defect identified. No aortic aneurysm. Heart: No significant pericardial effusion. Normal heart size. A few sclerotic coronary artery calcif ications. Upper abdomen: No acute abnormality. Bones: No acute abnormality. IMPRESSION: No acute findings in the chest.
--- NOTE | 2024-02-13 07:37 | EDPHYS ---
Physician Documentation [facility] Name: Victoriano Coronel Age: 73 yrs Sex: Male : 1950 Arrival Date: 02/13/2024 Time: 05:34 Bed 4 Private MD: ED Physician Santos Betancourt HPI: 02/12 05:53 This 73 yrs old Male presents to ER via Ambulatory with complaints of dyspnea.ec2 05:54 Patient arrives today d/t concern for sob. Pt is brought in by significant other, ec2 reportedly has been having 4 days of shortness of breath. Some occasional cough. Patient with history of dementia as well as COPD, history gathered from significant other. Some bouts of diarrhea, no vomiting. No abdominal pain, no leg swelling. Family is concerned regarding weight loss as well as night sweats.. Historical: - Allergies: 05:50 No Known Allergies; cm10 - PMHx: 05:50 chronic back pain; COPD; Diabetes - NIDDM; Dementia; Hypertension; Hyperlipidemia; cm10 - Immunization history:: Adult Immunizations up to date. - Infectious Disease History:: Denies. - Social history:: Smoking status: Patient reports use of chewing tobacco. ROS: 05:54 Constitutional: as per hpi ec2 Exam: 05:54 Constitutional: GEN: NAD Head: atraumatic Eyes: EOMI Ears: External ears are ec2 normal. CV: regular rate LUNGS: no respiratory distress, no wheezes, rales, or rhonchi ABD: non-distended SKIN: no evidence of rashes MSK: no evidence of trauma NEURO: moves all extremities equally Vital Signs: 05:48 BP 151 / 82; Pulse 72; Resp 18; Temp 97.7; Pulse Ox 99% on R/A; Weight 64 kg; Height 5 cm10 ft. 6 in. ; Pain 8/10; 07:20 BP 156 / 87; Pulse 82; Resp 14 S; Pulse Ox 97% on R/A; kc6 05:48 Body Mass Index 22.77 (64.00 kg, 167.64 cm) cm10 05:48 Pain Scale: Adult cm10 MDM: 05:40 Patient medically screened. ec2 05:54 Data reviewed: vital signs. ED course: Patient arrives today for evaluation of ec2 shortness of breath. Examination remarkable for well-appearing nontoxic individual is otherwise in no acute distress with a reassuring cardiopulmonary examination. Will obtain lab work, EKG as well as chest x-ray, CT imaging. Differential diagnosis includes processes such as pneumonia, lung mass, volume overload. . 05:58 ED course: EKG independently reviewed and interpreted by me, shows normal sinus rhythm, ec2 rate of 75, no acute ST segment elevations, intervals are nonconcerning. . 06:29 ED course: CBC shows slight anemia, metabolic profile is pending. INR is unremarkable. ec2 Chest x-ray shows no acute intrathoracic process. . 06:35 ED course: Metabolic profile shows hypokalemia with potassium of 3.2. Slight BNP ec2 elevation at 340. Troponin within normal ranges. Will sign patient out with pending CT scan of the chest. . 06:56 Transition of care: After a detail discussion of the patient's case, care is ec2 transferred to Santos Betancourt MD. 07:50 Differential Diagnosis COPD, pneumonia, CHF. Consideration of Admission/Observation rt Escalation of care including admission/observation considered. Workup benign, oxygenation is normal on room air, symptoms are significantly improving. No indications for admission at this time, patient stable for outpatient care.. I considered the following discharge prescriptions or medication management in the emergency department Medications were administered in the Emergency Department. See MAR. Independent interpretation of the following test(s) in the Emergency Department X-Ray: My interpretation is No pneumonia seen on interpretation of x-ray images. Care significantly affected by the following chronic conditions: Chronic Obstructive Pulmonary Disease. Counseling: I had a detailed discussion with the patient and/or guardian regarding the historical points, exam findings, and any diagnostic results supporting the discharge/admit diagnosis, lab results, radiology results, the need for outpatient follow up, to return to the emergency department if symptoms worsen or persist or if there are any questions or concerns that arise at home. 02/12 05:40 Order name: Basic Metabolic Panel; Complete Time: 06:35 ec2 02/12 05:40 Order name: CBC with Diff; Complete Time: : ec2 02/12 05:40 Order name: NT PRO-BNP; Complete Time: 06:35 ec2 02/12 05:40 Order name: PT-INR; Complete Time: : ec2 02/12 05:40 Order name: Troponin HS; Complete Time: 06:35 ec2 02/12 05:40 Order name: XRAY Chest (1 view); Complete Time: 06:29 2 02/12 05:53 Order name: CT Chest W/ Con; Complete Time: 07:17 2 02/12 05:40 Order name: EKG; Complete Time: 05:41 02/12 05:40 Order name: Cardiac monitoring; Complete Time: 06:09 2 02/12 05:40 Order name: EKG - Nurse/Tech; Complete Time: 06:09 2 02/12 05:40 Order name: IV Saline Lock; Complete Time: 06:09 02/12 05:40 Order name: Labs collected and sent; Complete Time: 06:09 02/12 05:40 Order name: O2 Per Protocol; Complete Time: 06:09 02/12 05:40 Order name: O2 Sat Monitoring; Complete Time: 06:09 ec2 Administered Medications: 06:09 Drug: MethylPrednisoLONE IVP 125 mg IVP once Route: IVP; Site: right antecubital; lg3 06:50 Follow up: Response: No adverse reaction lg3 06:50 Drug: Potassium Chloride PO 40 mEq PO once Route: PO; lg3 07:33 Follow up: Response: No adverse reaction kc6 07:16 Drug: Ondansetron IVP 4 mg IVP once; over 2 minutes Route: IVP; Site: right antecubital;kc6 07:33 Follow up: Response: No adverse reaction; Nausea is decreased kc6 Disposition Summary: 02/13/24 07:36 Discharge Ordered Notes: Location: Home rt Condition: Stable rt Diagnosis - Dyspnea, unspecified rt - Hypokalemia rt Followup: ec2 - With: Private Physician - When: - Reason: Re-evaluation by your physician Discharge Instructions: - Discharge Summary Sheet rt - Living With COPD rt Forms: - Medication Reconciliation Form rt - Antibiotic Education rt - Prescription Opioid Use rt - Patient Portal Instructions rt - Leadership Thank You Letter rt Prescriptions: - albuterol sulfate 2.5 mg /3 mL (0.083 %) Inhalation Solution for Nebulization - nebulize 3 milliliter INHALATION route every 3 to 4 hours as needed for rt shortness of breath or wheezing; 90 milliliter; Refills: 0, Product Selection Permitted - Hydroxyzine HCl 25 mg Oral Tablet - take 1 tablet ORAL route every 6 hours As needed; 12 tablet; Refills: 0, rt Product Selection Permitted - Prednisone 20 mg Oral Tablet - take 2 tablets ORAL route once daily for 5 days; 10 tablet; Refills: 0, Product rt Selection Permitted Signatures: Dispatcher [employer] EDMS Emily Doe, RN RN lg3 Angela Betancur RN RN kc6 Santos Betancourt MD MD rt Antonia Foster RN RN cm10 Micah Velasco MD MD ec2 Corrections: (The following items were deleted from the chart) 05:53 05:53 Thorax W/ Con+CT.RAD.BRZ ordered. EDMS EDMS 05:55 05:54 Patient arrives today d/t concern for sob. Pt is brought in by significant other, ec2 reportedly has been having 4 days of shortness of breath. Some occasional cough. Patient with history of dementia as well as COPD, history gathered from significant other. Some bouts of diarrhea, no vomiting. No abdominal pain, no leg swelling.. ec2
--- NOTE | 2024-02-13 07:37 | ER ---
Nurse's Notes [facility] Name: Victoriano Coronel Age: 73 yrs Sex: Male : 1950 Arrival Date: 02/13/2024 Time: 05:34 Bed 4 Private MD: Diagnosis: Dyspnea, unspecified;Hypokalemia Presentation: 02/12 05:48 Chief complaint: Spouse and/or significant other states: Pt has been having some cm10 shortness of breath onset . Pt's reports that shortness of breath got worse Wednesday night. Pt currently complaining of lower back pain. Respirations even and unlabored during triage. Coronavirus screen: Client denies travel out of the [place] in the last 14 days. At this time, the client does not indicate any symptoms associated with coronavirus-19. Ebola Screen: Patient denies travel to an Ebola-affected area in the 21 days before illness onset. No symptoms or risks identified at this time. Initial Sepsis Screen: Does the patient meet any 2 criteria? No. Patient's initial sepsis screen is negative. Does the patient have a suspected source of infection? No. Patient's initial sepsis screen is negative. Risk Assessment: Do you want to hurt yourself or someone else? Patient reports no desire to harm self or others. Onset of symptoms was February 10, 2024. 05:48 Method Of Arrival: Ambulatory cm10 05:48 Acuity: JAVI 2 cm10 Triage Assessment: 05:51 General: Appears in no apparent distress. comfortable, Behavior is calm, cooperative. cm10 Pain: Complains of pain in back Is chronic. Neuro: No deficits noted. Level of Consciousness is awake, alert, obeys commands, Oriented to person, place, time, situation, Appropriate for age. Respiratory: No deficits noted. Airway is patent Respiratory effort is even, unlabored, Respiratory pattern is regular, symmetrical. Historical: - Allergies: 05:50 No Known Allergies; cm10 - PMHx: 05:50 chronic back pain; COPD; Diabetes - NIDDM; Dementia; Hypertension; Hyperlipidemia; cm10 - Immunization history:: Adult Immunizations up to date. - Infectious Disease History:: Denies. - Social history:: Smoking status: Patient reports use of chewing tobacco. Screenin:06 [facility] ED Fall Risk Assessment (Adult) History of falling in the last 3 months, lg3 including since admission No falls in past 3 months (0 pts) Confusion or Disorientation No (0 pts) Intoxicated or Sedated No (0 pts) Impaired Gait No (0 pts) Mobility Assist Device Used No (0 pt) Altered Elimination No (0 pt) Score/Fall Risk Level 0 - 2 = Low Risk Oriented to surroundings, Maintained a safe environment, Educated pt \T\ family on fall prevention, incl call for assistance when getting out of bed, Assessed \T\ reinforced patient's understanding of fall precautions, Provided non-skid footwear. Abuse screen: Denies threats or abuse. Denies injuries from another. Nutritional screening: No deficits noted. Tuberculosis screening: No symptoms or risk factors identified. Assessment: 06:06 General: Appears in no apparent distress. comfortable, Behavior is calm, cooperative. lg3 Pain: Denies pain. Neuro: No deficits noted. Caraballo Agitation-Sedation Scale (RASS): 0 - Alert and Calm Level of Consciousness is awake, alert, obeys commands, Oriented to person, place, time, situation. Cardiovascular: No deficits noted. Heart tones S1 S2 present Capillary refill < 3 seconds Clubbing of nail beds is absent JVD is absent Patient's skin is warm and dry. Parent/caregiver reports patient has had shortness of breath. Respiratory: No deficits noted. Airway is patent Respiratory effort is even, unlabored, Respiratory pattern is regular, symmetrical, Breath sounds are clear bilaterally. Parent/caregiver reports the patient having shortness of breath. GI: No deficits noted. No signs and/or symptoms were reported involving the gastrointestinal system. Abdomen is flat, non-distended, Bowel sounds present X 4 quads. Abd is soft and non tender X 4 quads. : No deficits noted. No signs and/or symptoms were reported regarding the genitourinary system. EENT: No deficits noted. No signs and/or symptoms were reported regarding the EENT system. Derm: No deficits noted. No signs and/or symptoms reported regarding the dermatologic system. Skin is intact, is thin, Skin is dry, Skin is normal, Skin temperature is warm. Musculoskeletal: No deficits noted. No signs and/or symptoms reported regarding the musculoskeletal system. Circulation, motion, and sensation intact. Range of motion: intact in all extremities. 07:21 Reassessment: Patient appears in no apparent distress at this time. No changes from kc6 previously documented assessment. Patient and/or family updated on plan of care and expected duration. Pain level reassessed. Patient is alert, oriented x 3, equal unlabored respirations, skin warm/dry/pink. Vital Signs: 05:48 BP 151 / 82; Pulse 72; Resp 18; Temp 97.7; Pulse Ox 99% on R/A; Weight 64 kg; Height 5 cm10 ft. 6 in. ; Pain 8/10; 07:20 BP 156 / 87; Pulse 82; Resp 14 S; Pulse Ox 97% on R/A; kc6 05:48 Body Mass Index 22.77 (64.00 kg, 167.64 cm) cm10 05:48 Pain Scale: Adult cm10 ED Course: 05:40 Patient arrived in ED. ec2 05:40 Micah Velasco MD is Attending Physician. ec2 05:50 Triage completed. cm10 05:52 Arm band placed on Patient placed in an exam room, on a stretcher, on qa specialist, cm10 on pulse oximetry. 06:06 Patient has correct armband on for positive identification. Placed in gown. Bed in low lg3 position. Call light in reach. Side rails up X 1. Client placed on continuous cardiac and pulse oximetry monitoring. NIBP monitoring applied. stopping builder on. Door closed. Noise minimized. Warm blanket given. Pillow given. Family accompanied patient. 06:06 Initial lab(s) drawn, by me, sent to lab. EKG done, by ED staff, reviewed by Micah Velasco MD X-ray(s) taken. Inserted saline lock: 20 gauge in right antecubital area, using aseptic technique. Blood collected. 06:13 XRAY Chest (1 view) In Process Unspecified. EDMS 06:44 Emily Doe RN is Primary Nurse. lg3 06:58 Attending Physician role handed off by Micah Velasco MD rt 06:58 Santos Betancourt MD is Attending Physician. rt 07:00 Report received from JUNG Diaz. kc6 07:05 CT Chest W/ Con In Process Unspecified. EDMS 07:44 No provider procedures requiring assistance completed. IV discontinued, intact, kc6 bleeding controlled, No redness/swelling at site. Pressure dressing applied. Administered Medications: 06:09 Drug: MethylPrednisoLONE IVP 125 mg IVP once Route: IVP; Site: right antecubital; lg3 06:50 Follow up: Response: No adverse reaction lg3 06:50 Drug: Potassium Chloride PO 40 mEq PO once Route: PO; lg3 07:33 Follow up: Response: No adverse reaction kc6 07:16 Drug: Ondansetron IVP 4 mg IVP once; over 2 minutes Route: IVP; Site: right antecubital;kc6 07:33 Follow up: Response: No adverse reaction; Nausea is decreased kc6 Medication: 07:45 VIS not applicable for this client. kc6 Outcome: 07:36 Discharge ordered by MD. rt 07:45 Discharged to home ambulatory, with significant other, kc6 07:45 Condition: good 07:45 Discharge instructions given to patient, significant other, Instructed on discharge instructions, follow up and referral plans. medication usage, Demonstrated understanding of instructions, follow-up care, medications, Prescriptions given X 3, 07:45 Patient left the ED. kc6 Signatures: Dispatcher [employer] EDEmily Mckeon RN RN lg3 Angela Betancur RN RN kc6 Santos Betancourt MD MD rt Antonia Foster RN RN cm10 Micah Velasco MD MD ec2
[2024-02-13 07:50] VITALS: TEMP 97.7
[2024-02-13 07:51] VITALS: BP 156/87; O2SAT 97
--- NOTE | 2024-02-15 14:20 | EKG ---
Test Date: 2024-02-13 Test Time: 05:56:24 Drywall Sprayer: KATHY MEASUREMENT RESULTS: Intervals: Rate: 75 SC: 186 QRSD: 90 QT: 386 QTc: 431 [place]: P: 81 SC: 186 QRS: 64 T: 141 INTERPRETIVE STATEMENTS: Normal sinus rhythm with sinus arrhythmia Nonspecific T wave abnormality Abnormal ECG Compared to ECG 11/11/2023 10:08:41 T-wave abnormality now present Myocardial infarct finding no longer present Electronically Signed On 02-15-24 14:13:56 CDT by Torrey Hale
== END 2024-02-13 07:45 | disposition home or self-care (01) ==
LOC: ER 05:34
DX: R06.00 Dyspnea, unspecified (principal); E87.6 Hypokalemia; J44.9 Chronic obstructive pulmonary disease, unspecified; F17.220 Nicotine dependence, chewing tobacco, uncomplicated
CPT/HCPCS: 93005; 85025; 80048; 36415; 85610; 84484; 83880; 71260; 71045; 96375; 96374; 99285; Q9967; J2919; J2405

== ENCOUNTER 2024-06-03 09:51 | Emergency (ER) | payer OTHER ==
[2024-06-03] MEDS ORDERED: ASPIRIN 81 MG CHEWABLE TABLET ONE (10:08)
[2024-06-03 10:20] LABS: Absolute Basophils 0.1 K/uL (0-0.5); Absolute Eosinophils 0.1 K/uL (0-0.5); Absolute Monocytes 0.7 K/uL (0.1-1.3); Absolute Neutrophil 11.8 K/uL (1.8-8.0); Basophils % 0.5 % (0-1.3); Eosinophils % 0.5 % (0-4.4); Lymphocytes % 7.3 % (15.3-44.8); MCHC 33.4 g/dL (32.0-36.0); MCV 92.7 fL (80-100); MPV 7.5 fL (7.6-11.3); Neutrophils % 86.7 % (41.7-73.7); Platelets 237 thou/uL (152-406); Red Cell Distribution Width 13.9 % (12.1-15.2)
[2024-06-03 10:27] LABS: PT Prothrombin Time 10.8 SECONDS (9.4-12.5); Protime INR 0.96
[2024-06-03 10:45] LABS: ALT/SGPT 19 U/L (16-61); Albumin/Globulin Ratio 1.5 (1.1-1.8); Alkaline Phosphatase 59 U/L (45-117); Anion Gap 12.1 mEq/L (5.0-15.0); BUN Blood Urea Nitrogen 28 mg/dL (7-18); Bicarbonate 26 mEq/L (21-32); Bilirubin Direct 0.2 mg/dL (0-0.2); Bilirubin Indirect, Calculated 0.6 mg/dL (0.2-0.8); Bilirubin Total 0.8 mg/dL (0.2-1.0); Globulin 2.6 g/dL (2.3-3.5); Glomerular Filtration Rate 55 ml/min (=/>90); Glucose Level 141 mg/dL (74-106); NT PRO-BNP 276 pg/mL (<125); Potassium 3.1 mEq/L (3.5-5.1); Protein, Total 6.6 g/dL (6.4-8.2); Sodium Level 137 mEq/L (136-145); Troponin High Sensitivity 12.3 pg/mL (<58.9)
[2024-06-03 10:53] LABS: AST/SGOT < 10 U/L (15-37)
[2024-06-03] MEDS ORDERED: NA CHLORIDE 0.9% 1,000 ML ONE (11:06)
[2024-06-03] MEDS ORDERED: POTASSIUM 25 MEQ EFFERV TAB ONE (11:06)
--- NOTE | 2024-06-03 11:10 | RAD REPORT ---
EXAM DESCRIPTION: Ricky Single View06/03/2024 10:56 am CLINICAL HISTORY: Chest pain COMPARISON: January 2024 FINDINGS: The lungs appear clear of acute infiltrate. The heart is normal size IMPRESSION: No acute abnormalities displayed
[2024-06-03 11:19] LABS: Blood Morphology Comment NOT SEEN (NOT SEEN); Platelet Estimate ADEQ; White Blood Cell Scan OK (OK)
--- NOTE | 2024-06-03 12:53 | RAD REPORT ---
EXAM DESCRIPTION: CT - Angio Aorta For Dissection - 06/03/2024 12:23 pm CLINICAL HISTORY: . Chest and abd pain COMPARISON: January [address] abdomen TECHNIQUE: Computed tomography angiography of the chest, abdomen pelvis were obtained. 100 cc Isovue 370 was administered intravenously. Coronal and sagittal reconstruction were performed. MIP 3D reconstruction was performed All CT scans are performed using dose optimization technique as appropriate and may include automated exposure control or mA/KV adjustment according to patient size. FINDINGS: An aortic dissection is not seen. An aortic aneurysm is not displayed. The celiac, SMA and CARLITO are patent . A lung consolidation is not present. A pericardial effusion is not seen. A pleural effusion is not no jabier. The liver,spleen, pancreas,adrenals and kidneys demonstrate no significant abnormality. Normal appendix Diverticula stem from colon. Mild stranding adjacent to sigmoid colon. No free air. No abscess IMPRESSION: Negative for an aortic dissection. Mild sigmoid diverticulitis
--- NOTE | 2024-06-03 13:35 | EDPHYS ---
Physician Documentation [facility] Name: Victoriano Coronel Age: 73 yrs Sex: Male : 1950 Arrival Date: 06/03/2024 Time: 09:51 Bed 4 Private MD: ED Physician Mark Levi HPI: 06/03 09:59 This 73 yrs old Male presents to ER via Unassigned with complaints of Chest Pain. sb4 09:59 The patient or guardian reports chest pain that is located primarily in the substernal sb4 area. Onset: this morning. The pain radiates to back. Associated signs and symptoms: The patient has no apparent associated signs or symptoms. The chest pain is described as a pressure. Modifying factors: The symptoms are alleviated by nothing. the symptoms are aggravated by nothing. The patient has not experienced similar symptoms in the past. The patient has not recently seen a physician. Historical: - Allergies: 10:03 No Known Allergies; hb - Home Meds: 10:03 clondine 0.3mg three times a day [Active]; donepezil 10 mg Oral tablet 1 tab every day hb at bedtime [Active]; hydralazine 25 mg oral tablet 3 times per day [Active]; losartan 100 mg Oral tab 1 tab once daily [Active]; metformin 500 mg Oral tab daily [Active]; furosemide 40 mg oral tablet 2 times per day [Active]; Wixela Inhub 500-50 mcg/dose inhalation Blister, With Inhalation Device as needed [Active]; - PMHx: 10:03 chronic back pain; COPD; Diabetes - NIDDM; Dementia; Hypertension; Hyperlipidemia; hb - Immunization history:: Adult Immunizations unknown. - Infectious Disease History:: Denies. - Social history:: Smoking status: unknown. ROS: 09:59 Constitutional: Negative for fever, chills, and weight loss, sb4 09:59 Cardiovascular: Positive for chest pain, 09:59 All other systems are negative, Exam: 09:59 Constitutional: This is a well developed, well nourished patient who is awake, alert, sb4 and in no acute distress. Head/Face: Normocephalic, atraumatic. Eyes: Extra-ocular motions intact. Periorbital areas with no swelling, redness, or edema. ENT: Mucous membranes moist. Cardiovascular: Regular rate and rhythm with a normal S1 and S2. Respiratory: Lungs have equal breath sounds bilaterally, clear to auscultation and percussion. No rales, rhonchi or wheezes noted. No increased work of breathing, no retractions or nasal flaring. Abdomen/GI: Soft, non-tender, no distension. Skin: Warm, dry with normal turgor. Normal color with no rashes, no lesions, and no evidence of cellulitis. MS/ Extremity: Pulses equal, no cyanosis. Neurovascular intact. Full, normal range of motion. Neuro: Awake and alert, GCS 15, oriented to person, place, time, and situation. Motor strength 5/5 in all extremities. Sensory grossly intact. Vital Signs: 09:54 BP 135 / 80; Pulse 77; Resp 15; Temp 97.8(TE); Pulse Ox 98% on R/A; Weight 64.86 kg hb (M); Height 5 ft. 8 in. ; Pain 6/10; 11:18 BP 126 / 68; Pulse 60; Resp 15; Pulse Ox 95% ; jl7 09:54 Body Mass Index 21.74 (64.86 kg, 172.72 cm) hb 09:54 Pain Scale: Adult hb MDM: 09:53 Patient medically screened. sb4 13:02 The patient was given aspirin in the Emergency Department. Data reviewed: vital signs, sb4 nurses notes, lab test result(s), EKG, radiologic studies, and as a result, I will discharge patient. Consideration of Admission/Observation Escalation of care including admission/observation considered. Historians other than the Patient: Spouse/Significant Other: . Care significantly affected by the following chronic conditions: Diabetes, Hypertension. Counseling: I had a detailed discussion with the patient and/or guardian regarding the historical points, exam findings, and any diagnostic results supporting the discharge/admit diagnosis, lab results, radiology results, the need for outpatient follow up, a market risk specialist, to return to the emergency department if symptoms worsen or persist or if there are any questions or concerns that arise at home. Refusal of service: The patient/guardian displays adequate decision making capability and despite a detailed discussion of alternatives, benefits, risks, and consequences refuses: Admission to the hospital for further work-up and treatment. Special discussion: Based on the patient's history, exam, and Dx evaluation, there is no indication for emergent intervention or inpatient Tx. It is understood by the patient/guardian that if the Sx's persist or worsen they need to return immediately for re-evaluation. 13:35 ED course: patient left prior to second troponin resulting and prior to receiving sb4 discharge instructions and prescriptions . 06/03 09:59 Order name: Basic Metabolic Panel; Complete Time: 10:54 sb4 06/03 09:59 Order name: CBC with Diff; Complete Time: 11:22 sb4 06/03 09:59 Order name: LFT's; Complete Time: 10:54 sb4 06/03 09:59 Order name: Magnesium; Complete Time: 10:54 sb4 06/03 09:59 Order name: NT PRO-BNP; Complete Time: 10:54 sb4 06/03 09:59 Order name: PT-INR; Complete Time: 10:30 sb4 06/03 09:59 Order name: Troponin HS; Complete Time: 10:54 sb4 06/03 11:19 Order name: CBC Smear Scan; Complete Time: 11:22 EDMS 06/03 12:59 Order name: Troponin High Sensitivity; Complete Time: 13:43 sb4 06/03 09:59 Order name: XRAY Chest (1 view); Complete Time: 11:10 sb4 06/03 11:12 Order name: CT Aorta for Dissection; Complete Time: 12:53 sb4 06/03 09:59 Order name: Cardiac monitoring; Complete Time: 10:11 sb4 06/03 09:59 Order name: EKG - Nurse/Tech; Complete Time: 10:11 sb4 06/03 09:59 Order name: IV Saline Lock; Complete Time: 10:11 sb4 06/03 09:59 Order name: Labs collected and sent; Complete Time: 10:11 sb4 06/03 09:59 Order name: O2 Per Protocol; Complete Time: 10:11 sb4 06/03 09:59 Order name: O2 Sat Monitoring; Complete Time: 10:11 sb4 EC:02 Rate is 72 beats/min. Rhythm is regular, Normal Sinus Rhythm. WI interval is normal at sb4 190 msec. QRS interval is normal at 92 msec. QT interval is normal at 384 msec. No Q waves. No ST changes noted. Clinical impression: No evidence of ischemia. Interpreted by me. Reviewed by me. Administered Medications: 10:11 Drug: Aspirin PO Chewable Tablet 324 mg PO once; 81 mg tablets x 4 Route: PO; ko1 10:12 Follow up: patient took 162 prior to coming in ko1 11:14 Drug: NS 0.9% IV 1000 ml IV at 1 bolus Per protocol; 1000 mL bolus Route: IV; Rate: 1 jl7 bolus; Site: right forearm; 12:45 Follow up: Response: No adverse reaction; IV Status: Completed infusion; IV Intake: jl7 1000ml 11:14 Drug: Potassium PO Effervescent Tablet 50 mEq PO once; dissolve in 4 ounces of water or jl7 juice Route: PO; 11:30 Follow up: Response: No adverse reaction jl7 Disposition: 16:01 Co-signature as Attending Physician, Mark Levi MD I agree with the assessment and joselin plan of care. Disposition Summary: 06/03/24 13:34 Discharge Ordered Notes: Location: Home sb4 Problem: new sb4 Symptoms: have improved sb4 Condition: Stable sb4 Diagnosis - Chest pain, unspecified sb4 - Diverticulitis of large intestine without perforation or abscess without bleeding sb4 Followup: sb4 - With: Torrey Hale MD - When: 2 - 3 days - Reason: Further diagnostic work-up, Recheck today's complaints, Re-evaluation by your physician Discharge Instructions: - Discharge Summary Sheet sb4 - Diverticulitis, [id number] sb4 - Nonspecific Chest Pain, Adult, [id number] sb4 Forms: - Medication Reconciliation Form sb4 - Antibiotic Education sb4 - Prescription Opioid Use sb4 - Patient Portal Instructions sb4 - Leadership Thank You Letter sb4 Prescriptions: - Flagyl 500 mg Oral Tablet - take 1 tablet ORAL route every 12 hours for 7 days; 14 tablet; Refills: 0, sb4 Product Selection Permitted - Cipro 500 mg Oral Tablet - take 1 tablet ORAL route every 12 hours for 7 days; 14 tablet; Refills: 0, sb4 Product Selection Permitted Signatures: Dispatcher [employer] Mark Ybarra MD MD cha Baxter, Heather RN RN Les Huynh RN RN jl7 Es Snow RN RN ko1 Lashawn Fortune PA-C PAAlla sb4 Corrections: (The following items were deleted from the chart) 10:00 10:00 BASIC METABOLIC PANEL+C.LAB.BRZ ordered. EDMS EDMS 10:00 10:00 CBC+H.LAB.BRZ ordered. EDMS EDMS 10:00 10:00 HEPATIC FUNCTION+C.LAB.BRZ ordered. EDMS EDMS 10:00 10:00 MAGNESIUM+C.LAB.BRZ ordered. EDMS EDMS 10:00 10:00 PROBNP+C.LAB.BRZ ordered. EDMS EDMS 10:00 10:00 PROTIME (+INR)+COAG.LAB.BRZ ordered. EDMS EDMS 10:00 10:00 Troponin High Sensitivity+C.LAB.BRZ ordered. EDMS EDMS 10:00 10:00 Chest Single View+RAD.RAD.BRZ ordered. EDMS EDMS 13:00 13:00 Troponin High Sensitivity+C.LAB.BRZ ordered. EDMS EDMS
--- NOTE | 2024-06-03 13:35 | ER ---
Nurse's Notes [facility] Name: Victoriano Coronel Age: 73 yrs Sex: Male : 1950 Arrival Date: 06/03/2024 Time: 09:51 Bed 4 Private MD: Diagnosis: Chest pain, unspecified;Diverticulitis of large intestine without perforation or abscess without bleeding Presentation: 06/03 09:54 Chief complaint: Midsternal chest pain and SOB x 3-4 days, worse today. Coronavirus hb screen: At this time, the client does not indicate any symptoms associated with coronavirus-19. Ebola Screen: No symptoms or risks identified at this time. Initial Sepsis Screen: Does the patient meet any 2 criteria? No. Patient's initial sepsis screen is negative. Does the patient have a suspected source of infection? No. Patient's initial sepsis screen is negative. Risk Assessment: Do you want to hurt yourself or someone else? Patient reports no desire to harm self or others. Onset of symptoms was May 31, 2024. 09:54 Method Of Arrival: Ambulatory hb 09:54 Acuity: JAVI 2 hb Historical: - Allergies: 10:03 No Known Allergies; hb - Home Meds: 10:03 clondine 0.3mg three times a day [Active]; donepezil 10 mg Oral tablet 1 tab every day hb at bedtime [Active]; hydralazine 25 mg oral tablet 3 times per day [Active]; losartan 100 mg Oral tab 1 tab once daily [Active]; metformin 500 mg Oral tab daily [Active]; furosemide 40 mg oral tablet 2 times per day [Active]; Wixela Inhub 500-50 mcg/dose inhalation Blister, With Inhalation Device as needed [Active]; - PMHx: 10:03 chronic back pain; COPD; Diabetes - NIDDM; Dementia; Hypertension; Hyperlipidemia; hb - Immunization history:: Adult Immunizations unknown. - Infectious Disease History:: Denies. - Social history:: Smoking status: unknown. Screenin:30 [facility] ED Fall Risk Assessment (Adult) History of falling in the last 3 months, jl7 including since admission No falls in past 3 months (0 pts) Confusion or Disorientation No (0 pts) Intoxicated or Sedated No (0 pts) Impaired Gait No (0 pts) Mobility Assist Device Used No (0 pt) Altered Elimination No (0 pt) Score/Fall Risk Level 0 - 2 = Low Risk Oriented to surroundings, Maintained a safe environment. Abuse screen: Denies threats or abuse. Denies injuries from another. 10:30 Nutritional screening: No deficits noted. Tuberculosis screening: No symptoms or risk jl7 factors identified. Assessment: 10:00 General: Appears in no apparent distress. uncomfortable, Behavior is calm, cooperative, jl7 appropriate for age. 10:00 Pain: Complains of pain in anterior aspect of left upper chest Pain does not radiate. jl7 Pain currently is 6 out of 10 on a pain scale. Quality of pain is described as pressure, Pain began 3 hours ago. Is continuous. Neuro: Level of Consciousness is awake, alert, obeys commands, Oriented to person, place, time, situation. Cardiovascular: Reports chest pain, Patient's skin is warm and dry. Rhythm is sinus rhythm. Respiratory: Airway is patent Respiratory effort is even, unlabored, Respiratory pattern is regular, symmetrical. Derm: Skin is pink, warm \T\ dry. 11:18 Reassessment: Patient appears in no apparent distress at this time. No changes from jl7 previously documented assessment. Patient and/or family updated on plan of care and expected duration. Pain level reassessed. Patient is alert, oriented x 3, equal unlabored respirations, skin warm/dry/pink. Vital Signs: 09:54 BP 135 / 80; Pulse 77; Resp 15; Temp 97.8(TE); Pulse Ox 98% on R/A; Weight 64.86 kg hb (M); Height 5 ft. 8 in. ; Pain 6/10; 11:18 BP 126 / 68; Pulse 60; Resp 15; Pulse Ox 95% ; jl7 09:54 Body Mass Index 21.74 (64.86 kg, 172.72 cm) hb 09:54 Pain Scale: Adult hb ED Course: 09:53 Patient arrived in ED. sb4 09:53 Lashawn Fortune PA-C is PHCP. sb4 09:53 Mark Levi MD is Attending Physician. sb4 09:57 EKG done, by ED staff, reviewed by Lashawn Fortune PA-C. hb 09:57 Client placed on continuous cardiac and pulse oximetry monitoring. NIBP monitoring hb applied. panel monitor on. Pulse ox on. 10:03 Triage completed. hb 10:11 Les Hathaway, RN is Primary Nurse. jl7 10:11 Initial lab(s) drawn, by me, sent to lab. Inserted saline lock: 20 gauge in right jl7 forearm, using aseptic technique. Blood collected. Flushed with 10 mL NS. 10:30 Patient has correct armband on for positive identification. Placed in gown. Bed in low jl7 position. Call light in reach. Side rails up X 1. Provided Education on: use of call dutton. 10:42 Basic Metabolic Panel Sent. ko1 10:42 LFT's Sent. ko1 10:42 Magnesium Sent. ko1 10:42 NT PRO-BNP Sent. ko1 10:43 Troponin HS Sent. ko1 10:58 XRAY Chest (1 view) In Process Unspecified. EDMS 12:24 CT Aorta for Dissection In Process Unspecified. EDMS 13:15 Troponin High Sensitivity Sent. ko1 13:30 No provider procedures requiring assistance completed. IV discontinued, intact, jl7 bleeding controlled, No redness/swelling at site. Pressure dressing applied. Patient maintains SpO2 saturation greater than 95% on room air. 13:34 Torrey Hale MD is Referral Physician. sb4 Administered Medications: 10:11 Drug: Aspirin PO Chewable Tablet 324 mg PO once; 81 mg tablets x 4 Route: PO; ko1 10:12 Follow up: patient took 162 prior to coming in ko1 11:14 Drug: NS 0.9% IV 1000 ml IV at 1 bolus Per protocol; 1000 mL bolus Route: IV; Rate: 1 jl7 bolus; Site: right forearm; 12:45 Follow up: Response: No adverse reaction; IV Status: Completed infusion; IV Intake: jl7 1000ml 11:14 Drug: Potassium PO Effervescent Tablet 50 mEq PO once; dissolve in 4 ounces of water or jl7 juice Route: PO; 11:30 Follow up: Response: No adverse reaction jl7 Medication: 19:16 VIS not applicable for this client. jl7 Intake: 12:45 IV: 1000ml; Total: 1000ml. jl7 Outcome: 13:34 Discharge ordered by . sb4 13:35 Discharged to home ambulatory, with significant other, jl7 13:35 Condition: stable 13:35 Discharge instructions given to Pt and pt's walked out of ER without discharge papers 13:37 Patient left the ED. jl7 Signatures: Dispatcher [employer] EDMS Guera Brito, Les Patel RN RN JUNG jl7 Es Snow, JUNG RN Lashawn Cantrell, THOMAS PAAlla sb4 Corrections: (The following items were deleted from the chart) :30 General: Appears in no apparent distress. uncomfortable, Behavior is calm, jl7 cooperative, appropriate for age, [facility] :30 Pain: Complains of pain in anterior aspect of left upper chest Pain does not jl7 radiate. Pain currently is 6 out of 10 on a pain scale. Quality of pain is described as pressure, Pain began 3 hours ago. Is continuous, [facility] Neuro: Level of Consciousness is awake, alert, obeys commands, Oriented to jl person, place, time, situation, [facility] :30 Cardiovascular: Reports chest pain, Patient's skin is warm and dry. Rhythm is jl sinus rhythm [facility] 30 Respiratory: Airway is patent Respiratory effort is even, unlabored, Respiratory [facility] pattern is regular, symmetrical, [facility] :30 Derm: Skin is pink, warm \T\ dry. 7 [facility] 19:13 19:13 Response: No adverse reaction; IV Status: Completed infusion; [facility]
[2024-06-03 13:50] VITALS: TEMP 97.8
[2024-06-03 13:56] VITALS: BP 126/68; O2SAT 95
--- NOTE | 2024-06-05 12:54 | EKG ---
Test Date: 2024-06-03 Test Time: 09:59:30 Home Health Lpn: CORINE MEASUREMENT RESULTS: Intervals: Rate: 72 [place]: 190 QRSD: 92 QT: 384 QTc: 420 [place]: P: 75 [place]: 190 QRS: 58 T: 89 INTERPRETIVE STATEMENTS: Normal sinus rhythm Nonspecific T wave abnormality Abnormal ECG Compared to ECG 02/13/2024 05:56:24 Sinus arrhythmia no longer present T-wave abnormality still present Electronically Signed On 06-05-24 12:48:47 CDT by Torrey Hale
== END 2024-06-03 13:37 | disposition home or self-care (01) ==
LOC: ER 09:51
DX: R07.9 Chest pain, unspecified (principal); K57.92 Diverticulitis of intestine, part unspecified, without perforation or abscess without bleeding; J44.9 Chronic obstructive pulmonary disease, unspecified; E11.9 Type 2 diabetes mellitus without complications; I10 Essential (primary) hypertension; E78.5 Hyperlipidemia, unspecified; F03.90 Unspecified dementia, unspecified severity, without behavioral disturbance, psychotic disturbance, mood disturbance, and anxiety; M54.9 Dorsalgia, unspecified
CPT/HCPCS: 96361; 93005; 85025; 80048; 36415; 83735; 85610; 80076; 84484 ×2; 83880; 71275; 74175; 71045; 96360; 99285; Q9967; J7030

== ENCOUNTER 2025-01-16 12:29 | Emergency (ER) | payer OTHER ==
--- OUTSIDE RECORDS SUMMARY | 2025-01-16 12:32 | XMS REPORT | Continuity of Care Document ---
Author Name Unknown Address [address] [id number] [address] [place] [address] [facility] Address [address] [facility] [address] [place] [address] Care Team Providers Care Bar Examiner Name Role Phone Unavailable Unavailable Unavailable Problems Condition Name Condition Details Condition Category Status Onset Date Resolution Date Last Treatment Date Treating Clinician Comments Source Diabetes mellitus (disorder) Diabetes mellitus (disorder) Active Problem 07/12/2023 [facility] Problem Active 2023-07-12 11:19:01 Hieu Rivero Headache (finding) Headache (finding) Active Problem 07/12/2023 [facility] Problem Active 2023-07-12 11:19:01 Hieu Rivero Hypertensi ve disorder, systemic arterial (disorder) Hypertensi ve disorder, systemic arterial (disorder) Active Problem 07/12/2023 [facility] Problem Active 2023-07-12 11:19:01 Hieu Rivero Posttrauma tic stress disorder (disorder) Posttrauma tic stress disorder (disorder) Active Problem 07/12/2023 [facility] Problem Active 2023-07-12 11:19:01 Hieu Rivero Backache (finding) Backache (finding) Active Problem 07/12/2023 [facility] Problem Active 2023-07-12 11:19:01 Hieu Rivero Chronic obstructiv e lung disease (disorder) Chronic obstructiv e lung disease (disorder) Active Problem 07/12/2023 [facility] Problem Active 2023-07-12 11:19:01 Hieu Rivero Dementia (disorder) Dementia (disorder) Active Problem 07/12/2023 [facility] Problem Active 2023-07-12 11:19:01 Hieu Rivero Allergies, Adverse Reactions, Alerts Allergy Name Allergy Type Status Severity Reaction(s) Onset Date Inactive Date Treating Clinician Comments Source No Known Medicati on Allergie s No Known Medicati on Allergie s Active Hieu Rivero Social History Smoking Status Start Date Stop Date Source Tobacco smoking status Keirajohn tuckermicki Rivero Medications Ordered Medication Name Filled Medication Name Start Date Stop Date Current Medication? Ordering Clinician Indication Dosage Frequency Signature (SIG) Comments Components Source donepezil 10 mg oral tablet -15 15:43: 00 Yes 10 mg = 1 tab, PO, Daily, # 90 tab, 1 Refill(s), Pharmacy: [id number], 170.18, cm, 10/09/22 9:30:00 POCKET MARKER, Height, 80.625, kg, 10/09/22 9:30:00 POCKET MARKER, Weight Memjose micki Rivero memantine 10 mg oral tablet 10-09 16:03: 00 Yes 10 mg = 1 tab, PO, BID, # 60 tab, 3 Refill(s), Pharmacy: [id number], 170.18, cm, 10/09/22 9:30:00 POCKET MARKER, Height, 80.625, kg, 10/09/22 9:30:00 POCKET MARKER, Weight Memjose sweet Mat donepezil 10 mg oral tablet 10-09 16:03: 00 Yes 10 mg = 1 tab, PO, Daily, # 30 tab, 3 Refill(s), Pharmacy: [id number], 170.18, cm, 10/09/22 9:30:00 POCKET MARKER, Height, 80.625, kg, 10/09/22 9:30:00 POCKET MARKER, Weight Memjose Rivero losartan 100 mg oral tablet 10-09 15:22: 00 Yes TAKE 1 TABLET BY MOUTH EVERY DAY Hieu Rivero pantoprazol e 40 mg oral enteric coated tablet 10-09 15:22: 00 Yes TAKE 1 TABLET BY MOUTH EVERY DAY Hieu Rivero cloNIDine 0.3 mg oral tablet 10-09 15:22: 00 Yes TAKE 1 TABLET BY MOUTH THREE TIMES A DAY Hieu Rivero metFORMIN 500 mg oral tablet 10-09 15:22: 00 Yes TAKE 1 TABLET BY MOUTH TWICE A DAY Memjose Rivero citalopram 20 mg oral tablet 10-09 15:22: 00 Yes TAKE 1 TABLET BY MOUTH EVERY DAY Hieu Rivero Non-Formula ry Home Medication 10-09 15:21: 00 Yes Itzel Turner Dynamic Brain, sleep 3 natures bounty, Refill(s) 0 Hieu Rivero Aleve 10-09 15:20: 00 Yes l, PO, Q12H, 0 Refill(s) Hieu Rivero levocetiriz ine 5 mg oral tablet 10-09 15:20: 00 Yes 5 mg = 1 tab, PO, Bedtime, PRN as needed for allergy symptoms, # 30 tab, 0 Refill(s) Hieu Rivero furosemide 40 mg oral tablet 10-09 15:19: 00 Yes 40 mg = 1 tab, PO, Daily, # 90 tab, 0 Refill(s) Hieu Rivero hydrALAZINE 50 mg oral tablet 10-09 15:19: 00 Yes 50 mg = 1 tab, PO, QID, 1.5 tabs TID, 0 Refill(s) Hieu Rivero atorvastati n 20 mg oral tablet 10-09 15:18: 00 Yes 20 mg = 1 tab, PO, Bedtime, # 30 tab, 0 Refill(s) Hieu Rivero meloxicam 7.5 mg oral tablet 10-09 15:18: 00 Yes 7.5 mg = 1 tab, PO, Daily, # 30 tab, 1 Refill(s) Hieu Rivero Klor-Con 10 10-09 15:18: 00 Yes 10 mEq, PO, BID, 0 Refill(s) Hieu Rivero budesonide- formoterol 160 mcg-4.5 mcg/inh inhalation aerosol with adapter 10-09 15:18: 00 Yes 2 puff, INHALATION , BID, # 6 gm, 0 Refill(s) Hieu Rivero acetaminoph en-hydrocod one 325 mg-7.5 mg oral tablet 10-09 15:15: 00 Yes 1 tab, PO, Q6H, PRN Pain, # 28 tab, 0 Refill(s) Memoria l Mat Vital Signs Vital Name Observation Time Observation Value Comments S rohan Systolic (mm Hg) 2022-10-09 15:11:00 Delfino Rivero Diastolic (mm Hg) 2022-10-09 15:11:00 Delfino Rivero Heart Rate 2022-10-09 15:11:00 Keirajohn Rivero Height 2022-10-09 15:11:00 5 [ft_i] Ninfa cathy Rivero Weight 2022-10-09 15:11:00 Keirajohn Rivero BMI Calculated 2022-10-09 15:11:00 M phil Rivero Encounters Start Date/Time End Date/Time Encounter Type Admission Type Attending [facility] Facility Care Department Encounter ID Source 2023-07-08 18:55:02 2023-07-10 04:59:59 Outside Medical Records [facility] [id number] Hieu Rivero 2022-11-06 16:45:00 2022-11-06 16:45:00 Ambulatory Pre-Reg [facility] [id number] Hieu Rivero 2022-10-09 15:00:00 2022-10-10 05:59:59 Outpatient [facility] [id number] Hieu Rivero
[2025-01-16 12:59] LABS: Absolute Eosinophils 0.2 K/uL (0-0.5); Absolute Lymphocytes (CBC) 1.2 K/uL (0.7-4.9); Absolute Monocytes 0.4 K/uL (0.1-1.3); Absolute Neutrophil 4.4 K/uL (1.8-8.0); Basophils % 0.7 % (0-1.3); Eosinophils % 2.6 % (0-4.4); Hematocrit 37.3 % (39.6-49.0); Hemoglobin 12.9 g/dL (13.6-17.9); Lymphocytes % 19.6 % (15.3-44.8); MCH 31.9 pg (27.0-35.0); MCHC 34.5 g/dL (32.0-36.0); MCV 92.4 fL (80-100); Monocytes % 6.7 % (3.3-12.3); Neutrophils % 70.4 % (41.7-73.7); Platelets 221 thou/uL (152-406); RBC Red Blood Cell Count 4.04 M/uL (4.33-5.43); Red Cell Distribution Width 15.2 % (12.1-15.2)
--- NOTE | 2025-01-16 13:05 | RAD REPORT ---
EXAMINATION: ONE VIEW CHEST XR CLINICAL INDICATION: CHEST PAIN TECHNIQUE: Frontal chest projection is submitted. Examination is limited by patient positioning and t echnique. COMPARISON: 06/03/2024 FINDINGS: Small calcified granulomata. The lungs are otherwise mildly emphysematous but clear. The heart is upp er limit of normal in size. No displaced fractures identified. IMPRESSION: COPD without an acute process suspected.
[2025-01-16 13:10] LABS: Anion Gap 9.3 mEq/L (5.0-15.0); Potassium 3.3 mEq/L (3.5-5.1); Troponin High Sensitivity 10.9 pg/mL (<58.9)
--- NOTE | 2025-01-16 13:52 | ER ---
Nurse's Notes [facility] Name: Victoriano Coronel Age: 74 yrs Sex: Male : 1950 Arrival Date: 01/16/2025 Time: 12:29 Bed 6 Private MD: Diagnosis: Chest pain, unspecified Presentation: 01/16 12:32 Chief complaint: Patient states: midsternal chest pains off and on all day today. iw Coronavirus screen: At this time, the client does not indicate any symptoms associated with coronavirus-19. Ebola Screen: No symptoms or risks identified at this time. Initial Sepsis Screen: Does the patient meet any 2 criteria? No. Patient's initial sepsis screen is negative. Does the patient have a suspected source of infection? No. Patient's initial sepsis screen is negative. Risk Assessment: Do you want to hurt yourself or someone else? Patient reports no desire to harm self or others. Onset of symptoms was January 16, 2025. 12:32 Method Of Arrival: Wheelchair iw 12:32 Acuity: JAVI 3 iw Triage Assessment: 12:32 General: Appears in no apparent distress. Behavior is cooperative, appropriate for age, bp anxious. Pain: Complains of pain in chest. EENT: No deficits noted. Neuro: No deficits noted. Cardiovascular: Rhythm is sinus rhythm. Respiratory: No deficits noted. GI: No signs and/or symptoms were reported involving the gastrointestinal system. : No signs and/or symptoms were reported regarding the genitourinary system. Derm: No deficits noted. Musculoskeletal: No deficits noted. Historical: - Allergies: 12:33 No Known Allergies; iw - PMHx: 12:33 Hyperlipidemia; Diabetes - NIDDM; Dementia; COPD; chronic back pain; Hypertension; iw - PSHx: 12:33 None; iw - Immunization history:: Adult Immunizations up to date. - Infectious Disease History:: Denies. - Social history:: Smoking status: Patient reports use of chewing tobacco. - Family history:: not pertinent. - Hospitalizations: : No recent hospitalization is reported. Screenin:40 [facility] ED Fall Risk Assessment (Adult) History of falling in the last 3 months, bp including since admission No falls in past 3 months (0 pts) Confusion or Disorientation No (0 pts) Intoxicated or Sedated No (0 pts) Impaired Gait No (0 pts) Mobility Assist Device Used No (0 pt) Altered Elimination No (0 pt) Score/Fall Risk Level 0 - 2 = Low Risk Oriented to surroundings. Abuse screen: Denies threats or abuse. Denies injuries from another. Nutritional screening: No deficits noted. Tuberculosis screening: No symptoms or risk factors identified. Assessment: 12:33 General: Appears in no apparent distress. Behavior is cooperative, appropriate for age, bp anxious. Pain: Pain does not radiate. Pain began 4 hours ago. 13:39 Reassessment: Patient appears in no apparent distress at this time. Patient is alert, bp oriented x 3, equal unlabored respirations, skin warm/dry/pink. Vital Signs: 12:32 BP 145 / 78; Pulse 94; Resp 18; Temp 98.8; Pulse Ox 95% on R/A; Weight 68.04 kg; Height iw 5 ft. 8 in. ; Pain 10/10; 13:37 BP 160 / 96; Pulse 84; Resp 16; Pulse Ox 96% ; bp 12:32 Body Mass Index 22.81 (68.04 kg, 172.72 cm) iw 12:32 Pain Scale: Adult iw ED Course: 12:30 Patient arrived in ED. mr 12:33 Triage completed. iw 12:34 Felipe Harris MD is Attending Physician. rn 12:34 Arm band placed on. iw 12:35 Jose Garcia, JUNG is Primary Nurse. bp 13:03 XRAY Chest (1 view) In Process Unspecified. EDMS 13:40 Patient has correct armband on for positive identification. Provided Education on: NA. bp Client placed on continuous cardiac and pulse oximetry monitoring. NIBP monitoring applied. 13:58 No provider procedures requiring assistance completed. IV discontinued, intact, bp bleeding controlled, No redness/swelling at site. Pressure dressing applied. Patient maintains SpO2 saturation greater than 95% on room air. Administered Medications: No medications were administered Outcome: 13:52 Discharge ordered by MD. rn 13:58 Discharged to home ambulatory, with family, bp 13:58 Condition: stable 13:58 Discharge instructions given to patient, Instructed on discharge instructions, follow up and referral plans. Demonstrated understanding of instructions, follow-up care, 13:59 Patient left the ED. bp Signatures: Dispatcher [employer] EDSC Kelley Hawkins, Reg Reg mr Dona Medellin, RN RN iw Felipe Harris MD MD rn Peltier, Brian, RN RN bp Corrections: (The following items were deleted from the chart) 12:34 12:32 BP 145 / 78; Pulse 94bpm; Resp 18bpm; Pulse Ox 95% RA; Temp 98.8F; Pain 06/29, iw Adult; iw
--- NOTE | 2025-01-16 13:52 | EDPHYS ---
Physician Documentation [facility] Name: Victoriano Coronel Age: 74 yrs Sex: Male : 1950 Arrival Date: 01/16/2025 Time: 12: Bed 6 Private MD: ED Physician Felipe Harris HPI: 01/16 12:55 This 74 yrs old Male presents to ER via Wheelchair with complaints of Chest Pain. rn 12:55 The patient or guardian reports chest pain that is located primarily in the anterior rn chest wall. Onset: this morning. The pain does not radiate. Associated signs and symptoms: Pertinent positives: shortness of breath, Pertinent negatives: cough, diaphoresis. The chest pain is described as aching, a heaviness. Duration: The patient or guardian reports multiple episodes, that are intermittent. Severity of pain: At its worst the pain was mild in the emergency department the pain is unchanged. Patient reports intermittent chest pain since this morning. found him outside and she thinks he had a panic attack which she has frequently. Patient then reported chest pain on a second episode after walking down the driveway. states his heart was checked a year ago, admission was recommended but patient refused and went home. No fever or chills. Has COPD but no new cough. No hemoptysis. No trauma. No abdominal pain or vomiting. Denies current chest pain or shortness of breath.. Historical: - Allergies: 12:33 No Known Allergies; iw - PMHx: 12:33 Hyperlipidemia; Diabetes - NIDDM; Dementia; COPD; chronic back pain; Hypertension; iw - PSHx: 12:33 None; iw - Immunization history:: Adult Immunizations up to date. - Infectious Disease History:: Denies. - Social history:: Smoking status: Patient reports use of chewing tobacco. - Family history:: not pertinent. - Hospitalizations: : No recent hospitalization is reported. ROS: 12:55 Constitutional: Negative for fever, chills, and weight loss, Cardiovascular: Negative rn for palpitations, and edema Respiratory: Negative for cough, wheezing, and pleuritic chest pain Abdomen/GI: Negative for abdominal pain, nausea, vomiting, diarrhea, and constipation, MS/Extremity: Negative for injury and deformity, Neuro: Negative for headache, weakness, numbness, tingling, and seizure, Exam: 12:55 Constitutional: This is a well developed, well nourished patient who is awake, alert, rn and in no acute distress. Cardiovascular: Regular rate and rhythm. No pulse deficits. Respiratory: No increased work of breathing, no retractions or nasal flaring. Abdomen/GI: Soft, non-tender MS/ Extremity: Pulses equal, no cyanosis. Neuro: Awake and alert, GCS 15 Vital Signs: 12:32 BP 145 / 78; Pulse 94; Resp 18; Temp 98.8; Pulse Ox 95% on R/A; Weight 68.04 kg; Height iw 5 ft. 8 in. ; Pain 10/10; 13:37 BP 160 / 96; Pulse 84; Resp 16; Pulse Ox 96% ; bp 12:32 Body Mass Index 22.81 (68.04 kg, 172.72 cm) iw 12:32 Pain Scale: Adult iw MDM: 12:34 Medical Screening Exam initiated rn 13:49 Differential diagnosis: acute myocardial infarction, acute pericarditis, anxiety, rn coronary artery disease chest wall pain, costochondritis, esophagitis, gastroesophageal reflux disease (GERD), pleurisy, pneumonia, pneumothorax. HEART Score: History: Slightly Suspicious (0), ECG: Non specific repolarization disturbance / LBTB / PM (1), Age: > or = 65 years (2), Risk Factors: 1 or 2 risk factors (1), Troponin: < or = 1 x Normal Limit (0), Total Score = 4. Data reviewed: vital signs, nurses notes, lab test result(s), EKG, radiologic studies, plain films, and as a result, I will admit patient. Consideration of Admission/Observation Escalation of care including admission/observation considered. Care significantly affected by the following chronic conditions: Diabetes, Hypertension, Chronic Obstructive Pulmonary Disease. Counseling: I had a detailed discussion with the patient and/or guardian regarding the historical points, exam findings, and any diagnostic results supporting the discharge/admit diagnosis, lab results, radiology results, the need for further work-up and treatment in the hospital. Refusal of service: The patient/guardian displays adequate decision making capability and despite a detailed discussion of alternatives, benefits, risks, and consequences refuses: Admission to the hospital for further work-up and treatment. ED course: No acute findings and workup at this time. Chest x-ray images negative for pneumonia or pneumothorax per my interpretation. Troponin negative. Recommend admission for chest pain workup, patient refuses. Spouse states that he has done this before and she cannot convince him to stay. Patient understands risk of leaving without further evaluation. I went over results with patient and spouse and printed results and handed to them. Strongly recommend cardiology follow-up if she can convince him.. 01/16 12:35 Order name: Basic Metabolic Panel; Complete Time: 13:15 rn 01/16 12:35 Order name: CBC with Diff; Complete Time: 13:15 rn 01/16 12:35 Order name: NT PRO-BNP; Complete Time: 13:15 rn 01/16 12:35 Order name: Troponin HS; Complete Time: 13:15 rn 01/16 12:35 Order name: XRAY Chest (1 view); Complete Time: 13:15 rn 01/16 12:35 Order name: Cardiac monitoring; Complete Time: 12:57 rn 01/16 12:35 Order name: EKG - Nurse/Tech; Complete Time: 12:57 rn 01/16 12:35 Order name: IV Saline Lock; Complete Time: 12:57 rn 01/16 12:35 Order name: Labs collected and sent; Complete Time: 12:57 rn 01/16 12:35 Order name: O2 Per Protocol; Complete Time: 12:57 rn 01/16 12:35 Order name: O2 Sat Monitoring; Complete Time: 12:57 rn Administered Medications: No medications were administered Disposition Summary: 01/16/25 13:52 Discharge Ordered Notes: Location: Home rn Problem: new rn Symptoms: have improved rn Condition: Stable rn Diagnosis - Chest pain, unspecified rn Followup: rn - With: Private Physician - When: As needed - Reason: Recheck today's complaints, Re-evaluation by your physician Discharge Instructions: - Discharge Summary Sheet rn - Nonspecific Chest Pain, Adult rn Forms: - Medication Reconciliation Form rn - 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 EDMS EDMS 12:35 12:35 CBC+H.LAB.BRZ ordered. EDMS EDMS 12:35 12:35 PROBNP+C.LAB.BRZ ordered. EDWA EDWA 12:35 12:35 Troponin High Sensitivity+C.LAB.BRZ ordered. EDWA EDWA 12:36 12:35 Chest Single View+RAD.RAD.BRZ ordered. [facility] EDWA 13:51 13:49 ED course: No acute findings and workup at this time. Chest x-ray images negative rn for pneumonia or pneumothorax per my interpretation. Troponin negative. Recommend admission for chest pain workup, patient refuses. Spouse states that he has done this before and she cannot convince him to stay. Patient understands risk of leaving without further evaluation.. rn
[2025-01-17 05:05] VITALS: TEMP 98.8
[2025-01-17 05:07] VITALS: BP 160/96; O2SAT 96
--- NOTE | 2025-01-17 12:36 | EKG ---
Test Date: 2025-01-16 Test Time: 12:54:36 Cell Installer: GIGI MEASUREMENT RESULTS: Intervals: Rate: 87 NC: 176 QRSD: 88 QT: 366 QTc: 440 [place]: P: 78 NC: 176 QRS: 60 T: 104 INTERPRETIVE STATEMENTS: Normal sinus rhythm T wave abnormality, consider inferior ischemia Abnormal ECG Compared to ECG 06/03/2024 09:59:30 Possible ischemia now present T-wave abnormality still present Electronically Signed On 01-17-25 12:35:14 CDT by Nicolas Grossman
== END 2025-01-16 13:59 | disposition home or self-care (01) ==
LOC: ER 12:29
DX: R07.9 Chest pain, unspecified (principal); I10 Essential (primary) hypertension; J44.9 Chronic obstructive pulmonary disease, unspecified; F17.220 Nicotine dependence, chewing tobacco, uncomplicated
CPT/HCPCS: 36415; 71045; 80048; 83880; 84484; 85025; 93005